=== PATIENT | female | born 1965 | race Asian ===

== ENCOUNTER 2019-09-25 17:03 | Emergency (ER) | payer OTHER ==
--- OUTSIDE RECORDS SUMMARY | 2019-09-25 17:06 | XMS REPORT | Summary of Care ---
:1965 Author Organization [facility] Address [address] [place] [address] Care Team Providers Name Role Phone Vianca Barrera MD Primary Care Provider Reason for Visit Reason Comments Refill Request HYDROcodone-acetaminophen (N ORCO) 10-325 mg tablet ( Please send to [facility] ) Encounter Details Date Type Department Care Team Description 12/22/2018 Telephone [facility] Infectious Gilson Barrera, Refill Request Diseases- Gypsy MCDONALD (HYDROcodone-acetaminop [facility] [address] [facility] hen (NORCO) 10-325 mg [address] [place], [place] tabl et ( Please send to [address] [place] [address] Clinic ) ) [phone] [phone] Allergies Active Allergy Reactions Severity Noted Date Comments Iodine And Iodide Containing Products Hives 09/2012 documented as of this encounter (statuses as of 12/30/2018) Medications Medication Sig Dispensed Refills Start Date End Date Status ferrous sulfate (IRON) Take 1 Cap 90 Cap 0 08/03/2011 Active 325 mg (65 mg iron) SR by mouth capsule daily with breakfast. IBUPROFEN 800 mg TAKE 1 90 tablet 5 08/23/2018 Ac tive tablet TABLET BY MOUTH 3 TIMES DAILY WITH MEALS. Food Supplement, Take 237 mL 12 Can 2 08/24/2018 Active Lactose-Free (ENSURE by mouth 3 ACTIVE HIGH PROTEIN) (three) liquidIndications: HIV times daily. (human immunodeficiency virus infection), Hypertension, unspecified type amLODIPine 10 mg Take 1 30 tablet 5 08/24/2018 Ac tive tabletIndications: HIV tablet by (human mouth every immunodeficiency virus morning. infection), Hypertension, unspecified type furosemide 20 mg Take 1 30 tablet 3 08/24/2018 Ac tive tabletIndications: tablet by Edema, unspecified mouth daily. type, Snores KCL 20 mEq Take 1 30 tablet 1 08/24/2018 Active tabletIndications: tablet by Edema, unspecified mouth daily. type, Snores tiZANidine 2 mg Take 1 90 capsule 5 10/24/2018 Ac tive capsuleIndications: capsule by Cervicalgia mouth 3 (three) times daily. zolpidem (AMBIEN CR) Take 1 30 tablet 0 11/09/2018 Active 12.5 mg CR tablet by tabletIndications: EVAN mouth at (generalized anxiety bedtime as disorder) needed for Sleep. traZODONE 100 mg Take 2 60 tablet 2 11/09/2018 Ac tive tabletIndications: tablets by Primary insomnia mouth at bedtime. losartan 50 mg Take 1 30 tablet 3 11/21/2018 Acti ve tabletIndications: tablet by Essential hypertension mouth daily. HYDROcodone-acetaminop Taper dose - 30 tablet 0 11/23/2018 Active hen (NORCO) 10-325 mg 1 po q 6h x tabletIndications: 3d, 1 PO q8h Cervicalgia x3d, 1 po BIDx3d, 1 QD x 3d. pantoprazole 40 mg EC TAKE 1 60 tablet 5 11/23/2018 Active tabletIndications: HIV TABLET BY (human MOUTH 2 immunodeficiency virus (TWO) TIMES infection) DAILY. amitriptyline 75 mg Take 1 30 tablet 5 11/23/2018 Active tabletIndications: HIV tablet by (human mouth at immunodeficiency virus bedtime. infection) abacavir-dolutegravir- Take 1 30 tablet 5 11/23/2018 Active lamivudine 600-50-300 tablet by mg per mouth every tabletIndications: HIV morning. (human immunodeficiency virus infection) zolpidem 10 mg Take 1 30 tablet 0 12/08/2018 Acti ve tabletIndications: tablet by Primary insomnia mouth at bedtime as needed for Insomnia. LORazepam 2 mg Take 1 60 tablet 0 12/30/2018 Acti ve tabletIndications: EVAN tablet by (generalized anxiety mouth 2 disorder) (two) times daily as needed (anxiety). LORazepam 2 mg Take 1 60 tablet 0 11/09/2018 Disc ontinued tabletIndications: EVAN tablet by 9 (generalized anxiety mouth 2 disorder) (two) times daily as needed (anxiety). 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 Spina bifida with hydrocephalus 06/09/2006 Overview: ICD10 Diagnosis Term Utility Clerk Utility documented as of this encounter (statuses as of 12/30/2018) Resolved Problems Problem Noted Date Resolved Date S/P total hysterectomy and bilateral salpingo-oophorectomy 0 05/27/2016 05/27/2016 Anemia 03/25/2016 05/27/2016 Thrombocytopenia 03/25/2016 05/27/2016 Weight loss 01/23/2015 05/27/2016 Diarrhea 01/23/2015 05/27/2016 Lymphadenopathy 01/23/2015 05/27/2016 Insomnia 06/27/2013 05/27/2016 Irregular menstrual cycle 12/17/2006 05/27/2016 Pleurisy 12/09/2005 05/27/2016 Overview: ICD10 Diagnosis Term Utility Clerk Utility Cervicitis and endocervicitis 12/09/2005 05/27/2016 Pain in limb 12/09/2005 05/27/2016 documented as of this encounter (statuses as of 12/30/2018) Immunizations Name Administration Dates Next Due Hep B, Adol or Pedi Dosage 01/01/2016, 07/17/2015, 01/06/201 6 Hepatitis A Adult 08/24/2018 Influenza Virus Vaccine Quad .5 mL IM 6+ 08/24/2018 MO Influenza Virus Vaccine Quad IM 3+ YRS 03/31/2016 Pneumococcal Polysaccharide, PPSV23 08/24/2018 (PNEUMOVAX) Tdap 08/24/2018 documented as of this encounter Social History Tobacco Use Types Packs/Day Years Used Date Never Smoker Smokeless Tobacco: Never Used Alcohol Use Drinks/Week oz/Week Comments No 0 Standard drinks or equivalent 0.0 Sex Assigned at Date Recorded Not on file Job Start Date Occupation Industry Not on file Not on file Not on file Travel History Travel Start Travel End No recent travel history available. documented as of this encounter Last Filed Vital Signs Not on filedocumented in this encounter Plan of Treatment Date Type Specialty Care Team Description 02/15/2019 Office Visit Infectious Disease Janessa Lee MD [address] [place] [phone] 02/22/2019 Office Visit Cardiology No Hearn M D [address] [place], [place] [address] [phone] 03/01/2019 Office Visit Infectious Disease Tono Barrera MD [address] [place] [address] Health Maintenance Due Date Last Done Comments PAP SMEAR 11/26/2009 11/26/2006 COLONOSCOPY 2016 Zoster Recombinant Vaccine (SHINGRIX) (1 2016 of 2) MAMMOGRAM 04/13/2018 04/13/2017, 05/07/2011 INFLUENZA VACCINE 01/22/2019 08/24/2018, 03/31/2016 PNEUMOCOCCAL 0-64 YEARS COMBINED SERIES (2 08/25/201908/24 of 3 - PCV13) DTaP,Tdap,and Td Vaccines (2 - Td) 08/24/2028 08/24/2018 documented as of this encounter Results Not on filedocumented in this encounter Visit Diagnoses Diagnosis EVAN (generalized anxiety disorder) Generalized anxiety disorder documented in this encounter Insurance Payer Benefit Plan / Subscriber ID Effective Dates Phone Addre ss Type Group MEDICARE MEDICARE PART xxxxxxxxxxx 2018-Presgabriel [phone] Medicare A & B t 2 [id number] ARELIS SANCHEZ [id number] documented as of this encounter Advance Directives Type Date Recorded Patient Help Desk Internship Explanati on Advance Directives and Living 01/14/2015 2:00 PM Will Power of Senior Business Analyst 08/08/2018 2:03 PM
--- OUTSIDE RECORDS SUMMARY | 2019-09-25 17:06 | XMS REPORT | Summary of Care ---
:1965 Author Organization [facility] Address [address] [place], [place] [id number] Care Team Providers Name Role Phone Vianca Barrera MD Primary Care Provider Reason for Visit Reason Comments Erroneous encounter-disregard Encounter Details Date Type Department Care Team Description 12/08/2017 Refill [facility] Infectious Gilson Barrera, Erroneous Diseases- [place] MD encounter-disregard [address] Floor [phone] [place] [address] [phone] Allergies Active Allergy Reactions Severity Noted Date Comments Iodine And Iodide Containing Products Hives 09/2012 documented as of this encounter (statuses as of 12/22/2018) Medications Medication Sig Dispensed Refills Start Date End Date Status ferrous sulfate (IRON) Take 1 Cap by 90 Cap 0 08/03/2011 Active 325 mg (65 mg iron) SR mouth daily with capsule breakfast. 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 Spina bifida with hydrocephalus 06/09/2006 Overview: ICD10 Diagnosis 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 documented as of this encounter (statuses as of 12/22/2018) Resolved Problems Problem Noted Date Resolved Date S/P total hysterectomy and bilateral salpingo-oophorectomy 0 05/27/2016 05/27/2016 Anemia 03/25/2016 05/27/2016 Thrombocytopenia 03/25/2016 05/27/2016 Weight loss 01/23/2015 05/27/2016 Diarrhea 01/23/2015 05/27/2016 Lymphadenopathy 01/23/2015 05/27/2016 Insomnia 06/27/2013 05/27/2016 Irregular menstrual cycle 12/17/2006 05/27/2016 Pleurisy 12/09/2005 05/27/2016 Overview: ICD10 Diagnosis 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 Cervicitis and endocervicitis 12/09/2005 05/27/2016 Pain in limb 12/09/2005 05/27/2016 documented as of this encounter (statuses as of 12/22/2018) Immunizations Name Administration Dates Next Due Hep B, Adol or Pedi Dosage 01/01/2016, 07/17/2015, 6 Influenza Virus Vaccine Quad IM 3+ YRS 03/31/2016 documented as of this encounter Social History [...] Team Description 02/15/2019 Office Visit Infectious Disease Self, Janessa oconnell MD [address] [place] [address] 02/22/2019 Office Visit Cardiology No Hearn M D [address] [facility] [address] [place], [place] [address] [phone] 03/01/2019 Office Visit Infectious Disease Tono Barrera MD [address] [place], [place] [address] [phone] Health Maintenance Due Date Last Done Comments PAP SMEAR 11/26/2009 11/26/2006 COLONOSCOPY 2016 Zoster Recombinant Vaccine (SHINGRIX) (1 2016 of 2) MAMMOGRAM 04/13/2018 04/13/2017, 05/07/2011 INFLUENZA VACCINE 01/22/2019 08/24/2018, 03/31/2016 PNEUMOCOCCAL 0-64 YEARS COMBINED SERIES (2 08/25/201908/24 of 3 - PCV13) DTaP,Tdap,and Td Vaccines (2 - Td) 08/24/2028 08/24/2018 documented as of this encounter Results CD4 SUBSET ASSAY (12/08/2017 10:47 AM CDT) Pathologist Sig nature CD4 % 29 (L) 31 - 60 % [facility] CD4 Absolute 739 410-1,590 Cells/L [facility] LEONARDO Specimen Blood Performing Organization Address City/State/Zipcode Phone Number [facility] CLIA: [id number], [address] [place], [place] [address] [facility] HCV BY PCR (12/08/2017 10:47 AM CDT) HCV by Real Time PCR Not detected log [facility] Quantitative Log IU/mL SERVICES HCV by Real-Time PCR Not detected [facility] Quantitative IU/mL SERVICES HCV by Real-Time PCR Not Detected Not detected [facility] IU/mL SERVICES Specimen Blood - ARM, LEFT Narrative Performed At [facility] Owusu m2000 RealTime HCV reverse ceo na-polyme rase chain reaction (RT-PCR) assay is used. It is FDA approved for the quantitation of HCV in plasma and serum samples for HCV-infected individua ls. The FDA approved dynamic range of this test is 12 IU/mL to 100,000,000 IU/mL (1.08-8.00 Log IU/mL). Assay results are reported in IU /mL. . Result Interpretation: Not Detected: Target not detected (not the same as negative), <12 IU/mL: Detected (but not quantifiabl e) 12-100,000,000 IU/mL, >100,000,000 IU/mL: >upper limit of quantification. Performing Organization Address City/State/Zipcode Phone Number [facility] CLIA: [id number], [address] [place], [place] [address] [facility] documented in this encounter Visit Diagnoses Diagnosis HIV (human immunodeficiency virus infect ion) - Primary Asymptomatic human immunodeficiency viru s (HIV) infection status documented in this encounter Insurance Payer Benefit Plan / Subscriber ID Effective Dates Phone Addre ss Type Group [facility] MEDICAID OF xxxxxxxxx 2017-19 [address] Medicaid [place] [id number] [place] [address] documented as of this encounter Advance Directives Type Date Recorded Patient Cooperer Explanati on Advance Directives and Living 01/14/2015 2:00 PM Will Power of Elevator Operator Freight 08/08/2018 2:03 PM
--- OUTSIDE RECORDS SUMMARY | 2019-09-25 17:06 | XMS REPORT | Summary of Care ---
:1965 Author Organization [facility] - [facility] Address [address] [place] [address] Care Team Providers Name Role Phone Vianca Barrera MD Primary Care Provider Reason for Referral (Routine) Status Reason Specialty Diagnoses / Procedures Referred By Tyrese sousa Referred To Contact Closed Cardiology Diagnoses Essential hypertension No Hearn MD Procedures ECHO ROUTINE W/DOPPLER COLOR Preferred Location: [address] [place], [place] [address] Phone: Reason for Visit (Routine) Status Reason Specialty Diagnoses / Procedures Referred By Tyrese sousa Referred To Contact Closed Cardiology Diagnoses Essential hypertension No Hearn MD Procedures ECHO ROUTINE W/DOPPLER COLOR Preferred Location: [address] [place], [place] [address] Phone: Encounter Details Date Type Department Care Team Description 12/19/2018 Laboratory Only [facility] No Hearn M D [address] [place] [address] [address] [place] [address] Essential Cardiology- [facility] Cardio Fac [address] Cardio Fac [facility], [address] [place] [address] Allergies Active Allergy Reactions Severity Noted Date Comments Iodine And Iodide Containing Products Hives 09/2012 documented as of this encounter (statuses as of 12/20/2018) Medications Medication Sig Dispensed Refills Start Date End Date Status ferrous sulfate (IRON) Take 1 Cap by 90 Cap 0 08/03/2011 Active 325 mg (65 mg iron) SR mouth daily capsule with breakfast. IBUPROFEN 800 mg tablet TAKE 1 TABLET 90 tablet 5 08/23/2018 Active BY MOUTH 3 TIMES DAILY WITH MEALS. Food Supplement, Take 237 mL by 12 Can 2 08/24/2018 Active Lactose-Free (ENSURE mouth 3 (three) ACTIVE HIGH PROTEIN) times daily. liquidIndications: HIV (human immunodeficiency virus infection), Hypertension, unspecified type amLODIPine 10 mg Take 1 tablet 30 tablet 5 08/24/2018 Active tabletIndications: HIV by mouth every (human immunodeficiency morning. virus infection), Hypertension, unspecified type furosemide 20 mg Take 1 tablet 30 tablet 3 08/24/2018 Active tabletIndications: by mouth daily. Edema, unspecified type, Snores KCL 20 mEq Take 1 tablet 30 tablet 1 08/24/2018 Acti ve tabletIndications: by mouth daily. Edema, unspecified type, Snores tiZANidine 2 mg Take 1 capsule 90 capsule 5 10/24/2018 Active capsuleIndications: by mouth 3 Cervicalgia (three) times daily. zolpidem (AMBIEN CR) Take 1 tablet 30 tablet 0 11/09/2018 Active 12.5 mg CR by mouth at tabletIndications: EVAN bedtime as (generalized anxiety needed for disorder) Sleep. LORazepam 2 mg Take 1 tablet 60 tablet 0 11/09/2018 Active tabletIndications: EVAN by mouth 2 (generalized anxiety (two) times disorder) daily as needed (anxiety). traZODONE 100 mg Take 2 tablets 60 tablet 2 11/09/2018 Active tabletIndications: by mouth at Primary insomnia bedtime. losartan 50 mg Take 1 tablet 30 tablet 3 11/21/2018 Active tabletIndications: by mouth daily. Essential hypertension HYDROcodone-acetaminophe Taper dose - 1 30 tablet 0 11/23/2018 Active n (NORCO) 10-325 mg po q 6h x 3d, 1 tabletIndications: PO q8h x3d, 1 Cervicalgia po BIDx3d, 1 QD x 3d. pantoprazole 40 mg EC TAKE 1 TABLET 60 tablet 5 11/23/2018 Active tabletIndications: HIV BY MOUTH 2 (human immunodeficiency (TWO) TIMES virus infection) DAILY. amitriptyline 75 mg Take 1 tablet 30 tablet 5 11/23/2018 Active tabletIndications: HIV by mouth at (human immunodeficiency bedtime. virus infection) mufxytjb-iyagbadmqmss-bb Take 1 tablet 30 tablet 5 11/23/2018 Active mivudine 600-50-300 mg by mouth every per tabletIndications: morning. HIV (human immunodeficiency virus infection) zolpidem 10 mg Take 1 tablet 30 tablet 0 12/08/2018 Active tabletIndications: by mouth at Primary insomnia bedtime as needed for Insomnia. 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 Spina bifida with hydrocephalus 06/09/2006 Overview: ICD10 Diagnosis 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 Operator Helper Utility documented as of this encounter (statuses as of 12/20/2018) Resolved Problems Problem Noted Date Resolved Date S/P total hysterectomy and bilateral salpingo-oophorectomy 0 05/27/2016 05/27/2016 Anemia 03/25/2016 05/27/2016 Thrombocytopenia 03/25/2016 05/27/2016 Weight loss 01/23/2015 05/27/2016 Diarrhea 01/23/2015 05/27/2016 Lymphadenopathy 01/23/2015 05/27/2016 Insomnia 06/27/2013 05/27/2016 Irregular menstrual cycle 12/17/2006 05/27/2016 Pleurisy 12/09/2005 05/27/2016 Overview: ICD10 Diagnosis Term Casting Operator Helper Utility Cervicitis and endocervicitis 12/09/2005 05/27/2016 Pain in limb 12/09/2005 05/27/2016 documented as of this encounter (statuses as of 12/20/2018) Immunizations Name Administration Dates Next Due Hep B, Adol or Pedi Dosage 01/01/2016, 07/17/2015, 6 Hepatitis A Adult 08/24/2018 Influenza Virus [...] of this encounter Last Filed Vital Signs Vital Sign Reading Time Taken Comments Blood Pressure 124/67 12/19/2018 11:12 AM CDT Pulse 91 12/19/2018 11:12 AM CDT Temperature - - Respiratory Rate - - Oxygen Saturation - - Inhaled Oxygen Concentration - - Weight 108 kg (238 lb) 12/19/2018 11:12 AM CDT Height 172.7 cm (5' 8") 12/19/2018 11:12 AM CDT Body Mass Index 36.19 12/19/2018 11:12 AM CDT documented in this encounter Plan of Treatment Date Type Specialty Care Team Description 02/15/2019 Office Visit Infectious Disease Janessa Lee MD [address] [place] [phone] 02/22/2019 Office Visit Cardiology No Hearn M D [address] [place] [address] [phone] 03/01/2019 Office Visit Infectious Disease Tono Barrera MD [address] [place], [place] [address] Health Maintenance Due Date Last Done Comments PAP SMEAR 11/26/2009 11/26/2006 COLONOSCOPY 2016 Zoster Recombinant Vaccine (SHINGRIX) (1 2016 of 2) MAMMOGRAM 04/13/2018 04/13/2017, 05/07/2011 INFLUENZA VACCINE 01/22/2019 08/24/2018, 03/31/2016 PNEUMOCOCCAL 0-64 YEARS COMBINED SERIES (2 08/25/201908/24 of 3 - PCV13) DTaP,Tdap,and Td Vaccines (2 - Td) 08/24/2028 08/24/2018 documented as of this encounter Procedures Procedure Name Priority Date/Time Associated Diagnosis Comme nts ECHO ROUTINE Routine 12/19/2018 11:09 Essential Results for this W/DOPPLER COLOR AM CDT hypertension procedure ar e in the results section. documented in this encounter Results ECHO ROUTINE W/DOPPLER COLOR Preferred Location: [facility] (12/19/2018 11:09 AM CDT) Specimen Performing Organization Address City/State/Zipcode Phone Number ECHO documented in this encounter Visit Diagnoses Diagnosis Essential hypertension Unspecified essential hypertension documented in this encounter Insurance Payer Benefit Plan / Subscriber ID Effective Dates Phone Addre ss Type Group MEDICARE MEDICARE PART xxxxxxxxxxx 2018-[place] [phone] [address] [facility] Medicare A & B t 2 [id number] [place]LIS SANCHEZ [id number] documented as of this encounter Advance Directives Type Date Recorded Patient Health Careers Instructor Explanati on Advance Directives and Living 01/14/2015 2:00 PM Will Power of Hot End Operator 08/08/2018 2:03 PM
--- OUTSIDE RECORDS SUMMARY | 2019-09-25 17:06 | XMS REPORT ---
:1965 Author Organization Formerly [facility] t Address [address] [place] [address] Care Team Providers Name Role Phone Unavailable Unavailable Unavailable Payers Payer Name Policy Type Policy Number Effective Date Expiration D ate Problems This patient has no known problems. Allergies, Adverse Reactions, Alerts Allergy Allergy Status Severity Reaction(s) Onset Inactive Treating C omments Name Type Date Date Clinician iodine DA Active U 2013-03 00:00:0 0 Medications This patient has no known medications. Results Test Description Test Time Test Comments Text Results Atomic Results Result Comments COMPREHENSIVE METABOLIC PANEL 2018-07-10 02:47:00 Test Item Value Reference Range Comments SODIUM (test code = NA) 135 mmol/l 134.0-147.0 POTASSIUM (test code = K) 3.0 mmol/L 3.6-5.2 CHLORIDE (test code = CL) 98 mmol/l 98.0-107.0 CARBON DIOXIDE (test code = CO2) 27.4 mmol/l 21.0-33.0 ANION GAP (test code = GAP) 12.6 0-20 GLUCOSE (test code = GLU) 99 mg/dl 70.0-110.0 BLOOD UREA NITROGEN (test code = BUN) 10 mg/dl 7.0-18.0 CREATININE (test code = CREAT) 1.11 mg/dL 0.60-1.30 GFR NON BLACK (test code = GFRNONBLACK) 55 mL/min 90-95 GFR BLACK (test code = GFRBLACK) 66 mL/min 109-115 TOTAL PROTEIN (test code = PROT) 9.4 gm/dL 6.4-8.2 ALBUMIN (test code = ALB) 4.2 gm/dl 3.2-4.7 CALCIUM (test code = CA) 9.9 mg/dl 8.0-10.5 BILIRUBIN TOTAL (test code = BILT) 0.3 mg/dl 0.0-1.0 SGOT/AST (test code = AST) 20 Units/L 15.0-37.0 SGPT/ALT (test code = ALT) 25 Units/L 12.0-78.0 ALKALINE PHOSPHATASE TOTAL (test code = ALKP) 94 Units/L 50 .0-136.0 [id number] 02:47:00 Test Item Value Reference Range Comments LIPASE (test code = LIP) 78 Units/L 65.0-230.0 B-TYPE NATRIURETIC [id number] 02:47:00 Test Item Value Reference Range Comments B-TYPE NATRIURETIC PEPTIDE (test code = BNP) <5.0 PG/ML 5-1 00 CARDIAC ENZYMES [id number] 02:47:00 Test Item Value Reference Range Comments CREATINE KINASE (CK) (test 184 Units/L 26-192 code = CK) CKMB (test code = CKMBT) 1.1 NG/ML 0.5-5.[address] CKMB INDEX CALCULATION WHEN EVER THE CKMBT ISREPORTED <0 .5 CKMB INDEX (test code = 0.6 0.0-2.5 CKMBI) TROPONIN-I (test code = <0.02 NG/ML 0.00-0.06 REFERENC E RANGE TROPONIN I TROPI) HEALTHY INDIVIDU ALS: <0.06 ng/mL R/O ISCHEM IA: 0.07 - 0.60 ng/mL CUT-O FF RANGE FOR AMI: 0.60 - 1.5 ng/mL [id number] 02:47:00 Test Item Value Reference Range Comments ALCOHOL (test code = ALC) 0.00 gm/dL 0.00-0.00 ETHYL ALCOHOL VALUES - INTERPRETATION: 0.050 GM/DL - NOT INTOXICATED 0.100 GM/DL - INTOXICATED 0.35 0-0.450 GM/DL - SEVERELY INTOXIC ATED 0.550 GM/DL- FATAL INT OXICATION COMPREHENSIVE METABOLIC [id number] 02:35:00 Test Item Value Reference Range Comments SODIUM (test code = NA) 135 mmol/l 134.0-147.0 POTASSIUM (test code = K) 3.0 mmol/L 3.6-5.2 CHLORIDE (test code = CL) 98 mmol/l 98.0-107.0 CARBON DIOXIDE (test code = CO2) 27.4 mmol/l 21.0-33.0 ANION GAP (test code = GAP) 12.6 0-20 GLUCOSE (test code = GLU) 99 mg/dl 70.0-110.0 BLOOD UREA NITROGEN (test code = BUN) 10 mg/dl 7.0-18.0 CREATININE (test code = CREAT) 1.11 mg/dL 0.60-1.30 GFR NON BLACK (test code = GFRNONBLACK) 55 mL/min 90-95 GFR BLACK (test code = GFRBLACK) 66 mL/min 109-115 TOTAL PROTEIN (test code = PROT) 9.4 gm/dL 6.4-8.2 ALBUMIN (test code = ALB) 4.2 gm/dl 3.2-4.7 CALCIUM (test code = CA) 9.9 mg/dl 8.0-10.5 BILIRUBIN TOTAL (test code = BILT) 0.3 mg/dl 0.0-1.0 SGOT/AST (test code = AST) 20 Units/L 15.0-37.0 SGPT/ALT (test code = ALT) 25 Units/L 12.0-78.0 ALKALINE PHOSPHATASE TOTAL (test code = ALKP) 94 Units/L 50 .0-136.0 [id number] 02:35:00 Test Item Value Reference Range Comments LIPASE (test code = LIP) 78 Units/L 65.0-230.0 B-TYPE NATRIURETIC [id number] 02:35:00 Test Item Value Reference Range Comments B-TYPE NATRIURETIC PEPTIDE (test code = BNP) PG/ML 5-1 00 CARDIAC ENZYMES [id number] 02:35:00 Test Item Value Reference Range Comments CREATINE KINASE (CK) (test 184 Units/L 26-192 code = CK) CKMB (test code = CKMBT) 1.1 NG/ML 0.5-5.[address] CKMB INDEX CALCULATION WHEN EVER THE CKMBT ISREPORTED <0 .5 CKMB INDEX (test code = 0.6 0.0-2.5 CKMBI) TROPONIN-I (test code = <0.02 NG/ML 0.00-0.06 REFERENC E RANGE TROPONIN I TROPI) HEALTHY INDIVIDU ALS: <0.06 ng/mL R/O ISCHEM IA: 0.07 - 0.60 ng/mL CUT-O FF RANGE FOR AMI: 0.60 - 1.5 ng/mL [id number] 02:35:00 Test Item Value Reference Range Comments ALCOHOL (test code = ALC) 0.00 gm/dL 0.00-0.00 ETHYL ALCOHOL VALUES - INTERPRETATION: 0.050 GM/DL - NOT INTOXICATED 0.100 GM/DL - INTOXICATED 0.35 0-0.450 GM/DL - SEVERELY INTOXIC ATED 0.550 GM/DL- FATAL INT OXICATION COMPREHENSIVE METABOLIC [id number] 02:17:00 Test Item Value Reference Range Comments SODIUM (test code = NA) 135 mmol/l 134.0-147.0 POTASSIUM (test code = K) 3.0 mmol/L 3.6-5.2 CHLORIDE (test code = CL) 98 mmol/l 98.0-107.0 CARBON DIOXIDE (test code = CO2) 27.4 mmol/l 21.0-33.0 ANION GAP (test code = GAP) 12.6 0-20 GLUCOSE (test code = GLU) mg/dl 70.0-110.0 BLOOD UREA NITROGEN (test code = BUN) mg/dl 7.0-18.0 CREATININE (test code = CREAT) mg/dL 0.60-1.30 GFR NON BLACK (test code = GFRNONBLACK) mL/min 90-95 GFR BLACK (test code = GFRBLACK) mL/min 109-115 TOTAL PROTEIN (test code = PROT) gm/dL 6.4-8.2 ALBUMIN (test code = ALB) gm/dl 3.2-4.7 CALCIUM (test code = CA) mg/dl 8.0-10.5 BILIRUBIN TOTAL (test code = BILT) mg/dl 0.0-1.0 SGOT/AST (test code = AST) Units/L 15.0-37.0 SGPT/ALT (test code = ALT) Units/L 12.0-78.0 ALKALINE PHOSPHATASE TOTAL (test code = ALKP) Units/L 50 .0-136.0 [id number] 02:17:00 Test Item Value Reference Range Comments LIPASE (test code = LIP) Units/L 65.0-230.0 B-TYPE NATRIURETIC [id number] 02:17:00 Test Item Value Reference Range Comments B-TYPE NATRIURETIC PEPTIDE (test code = BNP) PG/ML 5-1 00 CARDIAC ENZYMES [id number] 02:17:00 Test Item Value Reference Range Comments CREATINE KINASE (CK) (test code = CK) Units/L 26-192 CKMB (test code = CKMBT) NG/ML 0.5-5.0 CKMB INDEX (test code = CKMBI) 0.0-2.5 TROPONIN-I (test code = TROPI) NG/ML 0.00-0.06 [id number] 02:17:00 Test Item Value Reference Range Comments ALCOHOL (test code = ALC) gm/dL 0.00-0.00 URINALYSIS [id number] 01:49:00 Test Item Value Reference Range Comments UA COLOR (test code = COLU) LT YELLOW UA APPEARANCE (test code = APPU) CLEAR UA GLUCOSE DIPSTICK (test code = DGLUU) NORMAL mg/dl NORMAL UA BILIRUBIN DIPSTICK (test code = NEGATIVE mg/dL NEGATIVE BILU) UA KETONE DIPSTICK (test code = KETU) NEGATIVE mg/dl NEGATIVE UA SPECIFIC GRAVITY (test code = SGU) 1.020 1.000-1.03 0 UA BLOOD DIPSTICK (test code = FAYE) 10 Preston/micL Preston/micL NEGATIV E UA PH DIPSTICK (test code = SUSAN) 5.0 5.0-9.0 UA PROTEIN DIPSTICK (test code = PROU) NEGATIVE mg/dl NEGATIVE UA UROBILINIOGEN DIPSTICK (test code = NORMAL mg/dl NORMAL URO) UA NITRITE DIPSTICK (test code = VANDANA) NEGATIVE NEGATIVE UA LEUKOCYTE ESTERASE DIPSTICK (test NEGATIVE David/micL NEGATIVE code = LEUU) UA WBC (test code = WBCU) 0-2 WBC/HPF NONE UA RBC (test code = RBCU) 1-3 RBC/HPF 0-3 UA EPITHELIAL CELLS (test code = EPIU) 0-3 EPI/HPF 0-3 UA BACTERIA (test code = BACU) FEW NONE PROTHROMBIN [id number] 01:49:00 Test Item Value Reference Range Comments PROTHROMBIN TIME PATIENT 12.4 SECONDS 9.9-12.8 (test code = PTP) INTERNATIONAL NORMAL RATIO 1.0 0.89-1.14 THE I NR IS TO BE USED ONLY (test code = INR) FOR MONITORING ORAL ANTICOAGULANTTHE RAPY. THE FOLLOWING ARE KNIGHT GGESTED RANGES FROM [facility] [employer]:INDIC ATION INR VALUEPROPHY LAXIS OF VENOUS THROMBOSI S (ORTHOPEDIC SURG PRESTON) 2.0 - 3.0PROPHYLAXIS O F VENOUS THROMBOSIS (OTH ER THAN HIGH-RISK SURGER Y) 2.0 - 3.0T REATMENT OF DEEP VEIN THROMB OSIS OR PULMONARY EMBOLI SM 2.0 - 3.0PREVENTION OF SYSTEMIC EMBOLISM TISSUE HEART VALVES 2.0 - 3.0 ACUTE MYOCARDIAL INFARCTION ( TO PREVENT SYSTEMIC EMBOLIS M) 2.0 - 3.0 AC [place] MYOCARDIAL INFAR CTION (TO PREVENT RECURREN T INFARCT) 2.5 - 3.0 VALVULAR HEART D ISEASE 2.0 - 3.0 ATRIAL FIBRILATI ON 2.0 - 3.0BILEAFLET MEC HANICAL VALVE IN AORTIC POSITI ON 2.0 - 3.0MECHANICAL SD OSTHETIC VALVES (HIGH RIS K) 2.5 - 3.5PRESENC E OF LUPUS ANTICOAGULANT OR ANTIPHOSPHOLIPID ANTIBODIES 2.5 - 3.5 THROMBOPLASTIN TIME [id number] 01:49:00 Test Item Value Reference Range Comments THROMBOPLASTIN TIME 30.80 SECONDS 25.86-36.07 [facility] Therapeutic PARTIAL (test code = PTT) Range - APTT of 55.8-85.4 secondscorrelate s with plasma heparin concentr ation of 0.2-0.4 u/mL New range effective - 06/25 D-DIMER/[id number] 01:49:00 Test Item Value Reference Range Comments D-DIMER/FSP (test code = 203 ng/mL 200.0-230.0 *Per emergency man DDIMER) recommendation, the CUT OFFfor t he Diagnosis of PE or DVT with a 10 0% SENSITIVITY &100% PREDICTIVE VALUE is suggested to be 230 ng/mL D-DIMERUNIT(DDU) . D-DIMER RESULTS MAY BE AFFECTED BY:1. HEMOGLOBIN > 100 mg/dL2. BILI ACUNA > 10 mg/dL3. TRIGLYCERIDES > 1500 mg/dL4. The presence of RHEU MATIOID FACTOR may produce an ove restimation of the test result. URINALYSIS [id number] 01:47:00 Test Item Value Reference Range Comments UA COLOR (test code = COLU) LT YELLOW UA APPEARANCE (test code = APPU) CLEAR UA GLUCOSE DIPSTICK (test code = DGLUU) NORMAL mg/dl NORMAL UA BILIRUBIN DIPSTICK (test code = NEGATIVE mg/dL NEGATIVE BILU) UA KETONE DIPSTICK (test code = KETU) NEGATIVE mg/dl NEGATIVE UA SPECIFIC GRAVITY (test code = SGU) 1.020 1.000-1.03 0 UA BLOOD DIPSTICK (test code = FAYE) 10 Preston/micL Preston/micL NEGATIV E UA PH DIPSTICK (test code = SUSAN) 5.0 5.0-9.0 UA PROTEIN DIPSTICK (test code = PROU) NEGATIVE mg/dl NEGATIVE UA UROBILINIOGEN DIPSTICK (test code = NORMAL mg/dl NORMAL URO) UA NITRITE DIPSTICK (test code = VANDANA) NEGATIVE NEGATIVE UA LEUKOCYTE ESTERASE DIPSTICK (test NEGATIVE David/micL NEGATIVE code = LEUU) UA WBC (test code = WBCU) WBC/HPF NONE UA RBC (test code = RBCU) RBC/HPF 0-3 UA EPITHELIAL CELLS (test code = EPIU) EPI/HPF 0-3 UA BACTERIA (test code = BACU) NONE CBC W/AUTO [id number] 01:45:00 Test Item Value Reference Range Comments WHITE BLOOD CELL (test code = WBC) 7.3 K/mm3 4.5-11.0 RED BLOOD CELL (test code = RBC) 3.93 M/mm3 3.80-5.20 HEMOGLOBIN (test code = HGB) 12.6 gm/dL 12.0-16.0 HEMATOCRIT (test code = HCT) 35.6 % 36.0-48.0 MEAN CELL VOLUME (test code = MCV) 90.6 UM3 82.0-99.0 MEAN CELL HGB (test code = MCH) 32.1 UUG 25.5-32.5 MEAN CELL HGB CONCETRATION (test code = MCHC) 35.4 gm/dL 29 .0-35.5 RED CELL DISTRIBUTION WIDTH (test code = RDW) 13.4 % 11 .5-15.0 PLATELET COUNT (test code = PLT) 412 K/mm3 150-400 MEAN PLATELET VOLUME (test code = MPV) 9.7 fl 7.4-10.4 NEUTROPHIL % (test code = NT%) 37.6 % 49.0-76.0 LYMPHOCYTE % (test code = LY%) 49.9 % 23.0-38.0 MONOCYTE % (test code = MO%) 9.5 % 1.0-10.0 EOSINOPHIL % (test code = EO%) 2.5 % 1.0-5.0 BASOPHIL % (test code = BA%) 0.4 % 0.0-1.0 NEUTROPHIL # (test code = NT#) 2.8 K/mm3 2.4-6.3 LYMPHOCYTE # (test code = LY#) 3.7 K/mm3 1.2-4.0 MONOCYTE # (test code = MO#) 0.7 K/mm3 0.0-0.6 EOSINOPHIL # (test code = EO#) 0.2 K/MM3 0.0-0.7 BASOPHIL # (test code = BA#) 0.0 K/mm3 0.0-0.2 DRUGS OF ABUSE SCREEN [id number] 01:45:00 Test Item Value Reference Range Comments URN COCAINE (test code = NEGATIVE NEGATIVE Cocaine cut-off concentration: 300 COCAURN) ng/mL URN CANNABINOIDS (test NEGATIVE NEGATIVE Cannabino ids cut-off code = CANNABURN) concentration: 50 ng/mL URN AMPHETAMINE (test code NEGATIVE NEGATIVE Amphe tamine cut-off concentration: = AMPHETURN) 1000 ng/mL URN BARBITURATE (test code NEGATIVE NEGATIVE Ally turate cut-off concentration: = BARBITURN) 200 ng/mL URN BENZODIAZEPINE (test NEGATIVE NEGATIVE Benzodi azepine cut-off code = BENZOURN) concentration: 200 ng/mL URN OPIATES (test code = POSITIVE NEGATIVE UNCONF IRMED INITIAL SCREENING OPIATURN) ONLY; SUGGEST ADDITIONALCONFIR MATORY TESTING.Opiates cut-off concentration: 2 00 ng/mL URN PHENCYCLIDINE (PCP) NEGATIVE NEGATIVE Phencycl idine(PCP) cut-off (test code = PHENCURN) concentra tion: 25 ng/ml URN METHADONE (test code = NEGATIVE NEGATIVE Metha done cut-off concentration: METHAURN) 300 ng/mL - XR CHEST 1 [id number] 01:40:00 FAX: Kimberly Thacker MD Clarence: St: REG Name: [facility] : 1965 Age/S: 53/F [address] [facility] Unit#: [id number] Loc: [place], [place] Phys: [place] [id number] Acct: [id number] Dis Date: Status: REG ER PHONE #: [phone] Exam Date: 07/10/2018 0136 FAX #: [phone] Reason: SOB EXAMS: CPT CODE: [id number] XR CHEST 1 V 69569 LOCATION: Q15 HISTORY: 53-year-old female with dyspnea. COMMENT: A frontal chest radiograph was obtained at the bedside at 1:32 a.m., and compared to a prior study of October 19, 2016. The lungs are clear and well-aerated. The cardiac silhouette, opal, and mediastinum are within normal limits. The skeleton is intact, and the surrounding soft tissues are unremarkable. Cardiac monitoring leads are present. IMPRESSION: Unremarkable portable examination of the chest. at 0140 Reported and signed by: Edmund Musa M.D. CC: Kimberly Hodges MD Technologist: JUDI CLIFFORD Trnscrd Date/Time/By: 07/10/2018 (0140) : By: [email or web address] PAGE 1 Signed Report FAX: Kimberly Thacker MD [place]: St: REG Name: SAVAGE HARMON [facility] : 1965 Age/S: 53/F [address] [facility] Unit #: [id number] Loc: [place], [place]: [place] [id number] Acct: [id number] Dis Date: Status: REG ER PHONE #: [phone] Exam Date: 07/10/2018 0136 FAX#: [phone] Reason: SOB EXAMS: CPT CODE: [id number] XR CHEST 1 V 60704 <Continued> Orig Print D/T: S: 07/10/2018 (0143) PAGE 2 Signed Report
--- OUTSIDE RECORDS SUMMARY | 2019-09-25 17:06 | XMS REPORT | Summary of Care ---
:1965 Author Organization [facility] [place] - 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 06/27/2013 Cervicalgia 11/27/2008 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 Spina bifida with hydrocephalus 06/09/2006 Overview: ICD10 Diagnosis 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 Outpatient Receptionist Utility documented as of this encounter (statuses as of 12/22/2018) Resolved Problems Problem Noted Date Resolved Date S/P total hysterectomy and bilateral salpingo-oophorectomy 0 05/27/2016 05/27/2016 Anemia 03/25/2016 05/27/2016 Thrombocytopenia 03/25/2016 05/27/2016 Weight loss 01/23/2015 05/27/2016 Diarrhea 01/23/2015 05/27/2016 Lymphadenopathy 01/23/2015 05/27/2016 Insomnia 06/27/2013 05/27/2016 Irregular menstrual cycle 12/17/2006 05/27/2016 Pleurisy 12/09/2005 05/27/2016 Overview: ICD10 Diagnosis Term Outpatient Receptionist Utility Cervicitis and endocervicitis 12/09/2005 05/27/2016 Pain [...] Visit Infectious Disease Self, Janessa oconnell MD [address] [place] [phone] 02/22/2019 Office Visit Cardiology No Hearn M D [address] [facility] [address] [place] [address] [phone] 03/01/2019 Office Visit Infectious Disease Tono Barrera MD [address] [place], [place] [address] [phone] Health Maintenance Due Date Last Done Comments PAP SMEAR 11/26/2009 11/26/2006 COLONOSCOPY 2016 Zoster Recombinant Vaccine (SHINGRIX) (1 2016 of 2) MAMMOGRAM 04/13/2018 04/13/2017, 05/07/2011 INFLUENZA VACCINE 01/22/2019 08/24/2018, 03/31/2016 PNEUMOCOCCAL 0-64 YEARS COMBINED SERIES (2 08/25/201908/24 of 3 - PCV13) DTaP,Tdap,and Td Vaccines (2 - Td) 08/24/2028 08/24/2018 documented as of this encounter Results Not on filedocumented in this encounter Advance Directives Type Date Recorded 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
--- OUTSIDE RECORDS SUMMARY | 2019-09-25 17:07 | XMS REPORT | Summary of Care ---
:1965 Author Organization [facility] Address [address] [place] [address] Care Team Providers Name Role Phone Vianca Barrera MD Primary Care Provider Reason for Visit Reason Comments Refill Request LORazepam 2 mg tablet Encounter Details Date Type Department Care Team Description 12/30/2018 Refill [facility] Infectious Self, Michelle baker MD Refill Request Diseases- [address] (LORazepam 2 mg tablet) [facility] [address], [place], [place] 6th Floor [address] [place], [place] [phone] [address] [phone] Allergies Active Allergy Reactions Severity Noted Date Comments Iodine And Iodide Containing Products Hives 09/2012 documented as of this encounter (statuses as of 01/02/2019) Medications Medication Sig Dispensed Refills Start Date [...] as of this encounter (statuses as of 01/02/2019) Active Problems Problem Noted Date Tendonitis of wrist, right 02/24/2017 Hypertension 02/24/2017 Bronchitis 02/24/2017 Vertigo 08/12/2016 Knee pain 08/12/2016 Acute cystitis without hematuria 05/27/2016 S/P JEOVANY (total abdominal hysterectomy) 05/27/2016 Status post bilateral salpingectomy 05/27/2016 Obesity (BMI 30-39.9) 03/26/2016 HIV (human immunodeficiency virus infection) 5 Depression 01/23/2015 jail use of drug 06/27/2013 Cervicalgia 11/27/2008 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 Spina bifida with hydrocephalus 06/09/2006 Overview: ICD10 Diagnosis Term Services Advisor Utility documented as of this encounter (statuses as of 01/02/2019) Resolved Problems Problem Noted Date Resolved Date S/P total hysterectomy and bilateral salpingo-oophorectomy 0 05/27/2016 05/27/2016 Anemia 03/25/2016 05/27/2016 Thrombocytopenia 03/25/2016 05/27/2016 Weight loss 01/23/2015 05/27/2016 Diarrhea 01/23/2015 05/27/2016 Lymphadenopathy 01/23/2015 05/27/2016 Insomnia 06/27/2013 05/27/2016 Irregular menstrual cycle 12/17/2006 05/27/2016 Pleurisy 12/09/2005 05/27/2016 Overview: ICD10 Diagnosis Term Services Advisor Utility Cervicitis and endocervicitis 12/09/2005 05/27/2016 Pain in limb 12/09/2005 05/27/2016 documented as of this encounter (statuses as of 01/02/2019) Immunizations Name Administration Dates Next Due Hep [...] Visit Infectious Disease Janessa Lee MD [address] [place] [address] 02/22/2019 Office Visit Cardiology No Hearn M D [address] [place] [address] [place] [address] 03/01/2019 Office Visit Infectious Disease Tono Barrera MD [address] [place], [place] [address] Health Maintenance Due Date [...] MEDICARE PART xxxxxxxxxxx 2018-Darby 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
--- OUTSIDE RECORDS SUMMARY | 2019-09-25 17:07 | XMS REPORT | Summary of Care ---
:1965 Author Organization [facility] Address [address] [place] [address] Care Team Providers Name Role Phone Vianca Barrera MD Primary Care Provider Reason for Referral MRI/CAT Scan (Routine) Status Reason Specialty Diagnoses / Procedures Referred By Scarlet edwards To Contact Contact Closed Diagnostic Diagnoses HIV (human immunodeficiency virus infection) B20 (ICD-10-CM) - HIV (human immunodeficiency virus infection) Gilson Barrera Radiology Procedures CT HEAD WO CONTRAST CHG CT SCAN,HEAD/BRAIN,W/O CONTRAST JHONATHAN [id number] - CT HEAD WO CONTRAST [id number] - CHG CT SCAN,HEAD/BRAIN,W/O CONTRAST JHONATHAN Coley MD [address] [place] [id number] (Routine) Status Reason Specialty Diagnoses / Procedures Referred By Scarlet edwards To Contact Contact Closed Orthopedic Surgery Diagnoses HIV (human immunodeficiency virus infection) Gilson Barrera Procedures REFERRAL ORTHOPAEDIC SURGERY MD Vianca [address] [place] [phone] Reason for Visit Reason Comments Refill Request Encounter Details Date Type Department Care Team Description 12/08/2017 Refill [facility] Infectious Jes Barrera MD Refill Request Diseases- [address] [id number] [facility], [address] [place], [place] [address] 36-0522 [place] [address] Allergies Active Allergy Reactions Severity Noted Date Comments Iodine And Iodide Containing Products Hives 09/2012 documented as of this encounter (statuses as of 01/04/2019) Medications Medication Sig Dispensed Refills Start Date End Date Status ferrous sulfate (IRON) Take 1 Cap by 90 Cap 0 08/03/2011 Active 325 mg (65 mg iron) SR mouth daily with capsule breakfast. 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 Spina bifida with hydrocephalus 06/09/2006 Overview: ICD10 Diagnosis Term Golf Club Maker Utility documented as of this encounter (statuses as of 01/04/2019) Resolved Problems Problem Noted Date Resolved Date S/P total hysterectomy and bilateral salpingo-oophorectomy 0 05/27/2016 05/27/2016 Anemia 03/25/2016 05/27/2016 Thrombocytopenia 03/25/2016 05/27/2016 Weight loss 01/23/2015 05/27/2016 Diarrhea 01/23/2015 05/27/2016 Lymphadenopathy 01/23/2015 05/27/2016 Insomnia 06/27/2013 05/27/2016 Irregular menstrual cycle 12/17/2006 05/27/2016 Pleurisy 12/09/2005 05/27/2016 Overview: ICD10 Diagnosis Term Golf Club Maker Utility Cervicitis and endocervicitis 12/09/2005 05/27/2016 Pain in limb 12/09/2005 05/27/2016 documented as of this encounter (statuses as of 01/04/2019) Immunizations Name Administration Dates Next Due Hep [...] Office [place] [address] [place] [phone] 02/22/2019 Office Visit Cardiology No Hearn M D [address] [place] [address] [place] [address] 15 03/01/2019 Office Visit Infectious Disease Tono Barrera MD [address] [place] [address] Health Maintenance Due Date Last Done Comments PAP SMEAR 11/26/2009 11/26/2006 COLONOSCOPY 2016 Zoster Recombinant Vaccine (SHINGRIX) (1 2016 of 2) MAMMOGRAM 04/13/2018 04/13/2017, 05/07/2011 INFLUENZA VACCINE 01/22/2019 08/24/2018, 03/31/2016 PNEUMOCOCCAL 0-64 YEARS COMBINED SERIES (2 08/25/201908/24 of 3 - PCV13) DTaP,Tdap,and Td Vaccines (2 - Td) 08/24/2028 08/24/2018 documented as of this encounter Results CT HEAD WO CONTRAST (12/22/2017 10:09 AM CDT) Specimen Narrative Performed At CT HEAD WITHOUT CONTRAST PACS/VR/DOSE HISTORY: 47, XX true hermaphrodi te TECHNIQUE: Routine CT scan of the brain is performed without intravenous contrast. Radiation Dose: Up-to-date CT dose reduction technique s were implemented, resulting in a CTDlvol of 49.1 mGy, and DLP of 860 mGy-cm. FINDINGS: There is no evidence of an acu te intracranial abnormality. No intra-axial or extra-axial fluid collections or masses are seen. Small area of low-attenuation is seen in the right basal ganglia likely representing old lacunar infarct. No mass-effect or m idline shift is seen. The ventricles and cisterns are within tay l limits. No calvarial abnormality is noted. CONCLUSIONS: No acute intracranial abnor mality. Procedure Note [facility], Radiant Results Inft User - 2017 10:[address] HEAD WITHOUT CONTRAST HISTORY: 47, XX true hermaphrodite TECHNIQUE: Routine CT scan of the brain is performed without intravenous contrast. Radiation Dose: Up-to-date CT dose reduc tion techniques were implemented, resulting in a CTDlvol of 49.1 mGy, and DLP of 860 mGy-cm. FINDINGS: There is no evidence of an acu te intracranial abnormality. No intra-axial or extra-axial fluid collect ions or masses are seen. Small area of low-attenuation is seen in the right basal ganglia likely representing old lacunar infarct. No mass-effect or m idline shift is seen. The ventricles and cisterns are within tay l limits. No calvarial abnormality is noted. CONCLUSIONS: No acute intracranial abnor mality. Performing Organization Address City/State/Zipcode Phone Number PACS/VR/DOSE documented in this encounter Visit Diagnoses Diagnosis HIV (human immunodeficiency virus infect ion) - Primary Asymptomatic human immunodeficiency viru s (HIV) infection status Spina bifida of cervical region with hyd rocephalus documented in this encounter Insurance Payer Benefit Plan / Subscriber ID Effective Dates Phone Addre ss Type Group [facility] MEDICAID OF xxxxxxxxx 2017-19 [address] [place] [address] [place] [address] documented as of this encounter Advance Directives Type Date Recorded Patient Call Center Support Consultant Explanati on Advance Directives and Living 01/14/2015 2:00 PM Will Power of Woods Warden 08/08/2018 2:03 PM
--- OUTSIDE RECORDS SUMMARY | 2019-09-25 17:07 | XMS REPORT | Summary of Care ---
:1965 Author Organization [facility] Address [address] [place] [address] Care Team Providers Name Role Phone Vianca Barrera MD Primary Care Provider Reason for Visit Reason Comments Refill Request HYDROcodone-acetaminophen (N ORCO) 10-325 mg tablet ( Please send to [facility] ) Encounter Details Date Type Department Care Team Description 12/22/2018 Telephone [facility] Infectious Gilson Barrera, Refill Request Diseases- Gypsy MCDONALD (HYDROcodone-acetaminop [facility] [address] [facility] hen (NORCO) 10-325 mg 1005 [place], [place] tabl et ( Please send to [address] [place] [address] Clinic ) ) [address] [phone] Allergies Active Allergy Reactions Severity Noted Date [...] (human immunodeficiency virus infection) 5 Depression 01/23/2015 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 use of drug 06/27/2013 Cervicalgia 11/27/2008 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 Spina bifida with hydrocephalus 06/09/2006 Overview: ICD10 Diagnosis Term Corporate Paralegal Utility documented as of this encounter (statuses as of 12/30/2018) Resolved Problems Problem Noted Date Resolved Date S/P total hysterectomy and bilateral salpingo-oophorectomy 0 05/27/2016 05/27/2016 Anemia 03/25/2016 05/27/2016 Thrombocytopenia 03/25/2016 05/27/2016 Weight loss 01/23/2015 05/27/2016 Diarrhea 01/23/2015 05/27/2016 Lymphadenopathy 01/23/2015 05/27/2016 Insomnia 06/27/2013 05/27/2016 Irregular menstrual cycle 12/17/2006 05/27/2016 Pleurisy 12/09/2005 05/27/2016 Overview: ICD10 Diagnosis Term Corporate Paralegal Utility Cervicitis and endocervicitis 12/09/2005 05/27/2016 Pain [...] Office Visit Infectious Disease Janessa Lee MD [address] [place] [phone] 02/22/2019 Office Visit Cardiology No Hearn M D [address] [place], [place] [address] 15 [phone] 03/01/2019 Office Visit Infectious Disease Tono Barrera MD [address] [place] [address] 555 Health Maintenance Due Date Last [...] BOX Medicare A & B t 2 [id number] ARELIS SANCHEZ [phone] documented as of this encounter Advance Directives Type Date Recorded 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
--- OUTSIDE RECORDS SUMMARY | 2019-09-25 17:07 | XMS REPORT | Summary of Care ---
:1965 Author Organization [facility] Address [address] [place] [address] Care Team Providers Name Role Phone Vianca Barrera MD Primary Care Provider Reason for Visit Reason Comments Refill Request zolpidem (AMBIEN CR) 12.5 mg CR tablet Encounter Details Date Type Department Care Team Description 01/09/2019 Telephone [facility] Infectious Self, Michelle baker MD Refill Request Diseases- [address] (zolpidem (AMBIEN CR) [facility] 12.5 mg CR tablet) [address] [place] [address] Floor [address] [place], [place] [phone] [address] [phone] Allergies Active Allergy Reactions Severity Noted Date Comments Iodine And Iodide Containing Products Hives 09/2012 documented as of this encounter (statuses as of 01/10/2019) Medications Medication Sig Dispensed Refills Start Date [...] by Cervicalgia mouth 3 (three) times daily. traZODONE 100 mg Take 2 60 tablet [...] tabletIndications: HIV morning. (human immunodeficiency virus infection) LORazepam 2 mg Take 1 60 tablet 0 12/30/2018 Acti ve tabletIndications: EVAN tablet by (generalized anxiety mouth 2 disorder) (two) times daily as needed (anxiety). zolpidem 10 mg Take 1 30 tablet 0 01/10/2019 Acti ve tabletIndications: tablet by Primary insomnia mouth at bedtime as needed for Insomnia. zolpidem (AMBIEN CR) Take 1 30 tablet 0 11/09/2018 01/11/20 1 Discontinued 12.5 mg CR tablet by 9 tabletIndications: EVAN mouth at (generalized anxiety bedtime as disorder) needed for Sleep. zolpidem 10 mg Take 1 30 tablet 0 12/08/2018 Disc ontinued tabletIndications: tablet by 9 Primary insomnia mouth at bedtime as needed for Insomnia. 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 Spina bifida with hydrocephalus 06/09/2006 Overview: ICD10 Diagnosis Term As400 Administrator Utility documented as of this encounter (statuses as of 01/10/2019) Resolved Problems Problem Noted Date Resolved Date S/P total hysterectomy and bilateral salpingo-oophorectomy 0 05/27/2016 05/27/2016 Anemia 03/25/2016 05/27/2016 Thrombocytopenia 03/25/2016 05/27/2016 Weight loss 01/23/2015 05/27/2016 Diarrhea 01/23/2015 05/27/2016 Lymphadenopathy 01/23/2015 05/27/2016 Insomnia 06/27/2013 05/27/2016 Irregular menstrual cycle 12/17/2006 05/27/2016 Pleurisy 12/09/2005 05/27/2016 Overview: ICD10 Diagnosis Term As400 Administrator Utility Cervicitis and endocervicitis 12/09/2005 05/27/2016 Pain in limb 12/09/2005 05/27/2016 documented as of this encounter (statuses as of 01/10/2019) Immunizations Name Administration Dates Next Due Hep [...] Visit Infectious Disease Janessa Lee MD [address] [place] [phone] 02/22/2019 Office Visit Cardiology No Hearn M D [address] [place] [address] 15 03/01/2019 Office Visit Infectious Disease Tono Barrera MD [address] [address] Health Maintenance Due Date Last Done Comments PAP SMEAR 11/26/2009 11/26/2006 COLONOSCOPY 2016 Zoster Recombinant Vaccine (SHINGRIX) (1 2016 of 2) MAMMOGRAM 04/13/2018 04/13/2017, 05/07/2011 INFLUENZA VACCINE (#1) 2019 08/24/2018, 03/31/2016 PNEUMOCOCCAL 0-64 YEARS COMBINED SERIES (2 08/25/201908/24 of 3 - PCV13) DTaP,Tdap,and Td Vaccines (2 - Td) 08/24/2028 08/24/2018 documented as of this encounter Results Not on filedocumented in this encounter Visit Diagnoses Diagnosis Primary insomnia Persistent disorder of initiating or ralph ntaining sleep documented in this encounter Insurance Payer Benefit Plan / Subscriber ID Effective Dates Phone Addre ss Type Group MEDICARE MEDICARE PART xxxxxxxxxxx 2018-Darby [phone] [address] Medicare A & B t 2 [id number] [place] SANCHE[place] [id number] documented as of this encounter Advance Directives Type Date Recorded Patient Watch Parts Grinder Explanati on Advance Directives and Living 01/14/2015 2:00 PM Will Power of Marine Engineering Technicians 08/08/2018 2:03 PM
--- OUTSIDE RECORDS SUMMARY | 2019-09-25 17:08 | XMS REPORT | Summary of Care ---
:1965 Author Organization [address] [address] Care Team Providers Name Role Phone Vianca Barrera MD Primary Care Provider Reason for Visit Reason Comments Notification Psychiatry transfer Encounter Details Date Type Department Care Team Description 02/08/2019 Telephone [facility] Soren Castro RN Notification Infectious Diseases- [address] [place] [address] (Psyc hiatry transfer) [place], [place] [phone] [place] [address], 6th [place] [phone] Allergies Active Allergy Reactions Severity Noted Date Comments Iodine And Iodide Containing Products Hives 09/2012 documented as of this encounter (statuses as of 02/08/2019) Medications Medication Sig Dispensed Refills Start Date End Date Status ferrous sulfate (IRON) Take 1 Cap by 90 Cap 0 08/03/2011 Active 325 mg (65 mg iron) SR mouth daily capsule with breakfast. Food Supplement, Take 237 mL by 12 Can 2 08/24/2018 Active Lactose-Free (ENSURE mouth 3 (three) ACTIVE HIGH PROTEIN) times daily. liquidIndications: HIV (human immunodeficiency virus infection), Hypertension, unspecified type furosemide 20 mg Take 1 tablet 30 tablet 3 08/24/2018 Active tabletIndications: by mouth daily. Edema, unspecified type, Snores KCL 20 mEq Take 1 tablet 30 tablet 1 08/24/2018 Acti ve tabletIndications: by mouth daily. Edema, unspecified type, Snores tiZANidine 2 mg Take 1 capsule 90 capsule 5 10/24/2018 Active capsuleIndications: by mouth 3 Cervicalgia (three) times daily. traZODONE 100 mg Take 2 tablets 60 [...] mouth at (human immunodeficiency bedtime. virus infection) vkgwjwac-yuwgdusmtedl-as Take 1 tablet 30 tablet 5 11/23/2018 Active mivudine 600-50-300 mg by mouth every per tabletIndications: morning. HIV (human immunodeficiency virus infection) LORazepam 2 mg Take 1 tablet 60 tablet 0 12/30/2018 Active tabletIndications: EVAN by mouth 2 (generalized anxiety (two) times disorder) daily as needed (anxiety). zolpidem 10 mg Take 1 tablet 30 tablet 0 01/10/2019 Active tabletIndications: by mouth at Primary insomnia bedtime as needed for Insomnia. IBUPROFEN 800 mg tablet TAKE ONE TABLET 90 tablet 0 02/03/2019 Active BY MOUTH THREE TIMES A DAY WITH MEALS AMLODIPINE 10 mg TAKE ONE TABLET 30 tablet 0 02/03/2019 Active tabletIndications: HIV BY MOUTH EVERY (human immunodeficiency MORNING virus infection), Hypertension, unspecified type documented as of this encounter (statuses as of 02/08/2019) Active Problems Problem Noted Date Tendonitis of wrist, right 02/24/2017 Hypertension 02/24/2017 Bronchitis 02/24/2017 Vertigo 08/12/2016 Knee pain 08/12/2016 Acute cystitis without hematuria 05/27/2016 S/P JEOVANY (total abdominal hysterectomy) 05/27/2016 Status post bilateral salpingectomy 05/27/2016 Obesity (BMI 30-39.9) 03/26/2016 HIV (human immunodeficiency virus infection) 5 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 06/27/2013 Cervicalgia 11/27/2008 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 Spina bifida with hydrocephalus 06/09/2006 Overview: ICD10 Diagnosis Term Night Order Selector Utility documented as of this encounter (statuses as of 02/08/2019) Resolved Problems Problem Noted Date Resolved Date S/P total hysterectomy and bilateral salpingo-oophorectomy 0 05/27/2016 05/27/2016 Anemia 03/25/2016 05/27/2016 Thrombocytopenia 03/25/2016 05/27/2016 Weight loss 01/23/2015 05/27/2016 Diarrhea 01/23/2015 05/27/2016 Lymphadenopathy 01/23/2015 05/27/2016 Insomnia 06/27/2013 05/27/2016 Irregular menstrual cycle 12/17/2006 05/27/2016 Pleurisy 12/09/2005 05/27/2016 Overview: ICD10 Diagnosis Term Night Order Selector Utility Cervicitis and endocervicitis 12/09/2005 05/27/2016 Pain in limb 12/09/2005 05/27/2016 documented as of this encounter (statuses as of 02/08/2019) Immunizations Name Administration Dates Next Due Hep [...] Treatment Date Type Specialty Care Team Description 02/22/2019 Office Visit Cardiology No Hearn M D [address] [facility] [address] [place], [place] [address] [phone] 03/01/2019 Office Visit Infectious Disease Tono Barrera MD [address] [place], [place] [address] [phone] Health Maintenance Due Date Last Done Comments PAP SMEAR 11/26/2009 11/26/2006 COLONOSCOPY 2016 Zoster Recombinant Vaccine (SHINGRIX) (1 2016 of 2) MAMMOGRAM 04/13/2018 04/13/2017, 05/07/2011 INFLUENZA VACCINE (#1) 2019 08/24/2018, 03/31/2016 PNEUMOCOCCAL 0-64 YEARS COMBINED SERIES (2 08/25/201908/24 of 3 - PCV13) DTaP,Tdap,and Td Vaccines (2 - Td) 08/24/2028 08/24/2018 documented as of this encounter Results Not on filedocumented in this encounter Insurance Payer Benefit Plan / Subscriber ID Effective Dates Phone Addre ss Type Group MEDICARE MEDICARE PART xxxxxxxxxxx 2018-Darby [phone] [address] Medicare A & B t 2 [id number] [place] SANCHE[place] [id number] documented as of this encounter Advance Directives Type Date Recorded Patient Supervisor Fitting Explanati on Advance Directives and Living 01/14/2015 2:00 PM Will Power of Lithographic Press Operator Apprentice 08/08/2018 2:03 PM
--- OUTSIDE RECORDS SUMMARY | 2019-09-25 17:08 | XMS REPORT | Summary of Care ---
:1965 Author Organization [facility] - [address] [address] Care Team Providers Name Role Phone Vianca Barrera MD Primary Care Provider Reason for Visit Reason Comments Refill Request Encounter Details Date Type Department Care Team Description 02/02/2019 Refill [facility] Infectious Jes Barrera MD Refill Request Diseases- [place] [id number] [address] [place], [place] [id number] [place] [phone] Allergies Active Allergy Reactions Severity Noted Date Comments Iodine And Iodide Containing Products Hives 09/2012 documented as of this encounter (statuses as of 02/03/2019) Medications Medication Sig Dispensed Refills Start Date End Date Status ferrous sulfate (IRON) Take 1 Cap 90 Cap 0 08/03/2011 Active 325 mg (65 mg iron) SR by mouth capsule daily with breakfast. Food Supplement, Take 237 mL 12 Can [...] mouth at bedtime as needed for Insomnia. IBUPROFEN 800 mg TAKE ONE 90 tablet 0 02/03/2019 Ac tive tablet TABLET BY MOUTH THREE TIMES A DAY WITH MEALS AMLODIPINE 10 mg TAKE ONE 30 tablet 0 02/03/2019 Ac tive tabletIndications: HIV TABLET BY (human MOUTH EVERY immunodeficiency virus MORNING infection), Hypertension, unspecified type IBUPROFEN 800 mg TAKE 1 90 tablet 5 08/23/2018 Di scontinued tablet TABLET BY 9 MOUTH 3 TIMES DAILY WITH MEALS. amLODIPine 10 mg Take 1 30 tablet 5 08/24/2018 Di scontinued tabletIndications: HIV tablet by 9 (human mouth every immunodeficiency virus morning. 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 Spina bifida with hydrocephalus 06/09/2006 Overview: ICD10 Diagnosis Term Corporate Technical Recruiter Utility documented as of this encounter (statuses as of 02/03/2019) Resolved Problems Problem Noted Date Resolved Date S/P total hysterectomy and bilateral salpingo-oophorectomy 0 05/27/2016 05/27/2016 Anemia 03/25/2016 05/27/2016 Thrombocytopenia 03/25/2016 05/27/2016 Weight loss 01/23/2015 05/27/2016 Diarrhea 01/23/2015 05/27/2016 Lymphadenopathy 01/23/2015 05/27/2016 Insomnia 06/27/2013 05/27/2016 Irregular menstrual cycle 12/17/2006 05/27/2016 Pleurisy 12/09/2005 05/27/2016 Overview: ICD10 Diagnosis Term Corporate Technical Recruiter Utility Cervicitis and endocervicitis 12/09/2005 05/27/2016 Pain in limb 12/09/2005 05/27/2016 documented as of this encounter (statuses as of 02/03/2019) Immunizations Name Administration Dates Next Due Hep [...] Visit Infectious Disease Janessa Lee MD [address] [place] [phone] 02/22/2019 Office Visit Cardiology No Hearn M D [address] [place] [phone] 03/01/2019 Office Visit Infectious Disease Tono Barrera MD [address] [place] [address] Health Maintenance Due Date Last Done [...] filedocumented in this encounter Visit Diagnoses Diagnosis HIV (human immunodeficiency virus infect ion) Asymptomatic human immunodeficiency viru s (HIV) infection status Hypertension, unspecified type documented in this encounter Insurance Payer Benefit Plan / Subscriber ID Effective Dates Phone Addre ss Type Group MEDICARE MEDICARE PART xxxxxxxxxxx 2018-Darby [phone] [address] Medicare A & B t 2 [id number] [place] SANCHE[place] [phone] documented as of this encounter Advance Directives Type Date Recorded Patient Machine Marker Explanati on Advance Directives and Living 01/14/2015 2:00 PM Will Power of Engineering Group Manager 08/08/2018 2:03 PM
--- OUTSIDE RECORDS SUMMARY | 2019-09-25 17:08 | XMS REPORT | Summary of Care ---
:1965 Author Organization [facility] - [facility] Address [address] [place] [address] Care Team Providers Name Role Phone Vianca Barrera MD Primary Care Provider Reason for Visit Reason Comments Refill Request Encounter Details Date Type Department Care Team Description 02/06/2019 Refill [facility] Infectious Self, Michelle baker MD Refill Request Diseases- [address] Clin[facility] [place] [address] Floor [phone] [place] [address] [phone] Allergies Active Allergy Reactions Severity Noted Date [...] immunodeficiency virus MORNING infection), Hypertension, unspecified type LORAZEPAM 2 mg Take 1 12 tablet 0 02/08/2019 Acti ve tabletIndications: EVAN tablet by (generalized anxiety mouth 2 disorder) (two) times daily as needed (anxiety). 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 Spina bifida with hydrocephalus 06/09/2006 Overview: ICD10 Diagnosis Term Research Nurse Utility documented as of this encounter (statuses as of 02/08/2019) Resolved Problems Problem Noted Date Resolved Date S/P total hysterectomy and bilateral salpingo-oophorectomy 0 05/27/2016 05/27/2016 Anemia 03/25/2016 05/27/2016 Thrombocytopenia 03/25/2016 05/27/2016 Weight loss 01/23/2015 05/27/2016 Diarrhea 01/23/2015 05/27/2016 Lymphadenopathy 01/23/2015 05/27/2016 Insomnia 06/27/2013 05/27/2016 Irregular menstrual cycle 12/17/2006 05/27/2016 Pleurisy 12/09/2005 05/27/2016 Overview: ICD10 Diagnosis Term Research Nurse Utility Cervicitis and endocervicitis 12/09/2005 05/27/2016 Pain [...] Visit Cardiology No Hearn M D [address] [facility] [address] [place], [place] [address] [phone] 03/01/2019 Office Visit Infectious Disease Tono Barrera MD [address] [place] [address] [phone] Health Maintenance Due Date Last Done Comments [...] BOX Medicare A & B t 2 [id number] [place] [id number] documented as of this encounter Advance Directives Type Date Recorded Patient Edge Sawyer Explanati on Advance Directives and Living 01/14/2015 2:00 PM Will Power of Third Rigger 08/08/2018 2:03 PM
--- OUTSIDE RECORDS SUMMARY | 2019-09-25 17:09 | XMS REPORT | Clinical Summary ---
:1965 Author Organization [facility] Address [address] [place] [id number] Care Team Providers Name Role Phone Vianca Barrera MD Primary Care Provider Allergies Active Allergy Reactions Severity Noted Date Comments Iodine And Iodide Containing Products Hives 09/2012 Medications Medication Sig Dispensed Refills Start Date [...] mouth at (human immunodeficiency bedtime. virus infection) [id number]-fw Take 1 tablet 30 tablet 5 11/23/2018 Active mivudine 600-50-300 mg by mouth every per tabletIndications: morning. HIV (human immunodeficiency virus infection) IBUPROFEN 800 mg tablet TAKE ONE TABLET 90 tablet 0 02/03/2019 Active BY MOUTH THREE TIMES A DAY WITH MEALS AMLODIPINE 10 mg TAKE ONE TABLET 30 tablet 0 02/03/2019 Active tabletIndications: HIV BY MOUTH EVERY (human immunodeficiency MORNING virus infection), Hypertension, unspecified type LORAZEPAM 2 mg Take 1 tablet 12 tablet 0 02/08/2019 Active tabletIndications: EVAN by mouth 2 (generalized anxiety (two) times disorder) daily as needed (anxiety). ZOLPIDEM 10 mg TAKE 1 TABLET 30 tablet 0 02/15/2019 Active tabletIndications: BY MOUTH AT Primary insomnia BEDTIME NEEDED FOR INSOMNIA. 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 Resolved Problems Problem Noted Date Resolved Date S/P total hysterectomy and bilateral salpingo-oophorectomy 0 05/27/2016 05/27/2016 Anemia 03/25/2016 05/27/2016 Thrombocytopenia 03/25/2016 05/27/2016 Weight loss 01/23/2015 05/27/2016 Diarrhea 01/23/2015 05/27/2016 Lymphadenopathy 01/23/2015 05/27/2016 Insomnia 06/27/2013 05/27/2016 Irregular menstrual cycle 12/17/2006 05/27/2016 Pleurisy 12/09/2005 05/27/2016 Overview: ICD10 Diagnosis 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 Cervicitis and endocervicitis 12/09/2005 05/27/2016 Pain in limb 12/09/2005 05/27/2016 Encounters Date Type Specialty Care Team Description 02/13/2019 Refill Infectious Disease Aj Lee Refill Request 02/10/2019 Refill Infectious Aj Garland Refill Request 02/08/2019 Telephone Infectious Disease Soren Castro RN (Psychiatry tra nsfer) 02/06/2019 Refill Infectious Aj Garland Refill Request 02/02/2019 Refill Infectious Disease Gilson Barrera Refill Request MD Vianca 01/09/2019 Telephone Infectious Disease Aj Lee Refill Request (zolpidem (AMBI EN CR) 12.5 mg CR tabl et) 12/30/2018 Refill Infectious Disease Aj Lee Refill Request (LORazepam 2 mg tablet) 12/22/2018 Telephone Infectious Disease Gilson Barrera Refill Request MD Vianca (HYDROcodone-ac etaminop hen (NORCO) 10- 325 mg tablet ( Please send to [facility] ) ) 12/19/2018 Laboratory Only Cardiology No Hearn Essential hypertension [facility], [facility] Cardio Fac 1, Adc Cardio Fac Room 12/09/2018 Telephone Cardiology No Hearn, TEST RESULTS (Sleep MD Study) 12/08/2018 Telephone Infectious Disease Aj Lee, Rx Con cern/Question 12/01/2018 Emergency Emergency Medicine Gold Doll Anxie ty (Primary Dx) 11/30/2018 Cpr Ambulance Driver Visit Sleep Disorder Atanasov, Essential hypertension, Diagnostic Strahil T malignant 1, [facility] Sleep Lab Bed 11/29/2018 Case Management Infectious Disease Alessandro Walters (Miguel Patel RN White Program Account Closure) 11/23/2018 Cpr Ambulance Driver Visit Phlebotomy Gilson Barrera Essential hypertension MD Vianca (Primary Dx) [facility] 11/23/2018 Office Visit Infectious Disease Gilson Barrera HIV (hu man immunodeficiency virus infection) (Primary Dx); MD Vianca Cervicalgia 11/23/2018 Case Management Infectious Disease Jesus, Follow -up (Referred for Charmaine Nicole LVN account closu re, obtained insura nce) 11/22/2018 Telephone Infectious Disease Jesus, Appointme nt (Reminder) Charmaine Nicole LVN 11/22/2018 Refill Pain Medicine Edelmira Ware MD 11/21/2018 Office Visit Cardiology Dhiraj, No, Essential hyp ertension (Primary Dx); MD Mishra; Obesity (BMI 30 -39.9); Edema, unspecif ied type 11/21/2018 Orders Only Doctor Unassigned, [place] 11/21/2018 Telephone Pain Edelmira Marin MD 11/21/2018 Telephone Pain Medicine Edelmira Ware Talk To Prov eddie Crump MD 11/16/2018 Telephone Pain Medicine Edelmira Ware Rx Concern/Q uestion (Pt MD Alisia called to talk with Dr Ware about vo icemail left re the Dr not prescribing her medications); R esults from Last 3 Months Immunizations Name Administration Dates Next Due Hep B, Adol or Pedi Dosage 01/01/2016, 07/17/2015, 6 Hepatitis A Adult 08/24/2018 Influenza Virus Vaccine Quad .5 mL IM 6+ 08/24/2018 [place] Influenza Virus Vaccine Quad IM 3+ YRS 03/31/2016 Pneumococcal Polysaccharide, PPSV23 08/24/2018 (PNEUMOVAX) Tdap 08/24/2018 Family History Medical History Relation Name Comments Breast Cancer Paternal Aunt Breast Cancer Paternal Grandmother Relation Name Status Comments Paternal Aunt Paternal Grandmother Social History Tobacco Use Types Packs/Day Years Used Date Never Smoker Smokeless Tobacco: Never Used Tobacco Cessation: Counseling Given: No Alcohol Use Drinks/Week oz/Week Comments No 0 Standard drinks or equivalent 0.0 Sex Assigned at Date Recorded Not on file Job Start Date Occupation Industry Not on file Not on file Not on file Travel History Travel Start Travel End No recent travel history available. Last Filed Vital Signs Vital Sign Reading Time Taken Comments Blood Pressure 124/67 12/19/2018 11:12 AM CDT Pulse 91 12/19/2018 11:12 AM CDT Temperature 36.9 C (98.4 F) 12/01/2018 6:39 AM CDT Respiratory Rate 15 12/01/2018 7:40 AM CDT Oxygen Saturation 97% 12/01/2018 7:49 AM CDT Inhaled Oxygen Concentration - - Weight 108 kg (238 lb) 12/19/2018 11:12 AM CDT Height 172.7 cm (5' 8") 12/19/2018 11:12 AM CDT Body Mass Index 36.19 12/19/2018 11:12 AM CDT Plan of Treatment Date Type Specialty Care Team Description 02/22/2019 Office Visit Cardiology No Hearn M D [address] [place] [address] [place] [address] [phone] 03/01/2019 Office Visit Infectious Disease Tono Barrera MD [address] [place] [address] Health Maintenance Due Date Last Done Comments PAP SMEAR 11/26/2009 11/26/2006 COLONOSCOPY 2016 Zoster Recombinant Vaccine (SHINGRIX) (1 2016 of 2) MAMMOGRAM 04/13/2018 04/13/2017, 05/07/2011 INFLUENZA VACCINE (#1) 2019 08/24/2018, 03/31/2016 PNEUMOCOCCAL 0-64 YEARS COMBINED SERIES (2 08/25/201908/24 of 3 - PCV13) DTaP,Tdap,and Td Vaccines (2 - Td) 08/24/2028 08/24/2018 Procedures Procedure Name Priority Date/Time Associated Diagnosis Comme nts ECHO ROUTINE W/DOPPLER Routine 12/19/2018 11:09 Essential R esults for this COLOR AM CDT hypertension procedure are i n the results section. EKG-12 LEAD Routine 12/01/2018 6:42 AM CDT EKG-12 LEAD Routine 12/01/2018 6:38 AM CDT EMERGENCY SERVICES Routine 12/01/2018 12:01 AGREEMENTS AND AM CDT AUTHORIZATIONS SLEEP LAB RESULTS Routine 11/30/2018 12:01 AM CDT SLEEP STUDY DATA REPORT Routine 11/30/2018 12:01 AM CDT BASIC METABOLIC PANEL Routine 11/23/2018 11:19 Essential Re sults for this (NA, K, CL, CO2, AM CDT hypertension procedure a re in GLUCOSE, BUN, the results CREATININE, CA) section. NOTICE OF BILLING Routine 11/21/2018 4:18 PRACTICES FOR MEDICARE PM CDT PATIENTS [facility] PATIENT FINANCIAL Routine 11/21/2018 4:18 POLICY PM CDT NO SHOW OR MISSED Routine 11/21/2018 4:17 APPOINTMENT POLICY PM CDT ACKNOWLEDGEMENT from Last 3 Months Results ECHO ROUTINE W/DOPPLER COLOR Preferred Location: [facility] (12/19/2018 11:09 AM CDT) Specimen Performing Organization Address City/State/Zipcode Phone Number ECHO EKG-12 LEAD (12/01/2018 6:38 AM CDT) Specimen Performing Organization Address City/State/Zipcode Phone Number [facility] AGREEMENTS AND AUTHORIZATIONS (12/01/2018 12:01 AM CDT) Specimen Performing Organization Address City/State/Zipcode Phone Number [facility] SLEEP STUDY DATA REPORT (11/30/2018 12:01 AM CDT) Specimen Performing Organization Address City/State/Zipcode Phone Number [facility] SLEEP LAB RESULTS (11/30/2018 12:01 AM CDT) Specimen Performing Organization Address City/State/Zipcode Phone Number [facility] BASIC METABOLIC PANEL (NA, K, CL, CO2, GLUCOSE, BUN, CREATININE, CA) (11/23/2018 11:19 AM CDT) Pathologist Sig nature NA 143 135 - 145 mmol/L [facility] K 4.2 3.5 - 5.0 mmol/L [facility] CL 101 98 - 108 mmol/L [facility] CO2 TOTAL 30 23 - 31 mmol/L [facility] AGAP 12 2 - 16 [facility] BUN 9 7 - 23 mg/dL [facility] GLUCOSE 87 70 - 110 mg/dL [facility] CREATININE 0.80 0.50 - 1.04 [facility] mg/dL SERVICES CALCIUM 9.7 8.6 - 10.6 mg/dL [facility] eGFR Calculation 75.3 mL/min/1.73m2 [facility] (Non-) SERVICES eGFR Calculation 91.3 mL/min/1.73m2 [facility] () SERVICES Specimen Blood Narrative Performed At Association of Glomerular Filtration Rate (GFR) and St aging [facility] of Kidney Disease* + + +------- ------ + | GFR (mL/min/1.73 m2) | With Kidney Damage | Wi thout Kidney Damage + + +------- ------ + | >90 | Stage one | Normal + + +------- ------ + | 60-89 | Stage two | Decreased GFR + + +------- ------ + | 30-59 | Stage three | Stage three + + +------- ------ + | 15-29 | Stage four | Stage four + + +------- ------ + | <15 (or dialysis) | Stage five | Stage five + + +------- ------ + *Each stage assumes the associated GFR level has been in effect for at least three months. Stages 1 to 5, wit h or without kidney disease, indicate chronic kidney disease. Notes: Determination of stages one and two (with eGFR >59mL/min/1.73 m2) requires estimation of kidney damag e for at least three months as defined by structural or func tional abnormalities of the kidney, manifested by either: Pathological abnormalities or Markers of kidney damage (including abnormalities in the composition of the blo od or urine or abnormalities in imaging tests). Performing Organization Address City/State/Zipcode Phone Number [facility] CLIA: [id number], [address] [place], [place] [address] [facility] NOTICE OF BILLING PRACTICES FOR MEDICARE PATIENTS (11/21/2018 4:18 PM CDT) Specimen Performing Organization Address City/State/Zipcode Phone Number HIM [facility] PATIENT FINANCIAL POLICY (11/21/2018 4:18 PM CDT) Specimen Performing Organization Address City/State/Zipcode Phone Number HIM NO SHOW OR MISSED APPOINTMENT POLICY ACKNOWLEDGEMENT (11/21/2018 4:17 PM CDT) Specimen Performing Organization Address City/State/Zipcode Phone Number HIM from Last 3 Months Insurance Payer Benefit Plan / Subscriber ID Effective Dates Phone Addre ss Type Group MEDICARE MEDICARE PART xxxxxxxxxxx 2018-Darby [phone] [address] [place] [place] Medicare A & B t 2 [id number] [place] [id number] Advance Directives Type Date Recorded Patient Audio Narrator Explanati on Advance Directives and Living 01/14/2015 2:00 PM Will Power of Weather Strip Installer 08/08/2018 2:03 PM
--- OUTSIDE RECORDS SUMMARY | 2019-09-25 17:10 | XMS REPORT | Clinical Summary ---
:1965 Author Organization [facility] - [facility] Address [address] [place] [id number] Care Team Providers Name Role Phone Vianca [...] by mouth 3 Cervicalgia (three) times daily. losartan 50 mg Take 1 tablet 30 [...] mouth at (human immunodeficiency bedtime. virus infection) ynjeemmk-cckdpgrqendi-sk Take 1 tablet 30 tablet 5 11/23/2018 [...] immunodeficiency MORNING virus infection), Hypertension, unspecified type zolpidem 10 mg Take 1 tablet 30 tablet 2 03/15/2019 Active tabletIndications: by mouth at Primary insomnia bedtime as needed for Insomnia. LORazepam 2 mg Take 1 tablet 60 tablet 2 02/20/2019 Active tabletIndications: by mouth 2 Generalized anxiety (two) times disorder with panic daily as needed attacks (anxiety). traZODone 100 mg Take 2 tablets 60 tablet 2 02/20/2019 Active tabletIndications: by mouth at Primary insomnia bedtime. 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 Problems Problem Noted Date Resolved Date S/P total hysterectomy and bilateral salpingo-oophorectomy 0 05/27/2016 05/27/2016 Anemia 03/25/2016 05/27/2016 Thrombocytopenia 03/25/2016 05/27/2016 Weight loss 01/23/2015 05/27/2016 Diarrhea 01/23/2015 05/27/2016 Lymphadenopathy 01/23/2015 05/27/2016 Insomnia 06/27/2013 05/27/2016 Irregular menstrual cycle 12/17/2006 05/27/2016 Pleurisy 12/09/2005 05/27/2016 Overview: ICD10 Diagnosis 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 Utility Cervicitis and endocervicitis 12/09/2005 05/27/2016 Pain in limb 12/09/2005 05/27/2016 Encounters Date Type Specialty Care Team Description 02/20/2019 Orders Only Doctor Unassigned, [place] 02/13/2019 Refill Infectious Disease Aj Lee Refill Request 02/10/2019 Refill Infectious Disease Aj Lee Refill Request; Refill Request 02/08/2019 Telephone Infectious Disease Soren Castro RN (Psychiatry tra nsfer) 02/06/2019 Refill Infectious Aj Garland Refill Request MD 02/02/2019 Refill Infectious Disease Gilson Barreraill Request MD Vianca 01/09/2019 Telephone Infectious Disease Aj Lee Refill Request (zolpidem (AMBI EN CR) 12.5 mg CR tabl et) 12/30/2018 Refill Infectious Disease Aj Lee Refill Request (LORazepam 2 mg tablet) 12/22/2018 Telephone Infectious Disease Gilson Barrera Refill Request MD Vianca (HYDROcodone-ac etaminop hen (NORCO) 10- 325 mg tablet ( Please send to [facility] ) ) 12/19/2018 Laboratory Only Cardiology No Hearn, Essential hypertension [facility], [facility] Cardio Fac 1, Adc Cardio Fac Room 12/09/2018 Telephone Cardiology No Hearn, TEST RESULTS (Sleep MD Study) 12/08/2018 Telephone Infectious Disease Aj Lee, Rx Con cern/Question 12/01/2018 Emergency Emergency Medicine Gold Doll Anxie ty (Primary Dx) 11/30/2018 Chief Program Officer Visit Sleep Disorder Atanasov, Essential hypertension, Diagnostic Strahil T malignant 1, [facility] Sleep Lab Bed 11/29/2018 Case Management Infectious Disease Alessandro Walters (Miguel Patel, RN White Program Account Closure) 11/23/2018 Chief Program Officer Visit Phlebotomy Gilson Barrera Essential hypertension MD Vianca (Primary Dx) [facility] 11/23/2018 Office Visit Infectious Disease Gilson Barrera HIV (hu man immunodeficiency virus infection) (Primary Dx); MD Vianca Cervicalgia 11/23/2018 Case Management Infectious Disease Jesus, Follow -up (Referred for Charmaine Nicole LVN account closu re, obtained insura nce) 11/22/2018 Telephone Infectious Disease Jesus, Appointme nt (Reminder) Charmaine Nicole LVN 11/22/2018 Refill Pain Medicine Edelmira Ware Refrowena Nelson MD 11/21/2018 Office Visit Cardiology Dhiraj, No, Essential hyp ertension (Primary Dx); MD Mishra; Obesity (BMI 30 -39.9); Edema, unspecif ied type 11/21/2018 Orders Only Doctor Unassigned, [place] 11/21/2018 Telephone Pain Medicine Edelmira Ware MD 11/21/2018 Telephone Pain Medicine Edelmira Ware Talk To Prov eddie Crump MD from Last 3 Months Immunizations Name Administration [...] Sign Reading Time Taken Comments Blood Pressure 129/87 02/20/2019 2:48 PM CDT Pulse 98 02/20/2019 2:48 PM CDT Temperature 36.9 C (98.4 F) 12/01/2018 6:39 AM CDT Respiratory Rate 18 02/20/2019 2:48 PM CDT Oxygen Saturation 97% 12/01/2018 7:49 AM CDT Inhaled Oxygen Concentration - - Weight 110.5 kg (243 lb 8 oz) 02/20/2019 2:48 PM CDT Height 172.7 cm (5' 8") 02/20/2019 2:48 PM CDT Body Mass Index 37.02 02/20/2019 2:48 PM CDT Plan of Treatment Date Type Specialty Care Team Description 02/22/2019 Office Visit Cardiology No Hearn M D [address] [place] [address] [place] [address] [phone] 03/01/2019 Office Visit Infectious Disease Tono Barrera MD [address] [phone] Health Maintenance Due Date Last Done Comments PAP SMEAR 11/26/2009 11/26/2006 COLONOSCOPY 2016 Zoster Recombinant Vaccine (SHINGRIX) (1 2016 of 2) MAMMOGRAM 04/13/2018 04/13/2017, 05/07/2011 INFLUENZA VACCINE (#1) 2019 08/24/2018, 03/31/2016 PNEUMOCOCCAL 0-64 YEARS COMBINED SERIES (2 08/25/201908/24 of 3 - PCV13) DTaP,Tdap,and Td Vaccines (2 - Td) 08/24/2028 08/24/2018 Procedures Procedure Name Priority Date/Time Associated Diagnosis Comme nts NOTICE OF BILLING Routine 02/20/2019 2:44 PRACTICES FOR MEDICARE PM CDT PATIENTS [facility] PATIENT FINANCIAL Routine 02/20/2019 2:43 POLICY PM CDT NO SHOW OR MISSED Routine 02/20/2019 2:43 APPOINTMENT POLICY PM CDT ACKNOWLEDGEMENT ECHO ROUTINE W/DOPPLER Routine 12/19/2018 11:09 Essential [...] 4:18 PRACTICES FOR MEDICARE PM CDT PATIENTS [facility] PATIENT FINANCIAL Routine 11/21/2018 4:18 POLICY PM CDT NO SHOW OR MISSED Routine 11/21/2018 4:17 APPOINTMENT POLICY PM CDT ACKNOWLEDGEMENT from Last 3 Months Results NOTICE OF BILLING PRACTICES FOR MEDICARE PATIENTS (02/20/2019 2:44 PM CDT)Only the most recent of2 resultswithin the time period is included. Specimen Performing Organization Address City/State[facility] Phone Number [facility] PATIENT FINANCIAL POLICY (02/20/2019 2:43 PM CDT)Only the most recent of2 resultswithin the time period is included. Specimen Performing Organization Address [facility] Phone Number [facility] NO SHOW OR MISSED APPOINTMENT POLICY ACKNOWLEDGEMENT (02/20/2019 2:43 PM CDT) Only the most recent of2 resultswithin the time period is included. Specimen Performing Organization Address [facility] Phone Number [facility] ECHO ROUTINE W/DOPPLER COLOR Preferred Location: [facility] (12/19/2018 11:09 AM CDT) Specimen Performing Organization Address [facility] Phone Number ECHO EKG-12 LEAD (12/01/2018 6:38 AM CDT) Specimen Performing Organization Address [facility] Phone Number [facility] AGREEMENTS AND AUTHORIZATIONS (12/01/2018 12:01 AM CDT) Specimen Performing Organization Address City/State/Zipcode Phone Number [facility] SLEEP STUDY DATA REPORT (11/30/2018 12:01 AM CDT) Specimen Performing Organization Address [facility]/State/[facility] Phone Number [facility] SLEEP LAB RESULTS (11/30/2018 12:01 AM CDT) Specimen Performing Organization Address [facility] Phone Number [facility] BASIC METABOLIC PANEL (NA, K, CL, CO2, GLUCOSE, BUN, CREATININE, CA) (11/23/2018 11:19 AM CDT) Pathologist Sig nature NA 143 135 - 145 mmol/L [facility] K 4.2 3.5 - 5.0 mmol/L [facility] CL 101 98 - 108 mmol/L [facility] CO2 TOTAL 30 23 - 31 mmol/L [facility] AGAP 12 2 - 16 [facility] BUN 9 7 - 23 mg/dL [facility] GLUCOSE 87 70 - 110 mg/dL [facility] CREATININE 0.80 0.50 - 1.04 [facility] mg/dL SERVICES CALCIUM 9.7 8.6 - 10.6 mg/dL [facility] eGFR Calculation 75.3 mL/min/1.73m2 [facility] (Non-) SERVICES eGFR Calculation 91.3 mL/min/1.73m2 [facility] () SERVICES Specimen Blood Narrative Performed At Association of Glomerular Filtration Rate (GFR) and St aging [facility] of Kidney Disease* + + +------- ------ + | GFR (mL/min/1.73 m2) | With Kidney Damage | Wi out Kidney Damage + + +------- ------ + [...] tests). Performing Organization Address City/State/Zipcode Phone Number [facility] CLIA: [id number], [address] [place], [place] [address] [facility] from Last 3 Months Insurance Payer Benefit Plan / Subscriber ID Effective Dates Phone Addre ss Type Group MEDICARE MEDICARE PART xxxxxxxxxxx 2018-Darby [phone] [facility] Medicare A & B t 2 [id number] ARELIS SANCHEZ [id number] Advance Directives Type Date Recorded Patient Peg Driver Explanati on Advance Directives and Living 01/14/2015 2:00 PM Will Power of Treatment Plant Operator 08/08/2018 2:03 PM
--- OUTSIDE RECORDS SUMMARY | 2019-09-25 17:10 | XMS REPORT | Clinical Summary ---
:1965 Author Organization [facility] - [facility] Address [address] [place] [address] Care Team Providers Name Role Phone Vianca [...] Cervicalgia po BIDx3d, 1 QD x 3d. amitriptyline 75 mg Take 1 tablet 30 tablet 5 11/23/2018 Active tabletIndications: HIV by mouth at (human immunodeficiency bedtime. virus infection) IBUPROFEN 800 mg tablet TAKE ONE TABLET 90 tablet 0 03/13/2019 Active BY MOUTH THREE TIMES A DAY WITH MEALS AMLODIPINE 10 mg TAKE ONE TABLET 30 tablet 3 03/20/2019 Active tabletIndications: HIV BY MOUTH EVERY (human immunodeficiency MORNING virus infection), Hypertension, unspecified type TRIUMEQ 600-50-300 mg TAKE ONE TABLET 30 tablet 4 05/03/2019 Active per tabletIndications: BY MOUTH EVERY HIV (human MORNING immunodeficiency virus infection) pantoprazole 40 mg EC TAKE ONE TABLET 60 tablet 3 05/03/2019 Active tabletIndications: HIV BY MOUTH TWICE (human immunodeficiency A DAY virus infection) zolpidem 10 mg Take 1 tablet 30 tablet 2 06/07/2019 Active tabletIndications: by mouth at Primary insomnia bedtime as needed for Insomnia. traZODone 100 mg Take 2 tablets 60 tablet 2 05/22/2019 Active tabletIndications: by mouth at Primary insomnia bedtime. LORazepam 2 mg Take 1 tablet 60 tablet 2 05/22/2019 Active tabletIndications: by mouth 2 Generalized anxiety (two) times disorder with panic daily as needed attacks (anxiety). escitalopram oxalate 5 Take 1 tablet 30 tablet 2 05/22/2019 Active mg tabletIndications: by mouth daily. Generalized anxiety disorder with panic attacks, Current moderate episode of major depressive disorder, unspecified whether recurrent mirtazapine 15 mg Take 1 tablet 30 tablet 2 05/22/2019 Active tabletIndications: by mouth at Primary insomnia, bedtime. Generalized anxiety disorder with panic attacks, Current moderate episode of major depressive disorder, unspecified whether recurrent Active Problems Problem Noted Date Tendonitis of [...] with hydrocephalus 06/09/2006 Overview: ICD10 Diagnosis Term Lsat Instructor Utility Resolved Problems Problem Noted Date Resolved Date S/P total hysterectomy and bilateral salpingo-oophorectomy 0 05/27/2016 05/27/2016 Anemia 03/25/2016 05/27/2016 Thrombocytopenia 03/25/2016 05/27/2016 Weight loss 01/23/2015 05/27/2016 Diarrhea 01/23/2015 05/27/2016 Lymphadenopathy 01/23/2015 05/27/2016 Insomnia 06/27/2013 05/27/2016 Irregular menstrual cycle 12/17/2006 05/27/2016 Pleurisy 12/09/2005 05/27/2016 Overview: ICD10 Diagnosis Term Lsat Instructor Utility Cervicitis and endocervicitis 12/09/2005 05/27/2016 Pain in limb 12/09/2005 05/27/2016 Encounters Date Type Specialty Care Team Description 05/22/2019 Orders Only Doctor Unassigned, [place] 04/25/2019 Refill Infectious Gilson Guardado Refill Request MD Vianca 04/17/2019 Orders Only Doctor Unassigned, [place] 03/10/2019 Refill Gilson Sharp Refill Request MD Vianca 03/07/2019 Refill Infectious Gilson Guardado Refill Request MD Vianca 03/02/2019 Telephone Infectious Gilson Guardado DME (Wr iste Brace) MD Vianca 03/01/2019 Fireworks Display Specialist Visit Phlebotomy Gilson Barrera Symptomat ic HIV MD Vianca infection [facility] 03/01/2019 Office Visit Infectious Disease Gilson Barrera Symptom atic HIV infection (Primary Dx); MD Vianca Depression, uns pecified depression type; Chronic pain of left knee 02/23/2019 Telephone Cardiology No Hearn, Results 02/22/2019 Fireworks Display Specialist Visit Clinical Medical No Hearn, Hyper tension, Laboratory unspecified type 1, Adc Lab 02/22/2019 Office Visit Cardiology No Hearn, Hypertension, unspecified type (Primary Dx); Leg edema; Obesity (BMI 30 -39.9) 02/20/2019 Orders Only Doctor Unassigned, [place] from Last 3 Months Immunizations Name Administration [...] Sign Reading Time Taken Comments Blood Pressure 141/98 05/22/2019 2:05 PM HIDE MEASURING MACHINE OPERATOR Pulse 92 05/22/2019 2:05 PM HIDE MEASURING MACHINE OPERATOR Temperature 36.3 C (97.4 F) 03/01/2019 10:28 AM CDT Respiratory Rate 18 05/22/2019 2:01 PM HIDE MEASURING MACHINE OPERATOR Oxygen Saturation 100% 02/22/2019 11:30 AM CDT Inhaled Oxygen Concentration - - Weight 108.2 kg (238 lb 8 oz) 05/22/2019 2:01 PM HIDE MEASURING MACHINE OPERATOR Height 171.5 cm (5' 7.5") 05/22/2019 2:01 PM HIDE MEASURING MACHINE OPERATOR Body Mass Index 36.8 05/22/2019 2:01 PM HIDE MEASURING MACHINE OPERATOR Plan of Treatment Date Type Specialty Care Team Description 06/07/2019 Office Visit Infectious Disease Tono Barrera MD [address] [place] [phone] 08/28/2019 Office Visit Cardiology No Hearn M D [address] [place] [address] 15 [phone] Health Maintenance Due Date Last Done Comments PAP SMEAR 11/26/2009 11/26/2006 COLONOSCOPY 2016 Zoster Recombinant Vaccine (SHINGRIX) (1 2016 of 2) Breast Cancer Screening (MAMMOGRAM) 04/13/2018 04/13/2017, 05/07/2011 INFLUENZA VACCINE (#1) 2019 08/24/2018, 03/31/2016 PNEUMOCOCCAL 0-64 YEARS COMBINED SERIES (2 08/25/201908/24 of 3 - PCV13) DTaP,Tdap,and Td Vaccines (2 - Td) 08/24/2028 08/24/2018 Procedures Procedure Name Priority Date/Time Associated Comments Diagnosis CONSENT TO CONTACT FOR Routine 05/22/2019 2:19 R esults for this VOLUNTARY RESEARCH PM HIDE MEASURING MACHINE OPERATOR procedure are in the results section. CONSENT/REFUSAL FOR Routine 05/22/2019 1:50 DIAGNOSIS AND TREATMENT PM HIDE MEASURING MACHINE OPERATOR ASSIGNMENT OF BENEFITS Routine 05/22/2019 1:50 PM HIDE MEASURING MACHINE OPERATOR MEDICATION Routine 04/17/2019 12:01 CORRESPONDENCE AM HIDE MEASURING MACHINE OPERATOR CBC WITH DIFFERENTIAL Routine 03/01/2019 11:21 Symptomatic HIV Results for this AM CDT infection procedure are i n the results section. HEPATIC FUNCTION PANEL Routine 03/01/2019 11:21 Symptomatic HI V Results for this (54844) (ALB,T.PRO,BILI AM CDT infection proc edure are in T,BU/BC,ALT,AST,ALK the resu lts PHOS) section. HIV1 BY REAL-TIME PCR Routine 03/01/2019 11:21 Symptomatic HIV Results for this QUANT AM CDT infection procedure are i n the results section. CD4/CD8 SUBSET ASSAY Routine 03/01/2019 11:21 Symptomatic HIV Results for this AM CDT infection procedure are i n the results section. CBC WITH DIFFERENTIAL Routine 03/01/2019 11:21 Symptomatic HIV Results for this AM CDT infection procedure are i n the results section. BASIC METABOLIC PANEL Routine 02/22/2019 12:13 Hypertension, R esults for this (NA, K, CL, CO2, PM CDT unspecified type procedu re are in GLUCOSE, BUN, the results CREATININE, CA) section. NOTICE OF PRIVACY Routine 02/22/2019 12:04 PRACTICES PM CDT CONSENT/REFUSAL FOR Routine 02/22/2019 12:03 DIAGNOSIS AND TREATMENT PM CDT ASSIGNMENT OF BENEFITS Routine 02/22/2019 12:03 PM CDT NOTICE OF BILLING Routine 02/20/2019 2:44 PRACTICES FOR MEDICARE PM CDT PATIENTS [facility] PATIENT FINANCIAL Routine 02/20/2019 2:43 POLICY PM CDT NO SHOW OR MISSED Routine 02/20/2019 2:43 APPOINTMENT POLICY PM CDT ACKNOWLEDGEMENT from Last 3 Months Results CONSENT TO CONTACT FOR VOLUNTARY RESEARCH (05/22/2019 2:19 PM HIDE MEASURING MACHINE OPERATOR) Pathologist Sig nature Consent To Contact For Voluntary Yes HIM Research Specimen Performing Organization Address City/State/Zipcode Phone Number [facility] CONSENT/REFUSAL FOR DIAGNOSIS AND TREATMENT (05/22/2019 1:50 PM HIDE MEASURING MACHINE OPERATOR)Only the most recent of2 resultswithin the time period is included. Specimen Performing Organization Address City/[facility]/Zipcode Phone Number [facility] ASSIGNMENT OF BENEFITS (05/22/2019 1:50 PM HIDE MEASURING MACHINE OPERATOR)Only the most recent of2 results within the time period is included. Specimen Performing Organization Address City/[facility]/Zipcode Phone Number [facility] MEDICATION CORRESPONDENCE (04/17/2019 12:01 AM HIDE MEASURING MACHINE OPERATOR) Specimen Performing Organization Address City/[facility]/Zipcode Phone Number [facility] CBC WITH DIFFERENTIAL (03/01/2019 11:21 AM CDT) Pathologist Sig nature WBC 5.70 4.30 - 11.10 [facility] 10*3/L SERVICES RBC 4.37 3.93 - 5.25 [facility] 10*6/L SERVICES HGB 13.6 11.6 - 15.0 [facility] g/dL SERVICES HCT 40.1 35.7 - 45.2 % [facility] SERVICES MCV 91.8 80.6 - 95.5 fL [facility] SERVICES MCH 31.1 25.9 - 32.8 pg [facility] SERVICES MCHC 33.9 31.6 - 35.1 [facility] g/dL SERVICES RDW-SD 46.9 39.0 - 49.9 fL [facility] SERVICES RDW-CV 13.8 12.0 - 15.5 % [facility] SERVICES PLT 418 (H) 166 - 358 [facility] 10*3/L SERVICES MPV 10.3 9.5 - 12.9 fL [facility] SERVICES NRBC/100 WBC 0.0 0.0 - 10.0 /100 [facility] WBCs SERVICES NRBC x10^3 <0.01 10*3/L [facility] SERVICES GRAN MAT (NEUT) % 28.9 % [facility] SERVICES IMM GRAN % 0.20 % [facility] SERVICES LYMPH % 59.6 % [facility] SERVICES MONO % 9.6 % [facility] SERVICES EOS % 1.2 % [facility] SERVICES BASO % 0.5 % [facility] SERVICES GRAN MAT x10^3(ANC) 1.64 (L) 1.88 - 7.09 [facility] 10*3/uL SERVICES IMM GRAN x10^3 <0.03 0.00 - 0.06 [facility] 10*3/uL SERVICES LYMPH x10^3 3.40 (H) 1.32 - 3.29 [facility] 10*3/uL SERVICES MONO x10^3 0.55 0.33 - 0.92 [facility] 10*3/uL SERVICES EOS x10^3 0.07 0.03 - 0.39 [facility] 10*3/uL SERVICES BASO x10^3 0.03 0.01 - 0.07 [facility] 10*3/uL SERVICES LG GRAN LYMPHS Rare Rare [facility] SERVICES Specimen Blood Performing Organization Address City/[facility] Hospitalcode Phone Number [facility] CLIA: [id number], [address] [place] [address] [facility] HIV1 BY REAL-TIME PCR QUANT (03/01/2019 11:21 AM CDT) HIV 1 by Real-Time Not Detected Not Detected [facility] PCR SERVICES Specimen Blood Narrative Performed At HIV-1 Real-Time PCR [facility] Interpretative data: [employer] m2000 Real Time HIV-1 reverse manager investigations-polymerase chain reaction (RT-PCR) assay is used. It is FDA approved for plasma samples to measure HIV-1 RNA for use as an aid in the management of HIV-1 infec yoan individuals. The FDA approved dynamic range of this te st is 40 to 10,000,000 copies/mL (1.60-7.00 Log copies/mL). Assay results are reported in copies/mL; 1 copy = 1.74 IU (International Units). Sample input volu me is 0.6 mL. Result Interpretation: Not Detected: Target not detected (not the same as negative); <40 copies/mL: Detected (but not quantif iable); 40-10,000,000 copies/mL >10,000,000 copies/mL; > upper limit of quantification. Performing Organization Address City/[facility] Hospitalcode Phone Number [facility] CLIA: [id number], [address] [place] [address] 555 [facility] CD4/CD8 SUBSET ASSAY (03/01/2019 11:21 AM CDT) Pathologist Sig nature CD4 % 28 (L) 31 - 60 % [facility] CD4 Absolute 925 410-1,590 [facility] Cells/L SERVICES CD8 % 43 (H) 13 - 41 % [facility] CD8 ABS# 1,449 (H) 190-1,140 [facility] Cells/L SERVICES CD4/CD8 Ratio 0.6 (L) 0.8 - 4.2 Ratio [facility] SERVICES Specimen Blood Performing Organization Address City/[facility]/Zipcode Phone Number [facility] CLIA: [id number], [address] [place] [address] 555 [facility] HEPATIC FUNCTION PANEL ([id number]) (ALB,T.PRO,BILI T,BU/BC,ALT,AST,ALK PHOS) (03/01/2019 11:21 AM CDT) Pathologist Sig nature TOTAL BILI 0.3 0.1 - 1.1 mg/dL [facility] BILI UNCON 0.0 (L) 0.1 - 1.1 mg/dL [facility] BILI CONJ 0.0 0.0 - 0.3 mg/dL [facility] T PROTEIN 9.0 (H) 6.3 - 8.2 g/dL [facility] ALBUMIN 4.5 3.5 - 5.0 g/dL [facility] ALK PHOS 90 34 - 122 U/L [facility] ALT(SGPT) 17 9 - 51 U/L [facility] AST(SGOT) 22 13 - 40 U/L [facility] Specimen Blood Performing Organization Address City/[facility]/Zipcode Phone Number [facility] CLIA: [id number], [address] [place] [address] 555 [facility] BASIC METABOLIC PANEL (NA, K, CL, CO2, GLUCOSE, BUN, CREATININE, CA) (02/22/2019 12:13 PM CDT) Pathologist Sig nature NA 142 135 - 145 mmol/L [facility] K 4.2 3.5 - 5.0 mmol/L [facility] CL 105 98 - 108 mmol/L [facility] CO2 TOTAL 26 23 - 31 mmol/L [facility] AGAP 11 2 - 16 [facility] BUN 9 7 - 23 mg/dL [facility] GLUCOSE 83 70 - 110 mg/dL [facility] CREATININE 0.93 0.50 - 1.04 [facility] mg/dL [facility] CALCIUM 9.8 8.6 - 10.6 mg/dL [facility] eGFR Calculation 63.3 mL/min/1.73m2 [facility] (Non-) [facility] LABORATOR Y eGFR Calculation 76.7 mL/min/1.73m2 [facility] () [facility] Specimen Blood Narrative Performed At [facility] Glomerular Filtration Rate (GFR) [facility] and Staging of Kidney Disease* + + +- + | GFR (mL/min/1.73 m2) | With Kidney Damage | Without Kidney Damage + + +- + | >90 | Stage one | Normal + + +- + | 60-89 | Stage two | Decreased GFR + + +- + | 30-59 | Stage three | Stage three + + +- + | 15-29 | Stage four | Stage four + + +- + | <15 (or dialysis) | Stage five | Stage five + + +- + *Each stage assumes the associated GFR level has been in effect for at least three months. Stages 1 to 5, with or without kidney disease, indicate chronic kidney disease. Notes: Determination of stages one and two (with eGFR >59mL/min/1.73 m2) requires estimation of kidney damage for at least three months as defined by structural or functional abnormalities of the kidney, manifested by either: Pathological abnormalities or Markers of kidney damage (including abnormalities in the composition of the blood or urine or abnormalities in imaging tests). Performing Organization Address City/State/Zipcode Phone Number [facility] CLIA: [id number], [address] [place], [place] [address] NOTICE OF PRIVACY PRACTICES (02/22/2019 12:04 PM CDT) Specimen Performing Organization Address City/State/Zipcode Phone Number [facility] NOTICE OF BILLING PRACTICES FOR MEDICARE PATIENTS (02/20/2019 2:44 PM CDT) Specimen Performing Organization Address City/State/Zipcode Phone Number [facility] PATIENT FINANCIAL POLICY (02/20/2019 2:43 PM CDT) Specimen Performing Organization Address City/State/Zipcode Phone Number HIM NO SHOW OR MISSED APPOINTMENT POLICY ACKNOWLEDGEMENT (02/20/2019 2:43 PM CDT) Specimen Performing Organization Address City/State/Zipcode Phone Number HIM from Last 3 Months Insurance Payer Benefit Plan / Subscriber ID Effective Dates Phone Addre ss Type Group MEDICARE MEDICARE PART xxxxxxxxxxx 2018-Darby [phone] Medicare A & B t 2 [id number] ARELIS SANCHEZ [id number] Advance Directives Type Date Recorded Patient Infant Room Teacher Explanati on Advance Directives and Living 01/14/2015 2:00 PM Will Power of Milieu Coordinator 08/08/2018 2:03 PM
--- OUTSIDE RECORDS SUMMARY | 2019-09-25 17:10 | XMS REPORT | Clinical Summary ---
:1965 Author Organization [facility] - [facility] Address [address] [place] [address] Care Team Providers Name Role Phone Vianca [...] mouth at (human immunodeficiency bedtime. 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 Spina bifida with hydrocephalus 06/09/2006 Overview: ICD10 Diagnosis Term Director Of Home Health Services Utility Resolved Problems Problem Noted Date Resolved Date S/P total hysterectomy and bilateral salpingo-oophorectomy 0 05/27/2016 05/27/2016 Anemia 03/25/2016 05/27/2016 Thrombocytopenia 03/25/2016 05/27/2016 Weight loss 01/23/2015 05/27/2016 Diarrhea 01/23/2015 05/27/2016 Lymphadenopathy 01/23/2015 05/27/2016 Insomnia 06/27/2013 05/27/2016 Irregular menstrual cycle 12/17/2006 05/27/2016 Pleurisy 12/09/2005 05/27/2016 Overview: ICD10 Diagnosis Term Director Of Home Health Services Utility Cervicitis and endocervicitis 12/09/2005 05/27/2016 Pain in limb 12/09/2005 05/27/2016 Encounters Date Type Specialty Care Team Description 02/20/2019 Orders Only Doctor Unassigned, [place] 02/13/2019 Refill Infectious Disease Aj Lee Refill [...] 325 mg tablet ( Please send to [facility] ) ) 12/19/2018 Laboratory Only Cardiology No Hearn, Essential hypertension [facility], [facility] Cardio Fac 1, Adc Cardio Fac Room 12/09/2018 Telephone Cardiology No Hearn, TEST RESULTS (Sleep MD Study) 12/08/2018 Telephone Infectious Disease Aj Lee, Rx Con cern/Question 12/01/2018 Emergency Emergency Medicine Gold Doll Anxie ty (Primary Dx) 11/30/2018 Plastic Manager Visit Sleep Disorder Atanasov, Essential hypertension, Diagnostic Strahil T malignant 1, [facility] Sleep Lab Bed 11/29/2018 Case Management Infectious Disease Alessandro Walters (Miguel Patel, RN White Program Account Closure) 11/23/2018 Plastic Manager Visit Phlebotomy Gilson Barrera Essential hypertension MD Vianca (Primary Dx) [facility] 11/23/2018 Office Visit Infectious [...] ied type 11/21/2018 Orders Only Doctor Unassigned, [place] 11/21/2018 Telephone Pain Medicine Edelmira Ware MD [...] Office Visit Cardiology No Hearn M D [address] [place] [address] [place] [phone] 03/01/2019 Office Visit Infectious Disease Tono Barrera MD [address] [place] [place] [phone] Health Maintenance Due Date Last Done [...] 2:44 PRACTICES FOR MEDICARE PM CDT PATIENTS [facility] PATIENT FINANCIAL Routine 02/20/2019 [...] 4:18 PRACTICES FOR MEDICARE PM CDT PATIENTS [facility] PATIENT FINANCIAL Routine 11/21/2018 4:18 POLICY PM CDT NO SHOW OR MISSED Routine 11/21/2018 4:17 APPOINTMENT POLICY PM CDT ACKNOWLEDGEMENT from Last 3 Months Results NOTICE OF BILLING PRACTICES FOR MEDICARE PATIENTS (02/20/2019 2:44 PM CDT)Only the most recent of2 resultswithin the time period is included. Specimen Performing Organization Address City/State/[facility] Cent[facility]ode Phone Number [facility] PATIENT FINANCIAL POLICY (02/20/2019 2:43 PM CDT)Only the most recent of2 resultswithin the time period is included. Specimen Performing Organization Address [facility] Cent[facility] Phone Number [facility] NO SHOW OR MISSED APPOINTMENT POLICY ACKNOWLEDGEMENT (02/20/2019 2:43 PM CDT) Only the most recent of2 resultswithin the time period is included. Specimen Performing Organization Address [facility] Cent[facility] Phone Number [facility] ECHO ROUTINE W/DOPPLER COLOR Preferred Location: [place] [facility] (12/19/2018 11:09 AM CDT) Specimen Performing Organization Address [facility] Cent[facility] Phone Number ECHO [id number] LEAD (12/01/2018 6:38 AM CDT) Specimen Performing Organization Address [facility] Phone Number [facility] AGREEMENTS AND AUTHORIZATIONS (12/01/2018 12:01 AM CDT) Specimen Performing Organization Address City/State/Zipcode Phone Number [facility] SLEEP STUDY DATA REPORT (11/30/2018 12:01 AM CDT) Specimen Performing Organization Address [facility]/State/[facility] Cent[facility]ode Phone Number [facility] SLEEP LAB RESULTS (11/30/2018 12:01 AM CDT) Specimen Performing Organization Address [facility] Cent[facility]ode Phone Number [facility] BASIC METABOLIC PANEL (NA, K, CL, CO2, GLUCOSE, BUN, CREATININE, CA) (11/23/2018 11:19 AM CDT) Pathologist Sig nature NA 143 135 - 145 mmol/L [facility] K 4.2 3.5 - 5.0 mmol/L [facility] CL 101 98 - 108 mmol/L [facility] CO2 TOTAL 30 23 - 31 mmol/L [facility] AGAP 12 2 - 16 [facility] BUN 9 7 - 23 mg/dL [facility] GLUCOSE 87 70 - 110 mg/dL [facility] SERVICES CREATININE 0.80 0.50 - 1.04 [facility] mg/dL SERVICES CALCIUM 9.7 8.6 - 10.6 mg/dL [facility] SERVICES eGFR Calculation 75.3 mL/min/1.73m2 [facility] (Non-) SERVICES eGFR Calculation 91.3 mL/min/1.73m2 [facility] () SERVICES Specimen Blood Narrative Performed At Association of Glomerular Filtration Rate (GFR) and St aging [facility] of Kidney Disease* + + [...] tests). Performing Organization Address City/State/Zipcode Phone Number [facility] CLIA: [id number], [address] [place], [place] [address] [facility] from Last 3 Months Insurance Payer Benefit Plan / Subscriber ID Effective Dates Phone Addre ss Type Group MEDICARE MEDICARE PART xxxxxxxxxxx 2018-Darby [phone] [address] [facility] Medicare A & B t 2 [id number] ARELIS SANCHEZ [id number] Advance Directives Type Date Recorded Patient Special Projects Manager Explanati on Advance Directives and Living 01/14/2015 2:00 PM Will Power of Biochemistry Technologist 08/08/2018 2:03 PM
--- OUTSIDE RECORDS SUMMARY | 2019-09-25 17:11 | XMS REPORT | Clinical Summary ---
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 Spina bifida with hydrocephalus 06/09/2006 Overview: ICD10 Diagnosis Term Script Developer Utility Resolved Problems Problem Noted Date Resolved Date S/P total hysterectomy and bilateral salpingo-oophorectomy 0 05/27/2016 05/27/2016 Anemia 03/25/2016 05/27/2016 Thrombocytopenia 03/25/2016 05/27/2016 Weight loss 01/23/2015 05/27/2016 Diarrhea 01/23/2015 05/27/2016 Lymphadenopathy 01/23/2015 05/27/2016 Insomnia 06/27/2013 05/27/2016 Irregular menstrual cycle 12/17/2006 05/27/2016 Pleurisy 12/09/2005 05/27/2016 Overview: ICD10 Diagnosis Term Script Developer Utility Cervicitis and endocervicitis 12/09/2005 05/27/2016 Pain in limb 12/09/2005 05/27/2016 Encounters Date Type Specialty Care Team Description 05/22/2019 Orders Only Doctor Unassigned, [place] 04/25/2019 Refill Infectious Gilson Guardado Refill Request MD Vianca 04/17/2019 Orders Only Doctor Unassigned, [place] 03/10/2019 Refill Gilson Sharp Refill Request MD Vianca 03/07/2019 Refill Infectious Gilson Guardado Refill Request MD Vianca 03/02/2019 Telephone Infectious Gilson Guardado DME ([employer]) MD Vianca 03/01/2019 [employer] Visit Phlebotomy Gilson Barrera Symptomat ic HIV MD Vianca infection [facility] 03/01/2019 Office Visit Infectious Disease Gilson Barrera Symptom atic HIV infection (Primary Dx); MD Vianca Depression, uns pecified depression type; Chronic pain of left knee 02/23/2019 Telephone Cardiology No Hearn, Results 02/22/2019 [employer] Visit Clinical Medical No [place]n, Hyper tension, Laboratory unspecified type 1, [facility] 02/22/2019 Office Visit Cardiology No [place]n, Hypertension, unspecified type (Primary Dx); Leg edema; Obesity (BMI 30 -39.9) 02/20/2019 Orders Only Doctor Unassigned, [place] from Last 3 Months Immunizations Name Administration [...] Comments Blood Pressure 141/98 05/22/2019 2:05 PM FUND MANAGER Pulse 92 05/22/2019 2:05 PM FUND MANAGER Temperature 36.3 C (97.4 F) 03/01/2019 10:28 AM CDT Respiratory Rate 18 05/22/2019 2:01 PM FUND MANAGER Oxygen Saturation 100% 02/22/2019 11:30 AM CDT Inhaled Oxygen Concentration - - Weight 108.2 kg (238 lb 8 oz) 05/22/2019 2:01 PM FUND MANAGER Height 171.5 cm (5' 7.5") 05/22/2019 2:01 PM FUND MANAGER Body Mass Index 36.8 05/22/2019 2:01 PM FUND MANAGER Plan of Treatment Date Type Specialty Care Team Description 06/07/2019 Office Visit Infectious Disease Tono Barrera MD [address] [place] [phone] 08/28/2019 Office Visit Cardiology No Hearn M D [address] [place], [place] [id number] 15 [phone] Health Maintenance Due Date Last Done Comments [...] R esults for this VOLUNTARY RESEARCH PM FUND MANAGER procedure are in the results section. CONSENT/REFUSAL FOR Routine 05/22/2019 1:50 DIAGNOSIS AND TREATMENT PM FUND MANAGER ASSIGNMENT OF BENEFITS Routine 05/22/2019 1:50 PM FUND MANAGER MEDICATION Routine 04/17/2019 12:01 CORRESPONDENCE AM FUND MANAGER CBC WITH DIFFERENTIAL Routine 03/01/2019 11:21 Symptomatic HIV Results for this AM CDT infection procedure are i n the results section. HEPATIC FUNCTION PANEL Routine 03/01/2019 11:21 Symptomatic HI V Results for this (98526) (ALB,T.PRO,BILI AM CDT infection proc edure are [...] PRACTICES FOR MEDICARE PM CDT PATIENTS [facility] PATIENT FINANCIAL Routine 02/20/2019 2:43 POLICY PM CDT NO SHOW OR MISSED Routine 02/20/2019 2:43 APPOINTMENT POLICY PM CDT ACKNOWLEDGEMENT from Last 3 Months Results CONSENT TO CONTACT FOR VOLUNTARY RESEARCH (05/22/2019 2:19 PM FUND MANAGER) Pathologist Sig nature Consent To Contact For Voluntary Yes HIM Research Specimen Performing Organization Address City/State/Zipcode Phone Number [facility] CONSENT/REFUSAL FOR DIAGNOSIS AND TREATMENT (05/22/2019 1:50 PM FUND MANAGER)Only the most recent of2 resultswithin the time period is included. Specimen Performing Organization Address City/[facility]/Zipcode Phone Number [facility] ASSIGNMENT OF BENEFITS (05/22/2019 1:50 PM FUND MANAGER)Only the most recent of2 results within the time period is included. Specimen Performing Organization Address City/[facility]/Zipcode Phone Number [facility] MEDICATION CORRESPONDENCE (04/17/2019 12:01 AM FUND MANAGER) Specimen Performing Organization Address City/[facility]/Zipcode Phone Number [facility] CBC WITH DIFFERENTIAL (03/01/2019 11:21 AM CDT) [...] LYMPH x10^3 3.40 (H) 1.32 - 3.29 [facility] 10*3/uL SERVICES MONO x10^3 0.55 0.33 - 0.92 [facility] 10*3/uL SERVICES EOS x10^3 0.07 0.03 - 0.39 [facility] 10*3/uL SERVICES BASO x10^3 0.03 0.01 - 0.07 [facility] 10*3/uL SERVICES LG GRAN LYMPHS Rare Rare [facility] SERVICES Specimen Blood Performing Organization Address City/[facility] Phone Number [facility] CLIA: [id number], [address] [place] [address] [facility] HIV1 BY REAL-TIME PCR QUANT (03/01/2019 11:21 AM CDT) HIV 1 by Real-Time Not Detected Not Detected [facility]ORATORY PCR SERVICES Specimen Blood Narrative Performed At HIV-1 Real-Time PCR [facility] Interpretative data: [employer]ist m2000 Real Time HIV-1 reverse section leader screen printing-polymerase chain reaction (RT-PCR) assay is used. It [...] upper limit of quantification. Performing Organization Address City/[facility] Phone Number [facility] CLIA: [id number], [address] [place] [phone] [facility] CD4/CD8 SUBSET ASSAY (03/01/2019 11:21 AM CDT) Pathologist Sig nature CD4 % 28 (L) 31 - 60 % [facility] CD4 Absolute 925 410-1,590 [facility] LAB[facility]ORY Cells/L SERVICES CD8 % 43 (H) 13 - 41 % [facility] CD8 ABS# 1,449 (H) 190-1,140 [facility] LABOR[facility]ORY Cells/L SERVICES CD4/CD8 Ratio 0.6 (L) 0.8 - 4.2 Ratio [facility] SERVICES Specimen Blood Performing Organization Address City/[facility]/Zipcode Phone Number [facility] CLIA: [id number], [address] [place] [phone] [facility] HEPATIC FUNCTION PANEL ([id number]) (ALB,T.PRO,BILI T,BU/BC,ALT,AST,ALK PHOS) (03/01/2019 11:21 AM CDT) Pathologist Sig nature TOTAL BILI 0.3 0.1 - 1.1 mg/dL [facility] BILI UNCON 0.0 (L) 0.1 - 1.1 mg/dL [facility] BILI CONJ 0.0 0.0 - 0.3 mg/dL [facility] T PROTEIN 9.0 (H) 6.3 - 8.2 g/dL [facility] ALBUMIN 4.5 3.5 - 5.0 g/dL [facility] ALK PHOS 90 34 - 122 U/L [facility] ALT(SGPT) 17 9 - 51 U/L [facility] AST(SGOT) 22 13 - 40 U/L [facility] Specimen Blood Performing Organization Address City/[facility]/Zipcode Phone Number [facility] CLIA: [id number], [address] [place] [phone] [facility] BASIC METABOLIC PANEL (NA, K, CL, CO2, GLUCOSE, BUN, CREATININE, CA) (02/22/2019 12:13 PM CDT) Pathologist Sig nature NA 142 135 - 145 mmol/L [facility] K 4.2 3.5 - 5.0 mmol/L [facility] CL 105 98 - 108 mmol/L [facility] CO2 TOTAL 26 23 - 31 mmol/L [facility] AGAP 11 2 - 16 [facility] BUN 9 7 - 23 mg/dL [facility] GLUCOSE 83 70 - 110 mg/dL [facility] CREATININE 0.93 0.50 - 1.04 [facility] mg/dL [facility] CALCIUM 9.8 8.6 - 10.6 mg/dL [facility] eGFR Calculation 63.3 mL/min/1.73m2 [facility] (Non-) [facility] Y eGFR Calculation 76.7 mL/min/1.73m2 [facility] () [facility] Specimen Blood Narrative Performed At Association of Glomerular Filtration Rate (GFR) [facility] and Staging of Kidney Disease* + [...] tests). Performing Organization Address City/State/Zipcode Phone Number [facility] CLIA: [id number], [address] [place], [place] [address] [address] [facility] [address] NOTICE OF PRIVACY PRACTICES (02/22/2019 12:04 PM CDT) Specimen Performing Organization Address City/State/Zipcode Phone Number [facility] NOTICE OF BILLING PRACTICES FOR MEDICARE PATIENTS (02/20/2019 2:44 PM CDT) Specimen Performing Organization Address City/State/Zipcode Phone Number [facility] PATIENT FINANCIAL POLICY (02/20/2019 2:43 PM CDT) Specimen Performing Organization Address City/State/Zipcode Phone Number HIM NO SHOW OR MISSED APPOINTMENT POLICY ACKNOWLEDGEMENT (02/20/2019 2:43 PM CDT) Specimen Performing Organization Address City/State/Zipcode Phone Number HIM from Last 3 Months Insurance Payer Benefit Plan / Subscriber ID Effective Dates Phone Addre ss Type Group MEDICARE MEDICARE PART xxxxxxxxxxx 2018-aDrby [phone] Medicare A & B t 2 [id number] ARELIS SANCHEZ [id number] Advance Directives Type Date Recorded Patient Anvil[employer] Explanati on Advance Directives and Living 01/14/2015 2:00 PM Will Power of Seismograph Helper 08/08/2018 2:03 PM
--- OUTSIDE RECORDS SUMMARY | 2019-09-25 17:12 | XMS REPORT | Summary of Care ---
:1965 Author Organization [facility] Address [address] [place] [address] Care Team Providers Name Role Phone Vianca Barrera MD Primary Care Provider Reason for Referral (Routine) Status Reason Specialty Diagnoses / Referred By Referred To Procedures Contact Contact New Request Pain Medicine Diagnoses Symptomatic HIV infection Gilson Barrera, Procedures CONSULT/REFERRAL PAIN CLINIC [address] [place] [phone] Reason for Visit Reason Comments Follow-up HIV Encounter Details Date Type Department Care Team Description 06/07/2019 Office Visit [facility] Infectious Gilson Barrera, Symptomatic HIV infection (Primary Dx); Diseases- Garner Need for vaccination [facility] [address] [place] [address] 6th [address] [address] [place], [place] [phone] Allergies Active Allergy Reactions Severity Noted Date Comments Iodine And Iodide Containing Products Hives 09/2012 documented as of this encounter (statuses as of 06/09/2019) Medications Medication Sig Dispensed Refills Start End Date Status Date ferrous sulfate Take 1 Cap 90 Cap 0 Act timothy (IRON) 325 mg (65 mg by mouth 2 iron) SR capsule daily with breakfast. Food Supplement, Take 237 mL 12 Can 2 04/03/201 A ctive Lactose-Free (ENSURE by mouth 3 9 ACTIVE HIGH PROTEIN) (three) liquidIndications: times daily. HIV (human immunodeficiency virus infection), Hypertension, unspecified type furosemide 20 mg Take 1 30 tablet 3 Act timothy tabletIndications: tablet by 9 Edema, unspecified mouth daily. type, Snores KCL 20 mEq Take 1 30 tablet 1 Active tabletIndications: tablet by 9 Edema, unspecified mouth daily. type, Snores tiZANidine 2 mg Take 1 90 capsule 5 Act timothy capsuleIndications: capsule by 9 Cervicalgia mouth 3 (three) times daily. losartan 50 mg Take 1 30 tablet 3 Activ e tabletIndications: tablet by 9 Essential mouth daily. hypertension amitriptyline 75 mg Take 1 30 tablet 5 Active tabletIndications: tablet by 9 HIV (human mouth at immunodeficiency bedtime. virus infection) IBUPROFEN 800 mg TAKE ONE 90 tablet 0 Act timothy tablet TABLET BY 9 MOUTH THREE TIMES A DAY WITH MEALS AMLODIPINE 10 mg TAKE ONE 30 tablet 3 Act timothy tabletIndications: TABLET BY 9 HIV (human MOUTH EVERY immunodeficiency MORNING virus infection), Hypertension, unspecified type TRIUMEQ 600-50-300 mg TAKE ONE 30 tablet 4 Active per TABLET BY 9 tabletIndications: MOUTH EVERY HIV (human MORNING immunodeficiency virus infection) pantoprazole 40 mg EC TAKE ONE 60 tablet 3 Active tabletIndications: TABLET BY 9 HIV (human MOUTH TWICE immunodeficiency A DAY virus infection) zolpidem 10 mg Take 1 30 tablet 2 Activ e tabletIndications: tablet by 0 Primary insomnia mouth at bedtime as needed for Insomnia. traZODone 100 mg Take 2 60 tablet 2 Act timothy tabletIndications: tablets by 9 Primary insomnia mouth at bedtime. LORazepam 2 mg Take 1 60 tablet 2 Activ e tabletIndications: tablet by 9 Generalized anxiety mouth 2 disorder with panic (two) times attacks daily as needed (anxiety). escitalopram oxalate Take 1 30 tablet 2 Active 5 mg tablet by 9 tabletIndications: mouth daily. Generalized anxiety disorder with panic attacks, Current moderate episode of major depressive disorder, unspecified whether recurrent mirtazapine 15 mg Take 1 30 tablet 2 Ac tive tabletIndications: tablet by 9 Primary insomnia, mouth at Generalized anxiety bedtime. disorder with panic attacks, Current moderate episode of major depressive disorder, unspecified whether recurrent acetaminophen-codeine Take 1 90 tablet 5 Active 300-30 mg tablet by 0 tabletIndications: mouth every Symptomatic HIV 4 (four) infection hours as needed for Pain (scale 4-6). HYDROcodone-acetamino Taper dose - 30 tablet 0 06/07 Discontinued phen (NORCO) 10-325 1 po q 6h x 9 20 (Alternate mg tabletIndications: 3d, 1 PO q8h therapy) Cervicalgia x3d, 1 po BIDx3d, 1 QD x 3d. 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 Spina bifida with hydrocephalus 06/09/2006 Overview: ICD10 Diagnosis Term Philosophy Professor Utility documented as of this encounter (statuses as of 06/09/2019) Resolved Problems Problem Noted Date Resolved Date S/P total hysterectomy and bilateral salpingo-oophorectomy 0 05/27/2016 05/27/2016 Anemia 03/25/2016 05/27/2016 Thrombocytopenia 03/25/2016 05/27/2016 Weight loss 01/23/2015 05/27/2016 Diarrhea 01/23/2015 05/27/2016 Lymphadenopathy 01/23/2015 05/27/2016 Insomnia 06/27/2013 05/27/2016 Irregular menstrual cycle 12/17/2006 05/27/2016 Pleurisy 12/09/2005 05/27/2016 Overview: ICD10 Diagnosis Term Philosophy Professor Utility Cervicitis and endocervicitis 12/09/2005 05/27/2016 Pain in limb 12/09/2005 05/27/2016 documented as of this encounter (statuses as of 06/09/2019) Immunizations Name Administration Dates Next Due Hep B, Adol or Pedi Dosage 01/01/2016, 07/17/2015, 6 Hepatitis A Adult 08/24/2018 Influenza Virus Vaccine Quad .5 mL IM 6+ 06/07/2019, 019 MO Influenza Virus Vaccine Quad IM 3+ [...] Sign Reading Time Taken Comments Blood Pressure 132/89 06/07/2019 11:01 AM EXPLOSIVE EXPERT Pulse 103 06/07/2019 11:01 AM EXPLOSIVE EXPERT Temperature 36.9 C (98.5 F) 06/07/2019 11:01 AM EXPLOSIVE EXPERT Respiratory Rate 16 06/07/2019 11:01 AM EXPLOSIVE EXPERT Oxygen Saturation - - Inhaled Oxygen Concentration - - Weight 110.3 kg (243 lb 1.6 oz) 06/07/2019 11:01 AM EXPLOSIVE EXPERT Height 171.5 cm (5' 7.5") 06/07/2019 11:01 AM EXPLOSIVE EXPERT Body Mass Index 37.51 06/07/2019 11:01 AM EXPLOSIVE EXPERT documented in this encounter Progress Notes Mela Knapp MA - 06/07/2019 10:30 AM CSTAfter obtaining informed consent for the Influenza Vaccine, the immunization is given by Mela Knapp MA 06/07/2019 11:15 JIE.. Gilson Mcmanus MD - 06/07/2019 10:30 AM CST Visit Type: Established Outpatient Visit Chief Complaint: HIV infection Patient is a 54 year old female who is here today for follow up of HIV infection.. She is without complaints except for chronic back pain. Wants [place]. No other problems ALLERGIES Allergies Allergen Reactions Shellfish [Iodine And Iodide Containing Products] Hives MEDICATIONS Current Outpatient Medications Medication Sig Dispense Refill acetaminophen-codeine 300-30 mg tablet Take 1 tablet by mouth every 4 (four) hours as needed forPain (scale 4-6). 90 tablet 5 escitalopram oxalate 5 mg tablet Take 1 tablet by mouth daily. 30 tablet 2 LORazepam 2 mg tablet Take 1 tablet by mouth 2 (two) times daily as needed (anxiety). 60 tablet 2 mirtazapine 15 mg tablet Take 1 tablet by mouth at bedtime. 30 tablet 2 traZODone 100 mg tablet Take 2 tablets by mouth at bedtime. 60 tablet 2 zolpidem 10 mg tablet Take 1 tablet by mouth at bedtime as needed for Insomnia. 30 tablet 2 pantoprazole 40 mg EC tablet TAKE ONE TABLET BY MOUTH TWICE A DAY 60 tablet 3 TRIUMEQ 600-50-300 mg per tablet TAKE ONE TABLET BY MOUTH EVERY MORNING 30 tablet 4 AMLODIPINE 10 mg tablet TAKE ONE TABLET BY MOUTH EVERY MORNING 30 tablet 3 IBUPROFEN 800 mg tablet TAKE ONE TABLET BY MOUTH THREE TIMES A DAY WITH MEALS 90 tablet 0 amitriptyline 75 mg tablet Take 1 tablet by mouth at bedtime. 30 tablet 5 losartan 50 mg tablet Take 1 tablet by mouth daily. 30 tablet 3 tiZANidine 2 mg capsule Take 1 capsule by mouth 3 (three) times daily. 90 capsule 5 Food Supplement, Lactose-Free (ENSURE ACTIVE HIGH PROTEIN) liquid Take 237 mL by mouth 3 (three)times daily. 12 Can 2 furosemide 20 mg tablet Take 1 tablet by mouth daily. 30 tablet 3 KCL 20 mEq tablet Take 1 tablet by mouth daily. 30 tablet 1 ferrous sulfate (IRON) 325 mg (65 mg iron) SR capsule Take 1 Cap by mouth daily with breakfast. 90 Cap 0 No current facility-administered medications for this visit. HISTORY Past Medical History: Diagnosis Date Asymptomatic human immunodeficiency virus (HIV) infection status Closed fracture of unspecified part of vertebral column without mention of spinal cord injury REVIEW OF SYSTEMS (-)=Negative (+)=Positive General: No fever chills, weight loss, weight gain or sweats. Skin: No rash, warts, boils or moles. HEENT: No headache, double vision, earaches, hearing loss or sore throat. Neck: No masses, pain, stiffness or difficulty swallowing. Hem/Lymph: No fatigue, pallor, easy bruisability and history of bleeding problems or anemia. Respiratory system: No cough, sputum, production or shortness of breath. Cardiovascular: No chest pain, palpations, edema or shortness of breath. Gastrointestinal: No nausea, vomiting, diarrhea, constipation, hematemesis, melena or hematochezia. Genitourinary: No dysuria, pyuria, or kidney failure. Endocrine: No thyroid, adrenal or reproductive hormonal dysfunction. Neurological: No paralysis, seizures or paraesthesia. Back: No back pain, sciatica, or scoliosis. Extremities / musculoskeletal: No pain, redness or joint problems. Psycho / social: No history of anxiety, depression or major psychosis. PHYSICAL EXAM BP 132/89 (BP Location: Left arm, Patient Position: Sitting, BP CUFF SIZE: Adult Medium) | Pulse 103 | Temp 36.9 C (98.5 F) (Oral) | Resp 16 | Ht 5' 7.5" (1.715 m) | Wt 243 lb 1.6 oz (110.3 kg) | LMP 02/23/2015 | BMI 37.51 kg/m Wt Readings from Last 2 Encounters: 06/07/19 243 lb 1.6 oz (110.3 kg) 05/22/19 238 lb 8 oz (108.2 kg) (-)=Negative (+)=Positive HEENT: MMM. PERRL. EOMI. Sclera white. Conj. moist. Oropharynx is free of erythema and ulceration. Neck: Supple without adenopathy, masses, thyroid nodules or thyromegaly. No JVD. Chest: Symmetrical. BS are normal in intensity, vesicular in quality without rales, wheezes, rhonchi. Heart: Reg rhythm. No murmur, gallops or extra heart sounds noted. Abdomen: Soft, non tender, nondistended. No hepatosplenomegaly or masses. Extremities: Intact and symmetrical. Good peripheral pulses without cyanosis, clubbing or edema. Skin: Skin is of normal tone and texture. Free of rashes or pathologic findings. Lymph: There is no diffused or localized adenopathy. Neuro: Pt is alert and oriented. Memory is intact. CN I - XII are intact. Pt has good motor and sensory function. DTRs are 3+ and symmetrical. No focal or lateralizing signs. LABORATORY I have reviewed the patient's labs. All labs are within normal limits. Last CD4: CD4 Absolute (Cells/L) Date Value 03/01/2019 925 08/24/2018 914 01/19/2018 783 Last Viral Load: No results found for: HIVBDNA Last HIV PCR: HIV 1 by Real-Time PCR (no units) Date Value 03/01/2019 Not Detected RADIOLOGY No new Radiology ASSESSMENT/PLAN Symptomatic HIV infection (primary encounter diagnosis) Comment: Stable on current Meds Plan: CD4 SUBSET ASSAY, HIV1 BY REAL-TIME PCR QUANT, BASIC METABOLIC PANEL (NA, K, CL, CO2, GLUCOSE, BUN, CREATININE, CA), COMP. METABOLIC PANEL (73351), HEPATIC FUNCTION PANEL (37107) (ALB,T.PRO,BILI T,BU/BC,ALT,AST,ALK PHOS), CBC WITH DIFF, acetaminophen-codeine 300-30 mg tablet, CONSULT/REFERRAL PAIN CLINIC For chronic pain Need for vaccination Comment: Plan: FLU VACC([id number]), 6+ MONTHS, IM, QUAD (FLUZONE/FLULAVAL/FLUARIX) OSIVE EXPERT documented in this encounter Plan of Treatment Date Type Specialty Care Team Description 08/21/2019 Office Visit Psychiatry Jairon Hernandez MD [address] [place] [address]. [place], [place] [phone] 08/28/2019 Office Visit Cardiology No Hearn M D [address] [place] [phone] 09/06/2019 Office Visit Infectious Disease Tono Barrera MD [address] [place] [phone] Name Type Priority Associated Diagnoses Date/Ti me HIV1 BY REAL-TIME PCR LAB Routine Symptomatic HIV inf ection 06/07/2019 11:35 AM EXPLOSIVE EXPERT QUANT Name Type Priority Associated Diagnoses Order S chedule HIV1 BY REAL-TIME PCR LAB Routine Symptomatic HIV inf ection Expected: 06/07/2019, QUANT Expires: 2020 Health Maintenance Due Date Last Done Comments PAP SMEAR 11/26/2009 11/26/2006 COLONOSCOPY 2016 Zoster Recombinant Vaccine (SHINGRIX) 2016 (1 of 2) Breast Cancer Screening (MAMMOGRAM) 04/13/2018 04/13/2017, 05/07/2011 PNEUMOCOCCAL 0-64 YEARS COMBINED 08/25/2019 08/24/2018 SERIES (2 of 3 - PCV13) DTaP,Tdap,and Td Vaccines (2 - Td) 08/24/2028 08/24/2018 INFLUENZA VACCINE Completed 06/07/2019, 08/24/2018, 03/31/2016 documented as of this encounter Procedures Procedure Name Priority Date/Time Associated Diagnosis Comme nts FLU VACC ([id number]), Routine 06/07/2019 11:04 AM EXPLOSIVE EXPERT Need for vaccination 6+ MONTHS, IM, QUAD documented in this encounter Results COMP. METABOLIC PANEL (10809) (06/07/2019 11:35 AM EXPLOSIVE EXPERT) Pathologist Sig nature NA 139 135 - 145 [facility] mmol/L SERVICES K 4.5 3.5 - 5.0 [facility] mmol/L SERVICES CL 102 98 - 108 mmol/L [facility] SERVICES CO2 TOTAL 25 23 - 31 mmol/L [facility] SERVICES AGAP 12 2 - 16 [facility] SERVICES BUN 7 7 - 23 mg/dL [facility] SERVICES GLUCOSE 92 70 - 110 mg/dL [facility] SERVICES CREATININE 0.74 0.50 - 1.04 [facility] mg/dL SERVICES TOTAL BILI 0.3 0.1 - 1.1 mg/dL [facility] SERVICES CALCIUM 9.2 8.6 - 10.6 [facility] mg/dL SERVICES T PROTEIN 8.3 (H) 6.3 - 8.2 g/dL [facility] SERVICES ALBUMIN 4.2 3.5 - 5.0 g/dL [facility] SERVICES ALK PHOS 80 34 - 122 U/L [facility] SERVICES ALTv 28 5 - 35 U/L [facility] SERVICES AST(SGOT) 29 13 - 40 U/L [facility] SERVICES eGFR Calculation 82.1 mL/min/1.73m2 [facility] (Non- SERVICES Trinidadian) eGFR Calculation 99.5 mL/min/1.73m2 [facility] () SERVICES Specimen Blood Narrative Performed At Association of Glomerular Filtration Rate (GFR) and St aging [facility] SERVICES of Kidney Disease* + + [...] od or urine or abnormalities in imaging tests) . Performing Organization Address City/[facility] Phone Number [facility] CLIA: [id number], [address] [place] [phone] [facility] CD4 SUBSET ASSAY (06/07/2019 11:35 AM EXPLOSIVE EXPERT) Pathologist [facility] nature CD4 % 33 31 - 60 % [facility] SERVICES CD4 Absolute 1,010 410-1,590 Cells/L [facility] SERVI LEONARDO Specimen Blood Performing Organization Address [facility] Phone Number [facility] CLIA: [id number], [address] [place], [place] [address] [facility] documented in this encounter Visit Diagnoses Diagnosis Symptomatic HIV infection - Primary Human immunodeficiency virus [HIV] disea se Need for vaccination Need for prophylactic vaccination and in oculation against unspecified single disease documented in this encounter Insurance Payer Benefit Plan / Subscriber ID Effective Dates Phone Addre ss Type Group MEDICARE MEDICARE PART xxxxxxxxxxx 2018-Darby [phone] 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
--- OUTSIDE RECORDS SUMMARY | 2019-09-25 17:12 | XMS REPORT | Summary of Care ---
:1965 Author Organization [facility] Address [address] [place] [address] Care Team Providers Name Role Phone Vianca Barrera MD Primary Care Provider Reason for Visit Reason Comments Blood Draw Encounter Details Date Type Department Care Team Description 06/07/2019 Machine Cloth Trimmer Visit [facility] Gilson Barrera MD [address] [place], [place] [phone] Symptomatic HIV [facility] infection Allergies Active Allergy Reactions Severity Noted Date Comments Iodine And Iodide Containing Products Hives 09/2012 documented as of this encounter (statuses as of 06/07/2019) Medications Medication Sig Dispensed Refills Start Date [...] Active tabletIndications: by mouth daily. Essential hypertension amitriptyline 75 mg Take 1 tablet 30 [...] of major depressive disorder, unspecified whether recurrent documented as of this encounter (statuses as of 06/07/2019) Active Problems Problem Noted Date Tendonitis of wrist, right 02/24/2017 Hypertension 02/24/2017 Bronchitis 02/24/2017 Vertigo 08/12/2016 Knee pain 08/12/2016 Acute cystitis without hematuria 05/27/2016 S/P JEOVANY (total abdominal hysterectomy) 05/27/2016 Status post bilateral salpingectomy 05/27/2016 Obesity (BMI 30-39.9) 03/26/2016 HIV (human immunodeficiency virus infection) 5 Depression 01/23/2015 intermediate accountant use of drug 06/27/2013 Cervicalgia 11/27/2008 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 Spina bifida with hydrocephalus 06/09/2006 Overview: ICD10 Diagnosis 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 Muffler Installer Utility documented as of this encounter (statuses as of 06/07/2019) Resolved Problems Problem Noted Date Resolved Date S/P total hysterectomy and bilateral salpingo-oophorectomy 0 05/27/2016 05/27/2016 Anemia 03/25/2016 05/27/2016 Thrombocytopenia 03/25/2016 05/27/2016 Weight loss 01/23/2015 05/27/2016 Diarrhea 01/23/2015 05/27/2016 Lymphadenopathy 01/23/2015 05/27/2016 Insomnia 06/27/2013 05/27/2016 Irregular menstrual cycle 12/17/2006 05/27/2016 Pleurisy 12/09/2005 05/27/2016 Overview: ICD10 Diagnosis Term Muffler Installer Utility Cervicitis and endocervicitis 12/09/2005 05/27/2016 Pain in limb 12/09/2005 05/27/2016 documented as of this encounter (statuses as of 06/07/2019) Immunizations Name Administration Dates Next Due Hep [...] 08/21/2019 Office Visit Psychiatry Jairon Hernandez MD [address] [place] [address] [address] [place], [place] [phone] 08/28/2019 Office Visit Cardiology No Hearn M D [address] [place] [address] [address] [place], [place] [address] 09/06/2019 Office Visit Infectious Disease Tono Barrera MD [address] [place], [place] [address] Name Type Priority Associated Diagnoses Date/Ti me CD4 SUBSET ASSAY LAB Routine Symptomatic HIV 06/07/19 11:35 AM infection FENDER MECHANIC HIV1 BY REAL-TIME PCR LAB Routine Symptomatic HIV 11:35 AM QUANT infection FENDER MECHANIC COMP. METABOLIC PANEL LAB Routine Symptomatic HIV 11:35 AM ([id number]) infection FENDER MECHANIC CBC WITH DIFF LAB Routine Symptomatic HIV 06/07/2019 11:35 AM infection FENDER MECHANIC CBC WITH DIFFERENTIAL LAB Routine Symptomatic HIV 11:35 AM infection FENDER MECHANIC BILI UNCONJUGATED/BILI LAB Routine Symptomatic HIV 11:35 AM CONJUG infection FENDER MECHANIC Name Type Priority Associated Diagnoses Order S chedule BILI UNCONJUGATED/BILI LAB Routine Symptomatic HIV in fection Expected: 06/07/2019, CONJUG Expires: 2020 Health Maintenance Due Date Last [...] filedocumented in this encounter Visit Diagnoses Diagnosis Symptomatic HIV infection Human immunodeficiency virus [HIV] disea se documented in this encounter Insurance Payer Benefit Plan / Subscriber ID Effective Dates Phone Addre ss Type Group MEDICARE MEDICARE PART xxxxxxxxxxx 2018-Darby [phone] Medicare A & B t 2 [id number] ARELIS SANCHEZ [phone] documented as of this encounter Advance Directives Type Date Recorded Patient Folder Machine Operator Explanati on Advance Directives and Living 01/14/2015 2:00 PM Will Power of Validation Manager 08/08/2018 2:03 PM
--- OUTSIDE RECORDS SUMMARY | 2019-09-25 17:12 | XMS REPORT | Summary of Care ---
:1965 Author Organization [facility] Address [address] [place] [address] Care Team Providers Name Role Phone Vianca Barrera MD Primary Care Provider Reason for Referral (Routine) Status Reason Specialty Diagnoses / Referred By Referred To Procedures Contact Contact New Request Pain Medicine Diagnoses Symptomatic HIV infection Gilson Barrera, Procedures CONSULT/REFERRAL PAIN CLINIC [address] [place] [phone] Reason for Visit Reason Comments Follow-up HIV Encounter Details Date Type Department Care Team Description 06/07/[address] [facility] Infectious Gilson Barrera, Symptomatic HIV infection (Primary Dx); Diseases- [place] Need for vaccination 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 Spina bifida with hydrocephalus 06/09/2006 Overview: ICD10 Diagnosis Term Table Games Dealer Utility documented as of this encounter (statuses as of 06/09/2019) Resolved Problems Problem Noted Date Resolved Date S/P total hysterectomy and bilateral salpingo-oophorectomy 0 05/27/2016 05/27/2016 Anemia 03/25/2016 05/27/2016 Thrombocytopenia 03/25/2016 05/27/2016 Weight loss 01/23/2015 05/27/2016 Diarrhea 01/23/2015 05/27/2016 Lymphadenopathy 01/23/2015 05/27/2016 Insomnia 06/27/2013 05/27/2016 Irregular menstrual cycle 12/17/2006 05/27/2016 Pleurisy 12/09/2005 05/27/2016 Overview: ICD10 Diagnosis Term Table Games Dealer Utility Cervicitis and endocervicitis 12/09/2005 05/27/2016 Pain [...] Comments Blood Pressure 132/89 06/07/2019 11:01 AM SENIOR IT ASSISTANT Pulse 103 06/07/2019 11:01 AM SENIOR IT ASSISTANT Temperature 36.9 C (98.5 F) 06/07/2019 11:01 AM SENIOR IT ASSISTANT Respiratory Rate 16 06/07/2019 11:01 AM SENIOR IT ASSISTANT Oxygen Saturation - - Inhaled Oxygen Concentration - - Weight 110.3 kg (243 lb 1.6 oz) 06/07/2019 11:01 AM SENIOR IT ASSISTANT Height 171.5 cm (5' 7.5") 06/07/2019 11:01 AM SENIOR IT ASSISTANT Body Mass Index 37.51 06/07/2019 11:01 AM SENIOR IT ASSISTANT documented in this encounter Progress Notes Mela [...] complaints except for chronic back pain. Wants [place]. No other problems ALLERGIES Allergies Allergen Reactions [...] GLUCOSE, BUN, CREATININE, CA), COMP. METABOLIC PANEL (58645), HEPATIC FUNCTION PANEL ([id number]) (ALB,T.PRO,BILI T,BU/BC,ALT,AST,ALK PHOS), CBC WITH DIFF, acetaminophen-codeine 300-30 mg tablet, CONSULT/REFERRAL PAIN CLINIC For chronic pain Need for vaccination Comment: Plan: FLU VACC([id number]), 6+ MONTHS, IM, QUAD (FLUZONE/FLULAVAL/FLUARIX) OR IT ASSISTANT documented in this encounter Plan of Treatment Date Type Specialty Care Team Description 08/21/2019 Office Visit Psychiatry Jairon Hernandez MD [address] [place] [address]. [place], [place] [phone] 08/28/2019 Office Visit Cardiology No Hearn M D [address] [place] [phone] 09/06/2019 Office Visit Infectious Disease Tono Barrera MD [address] [place] [address] 77 555 Name Type Priority Associated Diagnoses Date/Ti me HIV1 BY REAL-TIME PCR LAB Routine Symptomatic HIV inf ection 06/07/2019 11:35 AM SENIOR IT ASSISTANT QUANT Name Type Priority Associated Diagnoses Order [...] Date/Time Associated Diagnosis Comme nts FLU VACC ([id number]), Routine 06/07/2019 11:04 AM SENIOR IT ASSISTANT Need for vaccination 6+ MONTHS, IM, QUAD documented in this encounter Results COMP. METABOLIC PANEL ([id number]) (06/07/2019 11:35 AM SENIOR IT ASSISTANT) Pathologist Sig nature NA 139 135 - 145 [facility] mmol/L SERVICES K 4.5 3.5 - 5.0 [facility] mmol/L SERVICES CL 102 98 - 108 mmol/L [facility] CO2 TOTAL 25 23 - 31 mmol/L [facility] AGAP 12 2 - 16 [facility] BUN 7 7 - 23 mg/dL [facility] GLUCOSE 92 70 - 110 mg/dL [facility] CREATININE 0.74 0.50 - 1.04 [facility] mg/dL SERVICES TOTAL BILI 0.3 0.1 - 1.1 mg/dL [facility] SERVICES CALCIUM 9.2 8.6 - 10.6 [facility] mg/dL SERVICES T PROTEIN 8.3 (H) 6.3 - 8.2 g/dL [facility] SERVICES ALBUMIN 4.2 3.5 - 5.0 g/dL [facility] SERVICES ALK PHOS 80 34 - 122 U/L [facility] ALTv 28 5 - 35 U/L [facility] AST(SGOT) 29 13 - 40 U/L [facility] SERVICES eGFR Calculation 82.1 mL/min/1.73m2 [facility] (Non- SERVICES Bahamian) eGFR Calculation 99.5 mL/min/1.73m2 [facility] () SERVICES Specimen Blood Narrative Performed At Association of Glomerular Filtration Rate (GFR) and St aging [facility] SERVICES of Kidney Disease* + + [...] in imaging tests) . Performing Organization Address City/[facility] Phone Number [facility] CLIA: [id number], [address] [place] [address] [facility] CD4 SUBSET ASSAY (06/07/2019 11:35 AM SENIOR IT ASSISTANT) Pathologist [facility] nature CD4 % 33 31 - 60 % [facility] SERVICES CD4 Absolute 1,010 410-1,590 Cells/L [facility] SERVI LEONARDO Specimen Blood Performing Organization Address [facility] Phone Number [facility] CLIA: [id number], [address] [place], [place] [address] [facility] documented in this encounter Visit Diagnoses Diagnosis Symptomatic HIV infection - Primary Human immunodeficiency virus [HIV] disea se Need for vaccination Need for prophylactic vaccination and in oculation against unspecified single disease documented in this encounter Insurance Payer Benefit Plan / Subscriber ID Effective Dates Phone Addre ss Type Group MEDICARE MEDICARE PART xxxxxxxxxxx 2018-Darby [phone] 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
--- OUTSIDE RECORDS SUMMARY | 2019-09-25 17:13 | XMS REPORT | Clinical Summary ---
:1965 Author Organization [facility] Address [address] [place] [address] Care Team Providers Name Role Phone Vianca [...] MOUTH THREE TIMES A DAY WITH MEALS TRIUMEQ 600-50-300 mg TAKE ONE TABLET 30 [...] with panic daily as needed attacks (anxiety). acetaminophen-codeine Take 1 tablet 90 tablet 5 06/07/2019 Active 300-30 mg by mouth every tabletIndications: 4 (four) hours Symptomatic HIV as needed for infection Pain (scale 4-6). AMLODIPINE 10 mg TAKE ONE TABLET 30 tablet 2 06/26/2019 Active tabletIndications: HIV BY MOUTH EVERY (human immunodeficiency MORNING virus infection), Hypertension, unspecified type escitalopram oxalate 5 Take 1 tablet 30 tablet 0 08/16/2019 Active mg tabletIndications: by mouth daily. Generalized anxiety disorder with panic attacks, Current moderate episode of major depressive disorder, unspecified whether recurrent mirtazapine 15 mg Take 1 tablet 30 tablet 0 08/16/2019 Active tabletIndications: by mouth at Primary insomnia, bedtime. 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 Resolved Problems Problem Noted Date Resolved Date S/P total hysterectomy and bilateral salpingo-oophorectomy 0 05/27/2016 05/27/2016 Anemia 03/25/2016 05/27/2016 Thrombocytopenia 03/25/2016 05/27/2016 Weight loss 01/23/2015 05/27/2016 Diarrhea 01/23/2015 05/27/2016 Lymphadenopathy 01/23/2015 05/27/2016 Insomnia 06/27/2013 05/27/2016 Irregular menstrual cycle 12/17/2006 05/27/2016 Pleurisy 12/09/2005 05/27/2016 Overview: ICD10 Diagnosis Term Fruit Peeler Utility Cervicitis and endocervicitis 12/09/2005 05/27/2016 Pain in limb 12/09/2005 05/27/2016 Encounters Date Type Specialty Care Team Description 06/12/2019 Refill Infectious Disease Gilson Barrera, Refi ll Request 06/07/2019 Airborne Operations Manager Visit Phlebotomy Gilson Barrera, Sympto matic HIV MD infection [facility] 06/07/2019 Office Visit Infectious Disease Gilson Barrera, Symp tomatic HIV infection (Primary Dx); Need for vaccin ation 05/22/2019 Orders Only Doctor Unassigned, [place] from Last 3 Months Immunizations Name Administration [...] Comments Blood Pressure 132/89 06/07/2019 11:01 AM ORAL COMMUNICATION INSTRUCTOR Pulse 103 06/07/2019 11:01 AM ORAL COMMUNICATION INSTRUCTOR Temperature 36.9 C (98.5 F) 06/07/2019 11:01 AM ORAL COMMUNICATION INSTRUCTOR Respiratory Rate 16 06/07/2019 11:01 AM ORAL COMMUNICATION INSTRUCTOR Oxygen Saturation 100% 02/22/2019 11:30 AM CDT Inhaled Oxygen Concentration - - Weight 110.3 kg (243 lb 1.6 oz) 06/07/2019 11:01 AM ORAL COMMUNICATION INSTRUCTOR Height 171.5 cm (5' 7.5") 06/07/2019 11:01 AM ORAL COMMUNICATION INSTRUCTOR Body Mass Index 37.51 06/07/2019 11:01 AM ORAL COMMUNICATION INSTRUCTOR Plan of Treatment Date Type Specialty Care Team Description 08/28/2019 Office Visit Cardiology No Hearn M D [address] [address] [phone] 08/30/2019 Office Visit Infectious Disease Tono Barrera MD [address] [place], [place] [address] Health Maintenance Due Date Last Done Comments PAP SMEAR 11/26/2009 11/26/2006 COLONOSCOPY 2016 Zoster Recombinant Vaccine (SHINGRIX) 2016 (1 of 2) Breast Cancer Screening (MAMMOGRAM) 04/13/2018 04/13/2017, 05/07/2011 PNEUMOCOCCAL 0-64 YEARS COMBINED 08/25/2019 08/24/2018 SERIES (2 of 3 - PCV13) DTaP,Tdap,and Td Vaccines (2 - Td) 08/24/2028 08/24/2018 INFLUENZA VACCINE Completed 06/07/2019, 08/24/2018, 03/31/2016 Procedures Procedure Name Priority Date/Time Associated Diagnosis Comme nts BILI Routine 06/07/2019 11:35 Symptomatic HIV Results for this UNCONJUGATED/BILI AM ORAL COMMUNICATION INSTRUCTOR infection procedure are in CONJUG the results section. CBC WITH DIFFERENTIAL Routine 06/07/2019 11:35 Symptomatic HIV Results for this AM ORAL COMMUNICATION INSTRUCTOR infection procedure are i n the results section. CBC WITH DIFFERENTIAL Routine 06/07/2019 11:35 Symptomatic HIV Results for this AM ORAL COMMUNICATION INSTRUCTOR infection procedure are i n the results section. COMP. METABOLIC PANEL Routine 06/07/2019 11:35 Symptomatic HIV Results for this ([id number]) AM ORAL COMMUNICATION INSTRUCTOR infection procedure are i n the results section. HIV1 BY REAL-TIME PCR Routine 06/07/2019 11:35 Symptomatic HIV Results for this QUANT AM ORAL COMMUNICATION INSTRUCTOR infection procedure are i n the results section. CD4 SUBSET ASSAY Routine 06/07/2019 11:35 Symptomatic HIV Resu lts for this AM ORAL COMMUNICATION INSTRUCTOR infection procedure are i n the results section. FLU VACC ([id number]), Routine 06/07/2019 11:04 Need for vaccin ation 6+ MONTHS, IM, QUAD AM ORAL COMMUNICATION INSTRUCTOR CONSENT TO CONTACT Routine 05/22/2019 2:19 Resul ts for this FOR VOLUNTARY PM ORAL COMMUNICATION INSTRUCTOR procedure are in RESEARCH the results section. CONSENT/REFUSAL FOR Routine 05/22/2019 1:50 DIAGNOSIS AND PM ORAL COMMUNICATION INSTRUCTOR TREATMENT ASSIGNMENT OF Routine 05/22/2019 1:50 BENEFITS PM ORAL COMMUNICATION INSTRUCTOR from Last 3 Months Results CBC WITH DIFFERENTIAL (06/07/2019 11:35 AM ORAL COMMUNICATION INSTRUCTOR) WBC 5.65 4.30 - 11.10 [facility] 10*3/L SERVICES RBC 3.97 3.93 - 5.25 [facility] 10*6/L SERVICES HGB 12.4 11.6 - 15.0 [facility] g/dL SERVICES HCT 36.3 35.7 - 45.2 % [facility] SERVICES MCV 91.4 80.6 - 95.5 fL [facility] SERVICES MCH 31.2 25.9 - 32.8 pg [facility] SERVICES MCHC 34.2 31.6 - 35.1 [facility] g/dL SERVICES RDW-SD 46.1 39.0 - 49.9 fL [facility] SERVICES RDW-CV 13.7 12.0 - 15.5 % [facility] SERVICES PLT 353 166 - 358 [facility] 10*3/L SERVICES MPV 10.2 9.5 - 12.9 fL [facility] SERVICES NRBC/100 WBC 0.0 0.0 - 10.0 [facility] /100 WBCs SERVICES NRBC x10^3 <0.01 10*3/L [facility] SERVICES GRAN MAT (NEUT) % 32.8 % [facility] SERVICES IMM GRAN % 0.20 % [facility] LYMPH % 56.1 % [facility] MONO % 9.0 % [facility] SERVICES EOS % 1.4 % [facility] SERVICES BASO % 0.5 % [facility] SERVICES GRAN MAT x10^3(ANC) 1.85 (L) 1.88 - 7.09 [facility] 10*3/uL SERVICES IMM GRAN x10^3 <0.03 0.00 - 0.06 [facility] 10*3/uL SERVICES LYMPH x10^3 3.17 1.32 - 3.29 [facility] 10*3/uL SERVICES MONO x10^3 0.51 0.33 - 0.92 [facility] 10*3/uL SERVICES EOS x10^3 0.08 0.03 - 0.39 [facility] 10*3/uL SERVICES BASO x10^3 0.03 0.01 - 0.07 [facility] 10*3/uL SERVICES LG GRAN LYMPHS Moderate (A) Rare [facility] Specimen Blood Performing Organization Address City/State/[facility] Phone Number [facility] CLIA: [id number], [address] [place] [address] [facility] HIV1 BY REAL-TIME PCR QUANT (06/07/2019 11:35 AM ORAL COMMUNICATION INSTRUCTOR) HIV 1 by Real-Time Not Detected Not Detected [facility] PCR SERVICES Specimen Blood Narrative Performed At HIV-1 Real-Time PCR [facility] Interpretative data: Water [employer] m2000 Real Time HIV-1 reverse savings counselor-polymerase chain reaction (RT-PCR) assay is used. It [...] upper limit of quantification. Performing Organization Address City/State/Zipcode Phone Number [facility] CLIA: [id number], [address] [place], [place] [address] [facility] CD4 SUBSET ASSAY (06/07/2019 11:35 AM ORAL COMMUNICATION INSTRUCTOR) Pathologist Sig nature CD4 % 33 31 - 60 % [facility] CD4 Absolute 1,010 410-1,590 Cells/L [facility] SERVI LEONARDO Specimen Blood Performing Organization Address City/State/Zipcode Phone Number [facility] CLIA: [id number], [address] [place], [place] [address] [facility] COMP. METABOLIC PANEL ([id number]) (06/07/2019 11:35 AM ORAL COMMUNICATION INSTRUCTOR) Pathologist Sig nature NA 139 135 - 145 [facility] mmol/L SERVICES K 4.5 3.5 - 5.0 [facility] mmol/L SERVICES CL 102 98 - 108 mmol/L [facility] SERVICES CO2 TOTAL 25 23 - 31 mmol/L [facility] AGAP 12 2 - 16 [facility] BUN 7 7 - 23 mg/dL [facility] GLUCOSE 92 70 - 110 mg/dL [facility] CREATININE 0.74 0.50 - 1.04 [facility] mg/dL SERVICES TOTAL BILI 0.3 0.1 - 1.1 mg/dL [facility] SERVICES CALCIUM 9.2 8.6 - 10.6 [facility] mg/dL SERVICES T PROTEIN 8.3 (H) 6.3 - 8.2 g/dL [facility] SERVICES ALBUMIN 4.2 3.5 - 5.0 g/dL [facility] SERVICES ALK PHOS 80 34 - 122 U/L [facility] ALTv 28 5 - 35 U/L [facility] AST(SGOT) 29 13 - 40 U/L [facility] SERVICES eGFR Calculation 82.1 mL/min/1.73m2 [facility] (Non- SERVICES Nicaraguan) eGFR Calculation 99.5 mL/min/1.73m2 [facility] () SERVICES Specimen Blood Narrative Performed At Association of Glomerular Filtration Rate (GFR) and St aging [facility] SERVICES of Kidney Disease* + [...] in imaging tests) . Performing Organization Address City/State/Zipcode Phone Number [facility] CLIA: [id number], [address] [place] [address] [facility] BILI UNCONJUGATED/BILI CONJUG (06/07/2019 11:35 AM ORAL COMMUNICATION INSTRUCTOR) Pathologist Sig nature BILI CONJ 0.0 0.0 - 0.3 mg/dL [facility] BILI UNCON 0.2 0.1 - 1.1 mg/dL [facility] Specimen Blood Performing Organization Address City/State/Zipcode Phone Number [facility] CLIA: [id number], [address] [place] [address] [facility] CONSENT TO CONTACT FOR VOLUNTARY RESEARCH (05/22/2019 2:19 PM ORAL COMMUNICATION INSTRUCTOR) Pathologist Sig nature Consent To Contact For Voluntary Yes HIM Research Specimen Performing Organization Address City/State/PayScalecode Phone Number HIM CONSENT/REFUSAL FOR DIAGNOSIS AND TREATMENT (05/22/2019 1:50 PM ORAL COMMUNICATION INSTRUCTOR) Specimen Performing Organization Address City/State/Zipcode Phone Number [facility] ASSIGNMENT OF BENEFITS (05/22/2019 1:50 PM ORAL COMMUNICATION INSTRUCTOR) Specimen Performing Organization Address City/State/Zipcode Phone Number HIM from Last 3 Months Insurance Payer Benefit Plan / Subscriber ID Effective Dates Phone Addre ss Type Group MEDICARE MEDICARE PART xxxxxxxxxxx 2018-Darby [phone] 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
--- OUTSIDE RECORDS SUMMARY | 2019-09-25 17:13 | XMS REPORT | Summary of Care ---
:1965 Author Organization [facility] Address [address] [place] [address] Care Team Providers Name Role Phone Vianca Barrera MD Primary Care Provider Encounter Details Date Type Department Care Team Description 06/13/2019 Letter (Out) [facility] Anesthesia Pain-[facility] Neal Sam, [facility] [address] [facility] 301 [facility] [address] [place], [place] [phone] [place], [place] [phone] Allergies Active Allergy Reactions Severity Noted Date Comments Iodine And Iodide Containing Products Hives 09/2012 documented as of this encounter (statuses as of 06/13/2019) Medications Medication Sig Dispensed Refills Start Date [...] disorder, unspecified whether recurrent acetaminophen-codeine Take 1 tablet 90 tablet 5 06/07/2019 Active 300-30 mg by mouth every tabletIndications: 4 (four) hours Symptomatic HIV as needed for infection Pain (scale 4-6). 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 Spina bifida with hydrocephalus 06/09/2006 Overview: ICD10 Diagnosis Term Solutions Manager Utility documented as of this encounter (statuses as of 06/13/2019) Resolved Problems Problem Noted Date Resolved Date S/P total hysterectomy and bilateral salpingo-oophorectomy 0 05/27/2016 05/27/2016 Anemia 03/25/2016 05/27/2016 Thrombocytopenia 03/25/2016 05/27/2016 Weight loss 01/23/2015 05/27/2016 Diarrhea 01/23/2015 05/27/2016 Lymphadenopathy 01/23/2015 05/27/2016 Insomnia 06/27/2013 05/27/2016 Irregular menstrual cycle 12/17/2006 05/27/2016 Pleurisy 12/09/2005 05/27/2016 Overview: ICD10 Diagnosis Term Solutions Manager Utility Cervicitis and endocervicitis 12/09/2005 05/27/2016 Pain in limb 12/09/2005 05/27/2016 documented as of this encounter (statuses as of 06/13/2019) Immunizations Name Administration Dates Next Due Hep [...] 08/21/2019 Office Visit Psychiatry Jairon Hernandez MD 301 [facility] [place] [place], [place] [phone] 08/28/2019 Office Visit Cardiology No Hearn M D 146 [facility] [address] [place], [place] [address] 09/06/2019 Office Visit Infectious Disease Tono Barrera MD [address] [place], [place] [address] Health Maintenance Due Date Last Done Comments PAP SMEAR 11/26/2009 11/26/2006 COLONOSCOPY 2016 Zoster Recombinant Vaccine (SHINGRIX) 2016 (1 of 2) Breast Cancer Screening (MAMMOGRAM) 04/13/2018 04/13/2017, 05/07/2011 PNEUMOCOCCAL 0-64 YEARS COMBINED 08/25/2019 08/24/2018 SERIES (2 of 3 - PCV13) DTaP,Tdap,and Td Vaccines (2 - Td) 08/24/2028 08/24/2018 INFLUENZA VACCINE Completed 06/07/2019, 08/24/2018, 03/31/2016 documented as of this encounter Results Not on filedocumented in this encounter Insurance Payer Benefit Plan / Subscriber ID Effective Dates Phone Addre ss Type Group MEDICARE MEDICARE PART xxxxxxxxxxx 2018-Darby [phone] [address] Medicare A & B t 2 [id number] ARELIS SANCHEZ [id number] documented as of this encounter Advance Directives Type Date Recorded Patient Physician Assistant Primary Care Explanati on Advance Directives and Living 01/14/2015 2:00 PM Will Power of Cylinder Head Assembler 08/08/2018 2:03 PM
--- OUTSIDE RECORDS SUMMARY | 2019-09-25 17:13 | XMS REPORT | Summary of Care ---
:[address] [facility] - [address] [address] Care Team Providers Name Role Phone Vianca Barrera MD Primary Care Provider Reason for Visit Reason Comments Refill Request Encounter Details Date Type Department Care Team Description 06/12/2019 Refill [facility] Infectious eJs Barrera MD Refill Request Diseases- [place] [id number] [address] [place], [place] [id number] [place] [address] Allergies Active Allergy Reactions Severity Noted Date Comments Iodine And Iodide Containing Products Hives 09/2012 documented as of this encounter (statuses as of 06/26/2019) Medications Medication Sig Dispensed Refills Start Date End Date Status ferrous sulfate (IRON) Take 1 Cap 90 Cap 0 08/03/2011 Active 325 mg (65 mg iron) SR by mouth capsule daily with breakfast. Food Supplement, Take 237 mL Can 2 08/24/2018 Active Lactose-Free (ENSURE by [...] by Cervicalgia mouth 3 (three) times daily. losartan 50 mg Take 1 30 tablet 3 11/21/2018 Acti ve tabletIndications: tablet by Essential hypertension mouth daily. amitriptyline 75 mg Take 1 30 tablet 5 11/23/2018 Active tabletIndications: HIV tablet by (human mouth at immunodeficiency virus bedtime. infection) IBUPROFEN 800 mg TAKE ONE 90 tablet 0 03/13/2019 Ac tive tablet TABLET BY MOUTH THREE TIMES A DAY WITH MEALS TRIUMEQ 600-50-300 mg TAKE ONE 30 tablet 4 05/03/2019 Active per tabletIndications: TABLET BY HIV (human MOUTH EVERY immunodeficiency virus MORNING infection) pantoprazole 40 mg EC TAKE ONE 60 tablet 3 05/03/2019 Active tabletIndications: HIV TABLET BY (human MOUTH TWICE immunodeficiency virus A DAY infection) zolpidem 10 mg Take 1 30 tablet 2 06/07/2019 Acti ve tabletIndications: tablet by Primary insomnia mouth at bedtime as needed for Insomnia. traZODone 100 mg Take 2 60 tablet 2 05/22/2019 Ac tive tabletIndications: tablets by Primary insomnia mouth at bedtime. LORazepam 2 mg Take 1 60 tablet 2 05/22/2019 Acti ve tabletIndications: tablet by Generalized anxiety mouth 2 disorder with panic (two) times attacks daily as needed (anxiety). escitalopram oxalate 5 Take 1 30 tablet 2 05/22/2019 Active mg tabletIndications: tablet by Generalized anxiety mouth daily. disorder with panic attacks, Current moderate episode of major depressive disorder, unspecified whether recurrent mirtazapine 15 mg Take 1 30 tablet 2 05/22/2019 A ctive tabletIndications: tablet by Primary insomnia, mouth at Generalized anxiety bedtime. disorder with panic attacks, Current moderate episode of major depressive disorder, unspecified whether recurrent acetaminophen-codeine Take 1 90 tablet 5 06/07/2019 Active 300-30 mg tablet by tabletIndications: mouth every Symptomatic HIV 4 (four) infection hours as needed for Pain (scale 4-6). 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 documented as of this encounter (statuses as of 06/26/2019) Resolved Problems Problem Noted Date Resolved Date S/P total hysterectomy and bilateral salpingo-oophorectomy 0 05/27/2016 05/27/2016 Anemia 03/25/2016 05/27/2016 Thrombocytopenia 03/25/2016 05/27/2016 Weight loss 01/23/2015 05/27/2016 Diarrhea 01/23/2015 05/27/2016 Lymphadenopathy 01/23/2015 05/27/2016 Insomnia 06/27/2013 05/27/2016 Irregular menstrual cycle 12/17/2006 05/27/2016 Pleurisy 12/09/2005 05/27/2016 Overview: ICD10 Diagnosis 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 [place], [place] [phone] 08/28/2019 Office Visit Cardiology No Hearn M D [address] [place] [address] [place] [phone] 09/06/2019 Office Visit Infectious Disease Tono Barrera MD [address] [place], [place] [address] Health Maintenance Due Date [...] Type Group MEDICARE MEDICARE PART xxxxxxxxxxx 2018-Darby [phone] 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
--- OUTSIDE RECORDS SUMMARY | 2019-09-25 17:14 | XMS REPORT | Summary of Care ---
:1965 Author Organization [facility] - [address] [address] Care Team Providers Name Role Phone Vianca Barrera MD Primary Care Provider Reason for Visit Reason Comments Refill Request Encounter Details Date Type Department Care Team Description 09/04/2019 Refill [facility] Infectious Jes Barrera MD Refill Request Diseases- [place] [id number] [address] [place], [place] [id number] [place] [address] Allergies Active Allergy Reactions Severity Noted Date Comments Iodine And Iodide Containing Products Hives 09/2012 documented as of this encounter (statuses as of 09/04/2019) Medications Medication Sig Dispensed Refills Start Date [...] by Cervicalgia mouth 3 (three) times daily. amitriptyline 75 mg Take 1 30 tablet 5 11/23/2018 Active tabletIndications: HIV tablet by (human mouth at immunodeficiency virus bedtime. infection) IBUPROFEN 800 mg TAKE ONE 90 tablet 0 03/13/2019 Ac tive tablet TABLET BY MOUTH THREE TIMES A DAY WITH MEALS pantoprazole 40 mg EC TAKE ONE 60 tablet 3 05/03/2019 Active tabletIndications: HIV TABLET BY (human MOUTH TWICE immunodeficiency virus A DAY infection) acetaminophen-codeine Take 1 90 tablet 5 06/07/2019 Active 300-30 mg tablet by tabletIndications: mouth every Symptomatic HIV 4 (four) infection hours as needed for Pain (scale 4-6). escitalopram oxalate 5 Take 1 30 tablet 0 08/16/2019 Active mg tabletIndications: tablet by Generalized anxiety mouth daily. disorder with panic attacks, Current moderate episode of major depressive disorder, unspecified whether recurrent mirtazapine 15 mg Take 1 30 tablet 0 08/16/2019 A ctive tabletIndications: tablet by Primary insomnia, mouth at Generalized anxiety bedtime. disorder with panic attacks, Current moderate episode of major depressive disorder, unspecified whether recurrent traZODone 100 mg Take 2 60 tablet 0 08/16/2019 Ac tive tabletIndications: tablets by Primary insomnia mouth at bedtime. LORazepam 2 mg Take 1 60 tablet 2 08/21/2019 Acti ve tabletIndications: tablet by Generalized anxiety mouth 2 disorder with panic (two) times attacks daily as needed (anxiety). zolpidem 10 mg Take 1 30 tablet 2 08/21/2019 Acti ve tabletIndications: tablet by Primary insomnia mouth at bedtime as needed for Insomnia. AMLODIPINE 10 mg TAKE ONE 30 tablet 1 09/04/2019 Ac tive tabletIndications: HIV TABLET BY (human MOUTH EVERY immunodeficiency virus MORNING infection), Hypertension, unspecified type TRIUMEQ 600-50-300 mg TAKE ONE 30 tablet 3 09/04/2019 Active per tabletIndications: TABLET BY HIV (human MOUTH EVERY immunodeficiency virus MORNING infection) TRIUMEQ 600-50-300 mg TAKE ONE 30 tablet 4 05/03/2019 02 Discontinued per tabletIndications: TABLET BY 0 HIV (human MOUTH EVERY immunodeficiency virus MORNING infection) AMLODIPINE 10 mg TAKE ONE 30 tablet 2 06/26/2019 Di scontinued tabletIndications: HIV TABLET BY 0 (human MOUTH EVERY immunodeficiency virus MORNING infection), Hypertension, unspecified type documented as of this encounter (statuses as of 09/04/2019) Active Problems Problem Noted Date Tendonitis of wrist, right 02/24/2017 Hypertension 02/24/2017 Bronchitis 02/24/2017 Vertigo 08/12/2016 Knee pain 08/12/2016 Acute cystitis without hematuria 05/27/2016 S/P JEOVANY (total abdominal hysterectomy) 05/27/2016 Status post bilateral salpingectomy 05/27/2016 Obesity (BMI 30-39.9) 03/26/2016 HIV (human immunodeficiency virus infection) 5 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 06/27/2013 Cervicalgia 11/27/2008 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 Spina bifida with hydrocephalus 06/09/2006 Overview: ICD10 Diagnosis Term 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 Marina Utility documented as of this encounter (statuses as of 09/04/2019) Resolved Problems Problem Noted Date Resolved Date S/P total hysterectomy and bilateral salpingo-oophorectomy 0 05/27/2016 05/27/2016 Anemia 03/25/2016 05/27/2016 Thrombocytopenia 03/25/2016 05/27/2016 Weight loss 01/23/2015 05/27/2016 Diarrhea 01/23/2015 05/27/2016 Lymphadenopathy 01/23/2015 05/27/2016 Insomnia 06/27/2013 05/27/2016 Irregular menstrual cycle 12/17/2006 05/27/2016 Pleurisy 12/09/2005 05/27/2016 Overview: ICD10 Diagnosis Term Porter Marina Utility Cervicitis and endocervicitis 12/09/2005 05/27/2016 Pain in limb 12/09/2005 05/27/2016 documented as of this encounter (statuses as of 09/04/2019) Immunizations Name Administration Dates Next Due Hep [...] Treatment Date Type Specialty Care Team Description 11/20/2019 Office Visit Psychiatry Jairon Hernandez MD [address] [place] [phone] 08/28/2020 Office Visit Cardiology No Hearn M D [address] [place] [address] Health Maintenance Due Date Last Done Comments [...] in this encounter Insurance Payer Benefit Plan Subscriber ID Effective Phone Address Typ e / Group Dates MEDICARE MEDICARE PART xxxxxxxxxxx 2018-Christy [phone] [address] Medicare A & B nt [id number] [place]LIS SANCHEZ [id number] AGENCY AGENCY [id number] 2019-Pres Agenc y GENERIC GENERIC ent documented as of this encounter Advance Directives Type Date Recorded Patient Mutton Puncher Explanati on Advance Directives and Living 01/14/2015 2:00 PM Will Power of Yarn Sorter 08/08/2018 2:03 PM
--- OUTSIDE RECORDS SUMMARY | 2019-09-25 17:14 | XMS REPORT | Summary of Care ---
:1965 Author Organization [facility] Address [address] [place] [address] Care Team Providers Name Role Phone Vianca Barrera MD Primary Care Provider Reason for Visit Reason Comments Hypertension Encounter Details Date Type Department Care Team Description 08/28/2019 Telemedicine Visit [facility] No Hearn Essenti al hypertension (Primary Dx); Cardiology- MD Obesity (BMI 30-39.9); [address], [address] [place] [address] [phone] Allergies Active Allergy Reactions Severity Noted Date Comments Iodine And Iodide Containing Products Hives 09/2012 documented as of this encounter (statuses as of 08/28/2019) Medications Medication Sig Dispensed Refills Start Date [...] immunodeficiency virus MORNING infection), Hypertension, unspecified type escitalopram oxalate 5 Take 1 30 tablet [...] mouth at bedtime as needed for Insomnia. losartan 50 mg Take 1 30 tablet 3 11/21/2018 Disc ontinued tabletIndications: tablet by 0 Essential hypertension mouth daily. 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 Spina bifida with hydrocephalus 06/09/2006 Overview: ICD10 Diagnosis 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 documented as of this encounter (statuses as of 08/28/2019) Resolved Problems Problem Noted Date Resolved Date S/P total hysterectomy and bilateral salpingo-oophorectomy 0 05/27/2016 05/27/2016 Anemia 03/25/2016 05/27/2016 Thrombocytopenia 03/25/2016 05/27/2016 Weight loss 01/23/2015 05/27/2016 Diarrhea 01/23/2015 05/27/2016 Lymphadenopathy 01/23/2015 05/27/2016 Insomnia 06/27/2013 05/27/2016 Irregular menstrual cycle 12/17/2006 05/27/2016 Pleurisy 12/09/2005 05/27/2016 Overview: ICD10 Diagnosis 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 She has been feeling whole body swelling, associated with mild dyspnea on exertion. Sleeps on 2-3 pillows due to back issue. Snores loudly and wakes up at night. Feeling tired chronically. Gained 60 lbs in the past 3 years. Last visit we added lasix. Her edema has improved significantly. BP is controlled. ECHO normal. Sleep study negative. Since last visit she has improved on her diet and lost 15 lbs. Still with mild swelling. She bikes. Review of Systems: General: (-) fever, (-) chills, (+) weight change, (-) dizziness, (+) fatigue Skin: (-) rash HEENT: (-) headache, (-) change in vision Neck: (-) difficulty swallowing Heme: negative Resp: (-) cough, (-) dyspnea on exertion Cardio: (-) chest pain, (-) palpitations, (-) syncope GI: (-) vomiting, (-) diarrhea : negative Endo: (-) diabetes, (-) thyroid disease Neuro: (-) numbness, (-) tingling, (-) weakness Back: (-) pain RENU: (-) muscle pain, (-) claudication Psych: (-) anxiety, (-) depression Past Medical History: Past Medical History: Diagnosis Date Asymptomatic human immunodeficiency virus (HIV) infection status Closed fracture of unspecified part of vertebral column without mention of spinal cord injury Current Medications: Current Outpatient Medications Medication Sig Dispense Refill LORazepam 2 mg tablet Take 1 tablet by mouth 2 (two) times daily as needed (anxiety). 60 tablet 2 zolpidem 10 mg tablet Take 1 tablet by mouth at bedtime as needed for Insomnia. 30 tablet 2 escitalopram oxalate 5 mg tablet Take 1 tablet by mouth daily. 30 tablet 0 mirtazapine 15 mg tablet Take 1 tablet by mouth at bedtime. 30 tablet 0 traZODone 100 mg tablet Take 2 tablets by mouth at bedtime. 60 tablet 0 AMLODIPINE 10 mg tablet TAKE ONE TABLET BY MOUTH EVERY MORNING 30 tablet 2 acetaminophen-codeine 300-30 mg tablet Take 1 tablet by mouth every 4 (four) hours as needed forPain (scale 4-6). 90 tablet 5 pantoprazole 40 mg EC tablet TAKE ONE TABLET BY MOUTH TWICE A DAY 60 tablet 3 TRIUMEQ 600-50-300 mg per tablet TAKE ONE TABLET BY MOUTH EVERY MORNING 30 tablet 4 IBUPROFEN 800 mg tablet TAKE ONE TABLET BY MOUTH THREE TIMES A DAY WITH MEALS 90 tablet 0 amitriptyline 75 mg tablet Take 1 tablet by mouth at bedtime. 30 tablet 5 tiZANidine 2 mg capsule Take 1 capsule [...] No current facility-administered medications for this visit. Social History: Social History Socioeconomic History Marital status: Spouse name: Not on file Number of children: Not on file Years of education: Not on file Highest education level: Not on file Occupational History Not on file Social Needs Financial resource strain: Not on file Food insecurity: Worry: Not on file Inability: Not on file Transportation needs: Medical: Not on file Non-medical: Not on file Tobacco Use Smoking status: Never Smoker Smokeless tobacco: Never Used Substance and Sexual Activity Alcohol use: No Alcohol/week: 0.0 standard drinks Drug use: No Sexual activity: Yes Partners: Male Lifestyle Physical activity: Days per week: Not on file Minutes per session: Not on file Stress: Not on file Relationships Social connections: Talks on phone: Not on file Gets together: Not on file Attends baptism service: Not on file Active member of club or organization: Not on file Attends meetings of clubs or organizations: Not on file Relationship status: Not on file Intimate partner violence: Fear of current or ex partner: Not on file Emotionally abused: Not on file Physically abused: Not on file Forced sexual activity: Not on file Other Topics Concern Not on file Social History Narrative Not on file Family History Family History Problem Relation Age of Onset Breast Cancer Paternal Aunt Breast Cancer Paternal Grandmother Physical Examination: Constitutional: Alert and in no distress Respiratory: Breathing comfortably Neurology: Answers questions appropriately Cardiovascular testing: EKG: Normal sinus rhythm. Non-specific T wave abnormality. Prolonged QT. ECHO Ejection Fraction = 55-60%. Diastolic function is normal. The left ventricular wall motion is normal. Estimated RA pressure is 0-5 mmHg. Insufficient Tricuspid regurgitation jet to estimate RVSP. Assessment/Plan: ICD-10-CM ICD-9-CM 1. Essential hypertension I10 401.9 2. Obesity (BMI 30-39.9) E66.9 278.00 3. Swelling R60.9 782.3 Edema--Seems to be stable. Advised to continue weight loss. Will continue lasix 20 mg daily + KCL 20mEq daily. Low salt diet. HTN--Now well controlled with amlodipine. Patient was counseled for lifestyle modifications including: diet, exercise and weight loss RTC 12 months Telehealth service ? Verbal consent obtained from patient Audrey Mata for telehealth sevice provided ? My location: [facility] cardiology clinic ? Patient location: Home ? Format: Communication with patient was conducted via Telephone due to patient unable to obtain video call option ? A total of 15 minutes spent on the telephone with the patient No Hearn MD, FACC, SUKHJINDER Triage Licensed Practical Nurse, Division of Cardiology [facility] documented in this encounter Plan of Treatment Date Type Specialty Care Team Description 11/20/2019 Office Visit Psychiatry Jairon Hernandez MD [address] [place], [place] [address]. [place], [place] [phone] Health Maintenance Due Date Last Done Comments [...] filedocumented in this encounter Visit Diagnoses Diagnosis Essential hypertension - Primary Unspecified essential hypertension Obesity (BMI 30-39.9) Obesity, unspecified Swelling Edema documented in this encounter Insurance Payer Benefit Plan Subscriber ID Effective Phone Address Typ e / Group Dates MEDICARE MEDICARE PART xxxxxxxxxxx 2018-Prese [phone] [address] X Medicare A & B nt 82 [id number] ARELIS SANCHEZ [phone] AGENCY AGENCY [id number] 2019-Pres Agenc y GENERIC GENERIC ent documented as of this encounter Advance Directives Type Date Recorded Patient Brush Polisher Explanati on Advance Directives and Living 01/14/2015 2:00 PM Will Power of Tv Technician 08/08/2018 2:03 PM
--- OUTSIDE RECORDS SUMMARY | 2019-09-25 17:14 | XMS REPORT | Clinical Summary ---
:1965 Author Organization [facility] Address [address] [place] [address] Care Team Providers Name Role Phone Vianca [...] TWICE (human immunodeficiency A DAY virus infection) acetaminophen-codeine Take 1 tablet 90 tablet 5 [...] mg Take 1 tablet 60 tablet 2 08/21/2019 Active tabletIndications: by mouth 2 Generalized anxiety (two) times disorder with panic daily as needed attacks (anxiety). zolpidem 10 mg Take 1 tablet 30 tablet 2 08/21/2019 Active tabletIndications: by mouth at Primary insomnia bedtime as needed for Insomnia. 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 Resolved Problems Problem Noted Date Resolved Date S/P total hysterectomy and bilateral salpingo-oophorectomy 0 05/27/2016 05/27/2016 Anemia 03/25/2016 05/27/2016 Thrombocytopenia 03/25/2016 05/27/2016 Weight loss 01/23/2015 05/27/2016 Diarrhea 01/23/2015 05/27/2016 Lymphadenopathy 01/23/2015 05/27/2016 Insomnia 06/27/2013 05/27/2016 Irregular menstrual cycle 12/17/2006 05/27/2016 Pleurisy 12/09/2005 05/27/2016 Overview: ICD10 Diagnosis Term 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 Utility Cervicitis and endocervicitis 12/09/2005 05/27/2016 Pain in limb 12/09/2005 05/27/2016 Encounters Date Type Specialty Care Team Description 06/12/2019 Refill Infectious Disease Gilson Barrera, Refi ll Request 06/07/2019 Group Care Worker Visit Phlebotomy Gilson Barrera, Sympto matic HIV MD infection [facility] 06/07/2019 Office Visit Infectious Disease Gilson Barrera, Symp tomatic HIV infection (Primary Dx); Need for vaccin ation 05/22/2019 Orders Only Doctor Unassigned, [place] from Last 3 Months Immunizations Name Administration [...] Comments Blood Pressure 132/89 06/07/2019 11:01 AM DIGITAL MEDIA INTERN Pulse 103 06/07/2019 11:01 AM DIGITAL MEDIA INTERN Temperature 36.9 C (98.5 F) 06/07/2019 11:01 AM DIGITAL MEDIA INTERN Respiratory Rate 16 06/07/2019 11:01 AM DIGITAL MEDIA INTERN Oxygen Saturation 100% 02/22/2019 11:30 AM CDT Inhaled Oxygen Concentration - - Weight 110.3 kg (243 lb 1.6 oz) 06/07/2019 11:01 AM DIGITAL MEDIA INTERN Height 171.5 cm (5' 7.5") 06/07/2019 11:01 AM DIGITAL MEDIA INTERN Body Mass Index 37.51 06/07/2019 11:01 AM DIGITAL MEDIA INTERN Plan of Treatment Date Type Specialty Care Team Description 08/22/2019 Telemedicine Visit Infectious Disease [facility] [address] [place] [phone] 08/28/2019 Office Visit Cardiology No Hearn M D [address] [place] [address] [place] [address] [phone] Health Maintenance Due Date Last Done Comments [...] Symptomatic HIV Results for this UNCONJUGATED/BILI AM DIGITAL MEDIA INTERN infection procedure are in CONJUG the results section. CBC WITH DIFFERENTIAL Routine 06/07/2019 11:35 Symptomatic HIV Results for this AM DIGITAL MEDIA INTERN infection procedure are i n the results section. CBC WITH DIFFERENTIAL Routine 06/07/2019 11:35 Symptomatic HIV Results for this AM DIGITAL MEDIA INTERN infection procedure are i n the results section. COMP. METABOLIC PANEL Routine 06/07/2019 11:35 Symptomatic HIV Results for this (05292) AM DIGITAL MEDIA INTERN infection procedure are i n the results section. HIV1 BY REAL-TIME PCR Routine 06/07/2019 11:35 Symptomatic HIV Results for this QUANT AM DIGITAL MEDIA INTERN infection procedure are i n the results section. CD4 SUBSET ASSAY Routine 06/07/2019 11:35 Symptomatic HIV Resu lts for this AM DIGITAL MEDIA INTERN infection procedure are i n the results section. FLU VACC ([id number]), Routine 06/07/2019 11:04 Need for vaccin ation 6+ MONTHS, IM, QUAD AM DIGITAL MEDIA INTERN CONSENT TO CONTACT Routine 05/22/2019 2:19 Resul ts for this FOR VOLUNTARY PM DIGITAL MEDIA INTERN procedure are in RESEARCH the results section. CONSENT/REFUSAL FOR Routine 05/22/2019 1:50 DIAGNOSIS AND PM DIGITAL MEDIA INTERN TREATMENT ASSIGNMENT OF Routine 05/22/2019 1:50 BENEFITS PM DIGITAL MEDIA INTERN from Last 3 Months Results CBC WITH DIFFERENTIAL (06/07/2019 11:35 AM DIGITAL MEDIA INTERN) WBC 5.65 4.30 - 11.10 [facility] [...] SERVICES LG GRAN LYMPHS Moderate (A) Rare [facility] Specimen Blood Performing Organization Address City/State/[facility] Phone Number [facility] CLIA: [id number], [address] [place], [place] [address] [facility] HIV1 BY REAL-TIME PCR QUANT (06/07/2019 11:35 AM DIGITAL MEDIA INTERN) HIV 1 by Real-Time Not Detected Not Detected [facility] PCR SERVICES Specimen Blood Narrative Performed At HIV-1 Real-Time PCR [facility] Interpretative data: [employer] m2000 Real Time HIV-1 reverse machine quilt stuffer-polymerase chain reaction (RT-PCR) assay is used. It [...] quantification. Performing Organization Address City/State/Zipcode Phone Number [facility] CLIA: [id number], [address] [place], [place] [address] [facility] CD4 SUBSET ASSAY (06/07/2019 11:35 AM DIGITAL MEDIA INTERN) Pathologist Sig nature CD4 % 33 31 - 60 % [facility] CD4 Absolute 1,010 410-1,590 Cells/L [facility] LEONARDO Specimen Blood Performing Organization Address City/State/Zipcode Phone Number [facility] CLIA: [id number], [address] [place], [place] [address] [facility] COMP. METABOLIC PANEL ([id number]) (06/07/2019 11:35 AM DIGITAL MEDIA INTERN) Pathologist Sig nature NA 139 135 - 145 [facility] mmol/L SERVICES K 4.5 3.5 - 5.0 [facility] mmol/L SERVICES CL 102 98 - 108 mmol/L [facility] CO2 TOTAL 25 23 - 31 mmol/L [facility] AGAP 12 2 - 16 [facility] BUN 7 7 - 23 mg/dL [facility] GLUCOSE 92 70 - 110 mg/dL [facility] CREATININE 0.74 0.50 - 1.04 [facility] mg/dL SERVICES TOTAL BILI 0.3 0.1 - 1.1 mg/dL [facility] CALCIUM 9.2 8.6 - 10.6 [facility] mg/dL SERVICES T PROTEIN 8.3 (H) 6.3 - 8.2 g/dL [facility] ALBUMIN 4.2 3.5 - 5.0 g/dL [facility] ALK PHOS 80 34 - 122 U/L [facility] ALTv 28 5 - 35 U/L [facility] AST(SGOT) 29 13 - 40 U/L [facility] eGFR Calculation 82.1 mL/min/1.73m2 [facility] (Non- SERVICES [place]) eGFR Calculation 99.5 mL/min/1.73m2 [facility] () SERVICES Specimen Blood Narrative Performed At Association of Glomerular Filtration Rate (GFR) and St aging [facility] of Kidney Disease* [...] . Performing Organization Address City/State/Zipcode Phone Number [facility] CLIA: [id number], [address] [place] [phone] [facility] BILI UNCONJUGATED/BILI CONJUG (06/07/2019 11:35 AM DIGITAL MEDIA INTERN) Pathologist Sig nature BILI CONJ 0.0 0.0 - 0.3 mg/dL [facility] BILI UNCON 0.2 0.1 - 1.1 mg/dL [facility] Specimen Blood Performing Organization Address City/State/Zipcode Phone Number [facility] CLIA: [id number], [address] [place] [address] [facility] CONSENT TO CONTACT FOR VOLUNTARY RESEARCH (05/22/2019 2:19 PM DIGITAL MEDIA INTERN) Pathologist Sig nature Consent To Contact For Voluntary Yes [facility] Research Specimen Performing Organization Address City/State/GetSocialcode Phone Number [facility] CONSENT/REFUSAL FOR DIAGNOSIS AND TREATMENT (05/22/2019 1:50 PM DIGITAL MEDIA INTERN) Specimen Performing Organization Address City/State/Zipcode Phone Number [facility] ASSIGNMENT OF BENEFITS (05/22/2019 1:50 PM DIGITAL MEDIA INTERN) Specimen Performing Organization Address City/State/Zipcode Phone Number [facility] from Last 3 Months Insurance Payer Benefit Plan / Subscriber ID Effective Dates Phone Addre ss Type Group MEDICARE MEDICARE PART xxxxxxxxxxx 2018-Darby [phone] Medicare A & B t 2 [id number] AREL[place] SANCHEZ [id number] Advance Directives Type Date Recorded Patient Toeing Stockings Explanati on Advance Directives and Living 01/14/2015 2:00 PM Will Power of Drying Oven Tender 08/08/2018 2:03 PM
--- OUTSIDE RECORDS SUMMARY | 2019-09-25 17:15 | XMS REPORT | Summary of Care ---
:1965 Author Organization [facility] - [address] [address] Care Team Providers Name Role Phone Vianca Barrera MD Primary Care Provider Reason for Visit Reason Comments Refill Request Encounter Details Date Type Department Care Team Description 09/13/2019 Refill [facility] Infectious Jes Barrera MD Refill Request Diseases- [place] [id number] [place], [place] [id number] [place] [address] Allergies Active Allergy Reactions Severity Noted Date Comments Iodine And Iodide Containing Products Hives 09/2012 documented as of this encounter (statuses as of 09/14/2019) Medications Medication Sig Dispensed Refills Start Date [...] MOUTH THREE TIMES A DAY WITH MEALS acetaminophen-codeine Take 1 90 tablet 5 06/07/2019 Active 300-30 mg tablet by tabletIndications: mouth every Symptomatic HIV 4 (four) infection hours as needed for Pain (scale 4-6). LORazepam 2 mg Take 1 60 tablet [...] (human MOUTH EVERY immunodeficiency virus MORNING infection) PANTOPRAZOLE 40 mg EC TAKE ONE 60 tablet 2 09/14/2019 Active tabletIndications: HIV TABLET BY (human MOUTH TWICE immunodeficiency virus A DAY infection) mirtazapine 15 mg Take 1 30 tablet 1 09/13/2019 A ctive tabletIndications: tablet by Primary insomnia, mouth at Generalized anxiety bedtime. disorder with panic attacks, Current moderate episode of major depressive disorder, unspecified whether recurrent escitalopram oxalate 5 Take 1 30 tablet 1 09/13/2019 Active mg tabletIndications: tablet by Generalized anxiety mouth daily. disorder with panic attacks, Current moderate episode of major depressive disorder, unspecified whether recurrent traZODone 100 mg Take 2 60 tablet 1 09/13/2019 Ac tive tabletIndications: tablets by Primary insomnia mouth at bedtime. pantoprazole 40 mg EC TAKE ONE 60 tablet 3 05/03/2019 02 Discontinued tabletIndications: HIV TABLET BY 0 (human MOUTH TWICE immunodeficiency virus A DAY infection) documented as of this encounter (statuses as of 09/14/2019) Active Problems Problem Noted Date Tendonitis of wrist, right 02/24/2017 Hypertension 02/24/2017 Bronchitis 02/24/2017 Vertigo 08/12/2016 Knee pain 08/12/2016 Acute cystitis without hematuria 05/27/2016 S/P JEOVANY (total abdominal hysterectomy) 05/27/2016 Status post bilateral salpingectomy 05/27/2016 Obesity (BMI 30-39.9) 03/26/2016 HIV (human immunodeficiency virus infection) 5 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 06/27/2013 Cervicalgia 11/27/2008 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 Spina bifida with hydrocephalus 06/09/2006 Overview: ICD10 Diagnosis 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 documented as of this encounter (statuses as of 09/14/2019) Resolved Problems Problem Noted Date Resolved Date S/P total hysterectomy and bilateral salpingo-oophorectomy 0 05/27/2016 05/27/2016 Anemia 03/25/2016 05/27/2016 Thrombocytopenia 03/25/2016 05/27/2016 Weight loss 01/23/2015 05/27/2016 Diarrhea 01/23/2015 05/27/2016 Lymphadenopathy 01/23/2015 05/27/2016 Insomnia 06/27/2013 05/27/2016 Irregular menstrual cycle 12/17/2006 05/27/2016 Pleurisy 12/09/2005 05/27/2016 Overview: ICD10 Diagnosis 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 [place], [place] [phone] 08/28/2020 Office Visit Cardiology No Hearn M D [address] [place], [place] [address] 15 Health Maintenance Due Date Last Done [...] X Medicare A & B nt 82 [id number] [place] [id number] AGENCY AGENCY [id number] 2019-Pres Agenc y GENERIC GENERIC ent documented as of this encounter Advance Directives Type Date Recorded Patient Brand Leader Explanati on Advance Directives and Living 01/14/2015 2:00 PM Will Power of Head Sawyer Automatic 08/08/2018 2:03 PM
--- OUTSIDE RECORDS SUMMARY | 2019-09-25 17:15 | XMS REPORT | Clinical Summary ---
:1965 Author Organization [facility] Address [address] [place] [address] Care Team Providers Name Role Phone Vianca [...] by mouth 3 Cervicalgia (three) times daily. amitriptyline 75 mg Take 1 tablet 30 tablet 5 11/23/2018 Active tabletIndications: HIV by mouth at (human immunodeficiency bedtime. virus infection) IBUPROFEN 800 mg tablet TAKE ONE TABLET 90 tablet 0 03/13/2019 Active BY MOUTH THREE TIMES A DAY WITH MEALS pantoprazole 40 mg EC TAKE ONE TABLET 60 tablet 3 05/03/2019 Active tabletIndications: HIV BY MOUTH TWICE (human immunodeficiency A DAY virus infection) acetaminophen-codeine Take 1 tablet 90 tablet 5 06/07/2019 Active 300-30 mg by mouth every tabletIndications: 4 (four) hours Symptomatic HIV as needed for infection Pain (scale 4-6). LORazepam 2 mg Take 1 tablet 60 tablet 2 08/21/2019 Active tabletIndications: by mouth 2 Generalized anxiety (two) times disorder with panic daily as needed attacks (anxiety). zolpidem 10 mg Take 1 tablet 30 tablet 2 08/21/2019 Active tabletIndications: by mouth at Primary insomnia bedtime as needed for Insomnia. AMLODIPINE 10 mg TAKE ONE TABLET 30 tablet 1 09/04/2019 Active tabletIndications: HIV BY MOUTH EVERY (human immunodeficiency MORNING virus infection), Hypertension, unspecified type TRIUMEQ 600-50-300 mg TAKE ONE TABLET 30 tablet 3 09/04/2019 Active per tabletIndications: BY MOUTH EVERY HIV (human MORNING immunodeficiency virus infection) mirtazapine 15 mg Take 1 tablet 30 tablet 1 09/13/2019 Active tabletIndications: by mouth at Primary insomnia, bedtime. Generalized anxiety disorder with panic attacks, Current moderate episode of major depressive disorder, unspecified whether recurrent escitalopram oxalate 5 Take 1 tablet 30 tablet 1 09/13/2019 Active mg tabletIndications: by mouth daily. Generalized anxiety disorder with panic attacks, Current moderate episode of major depressive disorder, unspecified whether recurrent traZODone 100 mg Take 2 tablets 60 tablet 1 09/13/2019 Active tabletIndications: by mouth at Primary insomnia bedtime. 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 Resolved Problems Problem Noted Date Resolved Date S/P total hysterectomy and bilateral salpingo-oophorectomy 0 05/27/2016 05/27/2016 Anemia 03/25/2016 05/27/2016 Thrombocytopenia 03/25/2016 05/27/2016 Weight loss 01/23/2015 05/27/2016 Diarrhea 01/23/2015 05/27/2016 Lymphadenopathy 01/23/2015 05/27/2016 Insomnia 06/27/2013 05/27/2016 Irregular menstrual cycle 12/17/2006 05/27/2016 Pleurisy 12/09/2005 05/27/2016 Overview: ICD10 Diagnosis 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 Cervicitis and endocervicitis 12/09/2005 05/27/2016 Pain in limb 12/09/2005 05/27/2016 Encounters Date Type Specialty Care Team Description 09/13/2019 Refill Infectious Disease Gilson Barrera Refill Request MD Vianca 09/04/2019 Refill Infectious Disease Gilson Barrera Refill Yossi Coley MD 08/28/2019 Telemedicine Visit Cardiology No Hearn Essenti al hypertension (Primary Dx); Obesity (BMI 30 -39.9); Swelling 08/22/2019 Telemedicine Visit Infectious Disease Pedro Chavarria PA from Last 3 Months Immunizations Name Administration [...] Comments Blood Pressure 132/89 06/07/2019 11:01 AM DIRECTOR GEOPHYS[facility] LABORATORY Pulse 103 06/07/2019 11:01 AM DIRECTOR GEOPHYSICAL LABORATORY Temperature 36.9 C (98.5 F) 06/07/2019 11:01 AM DIRECTOR GEOPHYSICAL LABORATORY Respiratory Rate 16 06/07/2019 11:01 AM DIRECTOR GEOPHYSICAL LABORATORY Oxygen Saturation 100% 02/22/2019 11:30 AM CDT Inhaled Oxygen Concentration - - Weight 110.3 kg (243 lb 1.6 oz) 06/07/2019 11:01 AM DIRECTOR GEOPHYSICAL LABORATORY Height 171.5 cm (5' 7.5") 06/07/2019 11:01 AM DIRECTOR GEOPHYSICAL LABORATORY Body Mass Index 37.51 06/07/2019 11:01 AM DIRECTOR GEOPHYSICAL LABORATORY Plan of Treatment Date Type Specialty Care Team Description 08/28/2020 Office Visit Cardiology No Hearn M D [address] [place] [address] 15 Health Maintenance Due Date Last Done Comments PAP SMEAR 11/26/2009 11/26/2006 COLONOSCOPY 2016 Zoster Recombinant Vaccine (SHINGRIX) 2016 (1 of 2) Breast Cancer Screening (MAMMOGRAM) 04/13/2018 04/13/2017, 05/07/2011 PNEUMOCOCCAL 0-64 YEARS COMBINED 08/25/2019 08/24/2018 SERIES (2 of 3 - PCV13) DTaP,Tdap,and Td Vaccines (2 - Td) 08/24/2028 08/24/2018 INFLUENZA VACCINE Completed 06/07/2019, 08/24/2018, 03/31/2016 Results Not on filefrom Last 3 Months Insurance Payer Benefit Plan Subscriber ID Effective Phone Address Typ e / Group Dates MEDICARE MEDICARE PART xxxxxxxxxxx 2018-Prese [phone] 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
--- NOTE | 2019-09-25 17:59 | ER ---
Nurse's Notes [facility] Name: Audrey Velasquez Age: 54 yrs Sex: Female : 1965 Arrival Date: 09/25/2019 Time: 17:11 Bed 7 Private MD: Diagnosis: Pain in right knee;Effusion, right knee Presentation: 09/24 17:25 Chief complaint: Patient states: Bilateral knee pain and swelling for 2 weeks. No ll1 trauma or falls. Right knee worse than left. Coronavirus screen: Proceed with normal triage. Patient denies a cough. Patient denies shortness of breath or difficulty breathing. Patient denies measured and/or subjective temperature greater than 100.4F prior to today's visit. Patient denies travel on a cruise ship or to a country the [facility] currently lists as an affected area. Patient denies contact with known and/or suspected case of COVID-19. Ebola Screen: Patient denies travel to an Ebola-affected area in the 21 days before illness onset. Initial Sepsis Screen: Does the patient meet any 2 criteria? No. Patient's initial sepsis screen is negative. Does the patient have a suspected source of infection? No. Patient's initial sepsis screen is negative. Risk Assessment: Do you want to hurt yourself or someone else? Patient reports no desire to harm self or others. Onset of symptoms was September 11, 2019. 17:25 Method Of Arrival: Wheelchair ll1 17:25 Acuity: DWIGHT 4 ll1 Historical: - Allergies: 17:27 Iodine; ll1 17:27 SHELLFISH; ll1 - PMHx: 17:27 Hypertension; HIV; ll1 - Social history:: Smoking status: Patient/guardian denies using tobacco, the patient reports quitting approximately 5 years ago, Patient/guardian denies using alcohol, street drugs, tobacco products. - Family history:: not pertinent. - Hospitalizations: : No recent hospitalization is reported. Screenin:30 Abuse screen: Denies threats or abuse. Denies injuries from another. Nutritional sv screening: No deficits noted. Tuberculosis screening: No symptoms or risk factors identified. Fall Risk None identified. Assessment: 17:38 General: Appears in no apparent distress. comfortable, well developed, Behavior is sv calm, cooperative, appropriate for age. Pain: Complains of pain in left and right knee Pain currently is 8 out of 10 on a pain scale. Neuro: Level of Consciousness is awake, alert, obeys commands, Oriented to person, place, time, situation, Moves all extremities. Full function Gait is steady. Respiratory: Airway is patent Respiratory effort is even, unlabored, Respiratory pattern is regular, symmetrical. Derm: Skin is pink, warm \T\ dry. 18:25 Reassessment: Patient appears in no apparent distress at this time. No changes from sv previously documented assessment. Patient and/or family updated on plan of care and expected duration. Pain level reassessed. Patient is alert, oriented x 3, equal unlabored respirations, skin warm/dry/pink. Vital Signs: 17:25 BP 142 / 93; Pulse 73; Resp 18; Temp 97.0; Pulse Ox 99% ; Pain 8/10; ll1 18:20 BP 147 / 75; Pulse 73; Resp 16; Pulse Ox 96% ; sv ED Course: 17:11 Patient arrived in ED. am2 17:20 Justin Linder MD is Attending Physician. rn 17:26 Triage completed. ll1 17:28 Arm band placed on Patient placed in an exam room, on a stretcher. ll1 17:29 Valery Quiros RN is Primary Nurse. sv 17:30 Patient has correct armband on for positive identification. Bed in low position. Call sv light in reach. Pulse ox on. NIBP on. 17:38 Door closed. Warm blanket given. Head of bed elevated. sv 17:49 XRAY Knee RIGHT 3 view In Process Unspecified. EDMS 18:25 No provider procedures requiring assistance completed. Patient did not have IV access sv during this emergency room visit. Administered Medications: 18:25 Drug: Motrin 800 mg Route: PO; sv 18:25 Follow up: Response: Medication administered at discharge. sv Outcome: 17:59 Discharge ordered by . rn 18:26 Discharged to home ambulatory. sv 18:26 Condition: stable 18:26 Discharge instructions given to patient, Instructed on discharge instructions, follow up and referral plans. Demonstrated understanding of instructions, follow-up care. 18:26 Patient left the ED. sv Signatures: Dispatcher [employer] EDMS Valery Quiros RN RN Justin Linder MD MD rn Moreno, Amanda am2 Priscila Mckeon RN RN ll1
--- NOTE | 2019-09-25 18:00 | EDPHYS ---
Physician Documentation [facility] Name: Audrey Velasquez Age: 54 yrs Sex: Female : 1965 Arrival Date: 09/25/2019 Time: 17:11 Bed 7 Private MD: ED Physician Justin Linder HPI: 09/24 17:43 This 54 yrs old Female presents to ER via Wheelchair with complaints of knee pain rn and swelling. 17:43 The patient presents with pain, swelling. The complaints affect the right knee. Onset: rn The symptoms/episode began/occurred 2 week(s) ago. Modifying factors: The symptoms are alleviated by elevating leg, the symptoms are aggravated by movement, weight bearing, bending knee. Severity of symptoms: At their worst the symptoms were mild, in the emergency department the symptoms are unchanged. The patient has experienced similar episodes in the past. The patient has not recently seen a physician. Reports chronic problems with left knee following injury, now having right hip and right knee pain and intermittent swelling. Notices more swelling and achiness after bike riding or exercise, stays active. No hx of gout. No fever. No drug use. Improves with leg elevation and rest. . Historical: - Allergies: 17:27 Iodine; ll1 17:27 SHELLFISH; ll1 - PMHx: 17:27 Hypertension; HIV; ll1 - Social history:: Smoking status: Patient/guardian denies using tobacco, the patient reports quitting approximately 5 years ago, Patient/guardian denies using alcohol, street drugs, tobacco products. - Family history:: not pertinent. - Hospitalizations: : No recent hospitalization is reported. ROS: 17:43 Constitutional: Negative for fever, chills, and weight loss, Neck: Negative for injury, rn pain, and swelling, Cardiovascular: Negative for chest pain, palpitations, and edema, Respiratory: Negative for shortness of breath, cough, wheezing, and pleuritic chest pain, Abdomen/GI: Negative for abdominal pain, nausea, vomiting, diarrhea, and constipation, MS/Extremity: + right knee pain and swelling Skin: Negative for injury, rash, and discoloration, Neuro: Negative for headache, weakness, numbness, tingling, and seizure. Exam: 17:43 Constitutional: This is a well developed, well nourished patient who is awake, alert, rn and in no acute distress. Skin: Warm, dry with normal turgor. Normal color with no rashes, no lesions, and no evidence of cellulitis. MS/ Extremity: Pulses equal, no cyanosis. Neurovascular intact. Full, normal range of motion. Equal circumference. Mild right suprapatellar effusion, no erythema or warmth. Neuro: Awake and alert, GCS 15, Motor strength 5/5 in all extremities. Sensory grossly intact. Vital Signs: 17:25 BP 142 / 93; Pulse 73; Resp 18; Temp 97.0; Pulse Ox 99% ; Pain 8/10; ll1 18:20 BP 147 / 75; Pulse 73; Resp 16; Pulse Ox 96% ; sv MDM: 17:20 Patient medically screened. rn 17:43 Differential diagnosis: tendonitis, arthritis, overuse, ligamentous strain. Data rn reviewed: vital signs, nurses notes. 17:56 Test interpretation: by ED physician or midlevel provider: plain radiologic studies. rn Test interpretation: by ED physician or midlevel provider: plain radiologic studies, XRAY right knee negative for acute fracture/dislocation. . Counseling: I had a detailed discussion with the patient and/or guardian regarding: the historical points, exam findings, and any diagnostic results supporting the discharge/admit diagnosis, radiology results, the need for outpatient follow up, to return to the emergency department if symptoms worsen or persist or if there are any questions or concerns that arise at home. Special discussion: I discussed with the patient/guardian in detail that at this point there is no indication for admission to the hospital. It is understood, however, that if the symptoms persist or worsen the patient needs to return immediately for re-evaluation. Further emergent ED testing is not indicated at this point in time. I discussed with the patient/guardian in detail the need to arrange with the PCP or specialist further outpatient testing, MRI. ED course: Most likely intermittent pain from overuse and compensation for chronic left knee pain, also having right hip pain intermittently. No acute findings on xray, will dc home with continuation of anti-inflammatories and rest, compression brace, and MRI as outpt. . 09/24 17:29 Order name: XRAY Knee RIGHT 3 view rn Administered Medications: 18:25 Drug: Motrin 800 mg Route: PO; sv 18:25 Follow up: Response: Medication administered at discharge. sv Disposition: 09/25/19 17:59 Discharged to Home. Impression: Pain in right knee, Effusion, right knee. - Condition is Stable. - Discharge Instructions: Knee Effusion, Musculoskeletal Pain, Knee Pain. - Medication Reconciliation Form, Thank You Letter, Antibiotic Education, Prescription Opioid Use form. - Follow up: Private Physician; When: As needed; Reason: Recheck today's complaints, Re-evaluation by your physician. - Problem is an ongoing problem. - Symptoms are unchanged. Signatures: Dispatcher [employer] EDValery Perez RN RN Justin Koroma MD MD rn Lewis, Lynsay, RN RN ll1 Corrections: (The following items were deleted from the chart) 18:26 17:59 09/25/2019 17:59 Discharged to Home. Impression: Pain in right knee; Effusion, sv right knee. Condition is Stable. Forms are Medication Reconciliation Form, Thank You Letter, Antibiotic Education, Prescription Opioid Use. Follow up: Private Physician; When: As needed; Reason: Recheck today's complaints, Re-evaluation by your physician. Problem is an ongoing problem. Symptoms are unchanged. rn
[2019-09-25] MEDS ORDERED: IBUPROFEN 400 MG TAB ONE (18:21)
[2019-09-25 19:16] VITALS: TEMP 97
[2019-09-25 19:17] VITALS: BP 147/75; O2SAT 96
--- NOTE | 2019-09-25 19:35 | RAD REPORT ---
EXAM DESCRIPTION: RAD - Knee Right 3 View - 09/25/2019 5:49 pm CLINICAL HISTORY: Pain;Swelling COMPARISON: No comparisons FINDINGS: No fracture, dislocation or periosteal reaction.Small joint effusion is present. There is spurring at the quadriceps attachment the patella. No joint space narrowing. No foreign body or other soft tissue abnormality. IMPRESSION: Small joint effusion and minimal degenerative spurring involving the patella. No acute bone findings seen. Clinical concerns for internal derangement or occult bony injury could be further assessed with MR im aging.
== END 2019-09-25 18:26 | disposition home or self-care (01) ==
LOC: ER 17:03
DX: M25.461 Effusion, right knee (principal); I10 Essential (primary) hypertension; Z21 Asymptomatic human immunodeficiency virus [HIV] infection status; Z91.013 Allergy to seafood; Z91.048 Other nonmedicinal substance allergy status
CPT/HCPCS: 99284